=== PATIENT | female | born 1955 | race Caucasian/White ===

== ENCOUNTER 2016-11-10 21:32 | Emergency (ER) ==
[2016-11-10] MEDS ORDERED: ZOFRAN IV ONE (21:54)
[2016-11-10] MEDS ORDERED: ATIVAN IV ONE ×2 (21:54→23:35)
[2016-11-10] MEDS ORDERED: M.V.I.-12 10 ML, FOLIC ACID 1 MG, MAGNESIUM SULFATE 1 GM, THIAMINE 100 MG in NS 1,000 ML IV ONE (21:54)
[2016-11-10] MEDS ORDERED: ZOSYN 4.5 GM/NS 100 ML IV ONE (21:54)
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
[2016-11-10 22:12] LABS: MANUAL DIFF NEEDED? NO
[2016-11-10 22:15] LABS: BASO% 0.5 % (0.0-0.8); EOS# 0.13 X1000 (0.0-0.7); HEMOGLOBIN 11.8 g/dL (12.0-16.0); LYMPH% 41.8 % (20.5-51.1); MCH 30.3 PG (27-31); MCHC 32.8 g/dL (33-37); MCV 92.3 FL (81-99); MONO# 0.41 X1000 (0.11-0.59); MONO% 9.5 % (1.7-9.3); NEUT% 45.2 % (42.2-75.2); PLT 315 X1000 (130-400)
[2016-11-10 22:27] LABS: INR 0.96; PROTIME 9.8 Seconds (9.2-11.7); PTT 22.9 Seconds (22.0-36.0)
[2016-11-10 22:56] LABS: AGAP 19; ALBUMIN 3.3 g/dL (3.5-5.0); ALKALINE PHOSPHATASE 144 U/L (32-104); BUN 7 mg/dL (8-22); CALCIUM 8.7 mg/dL (8.8-10.2); CHLORIDE 97 mmol/L (98-107); CK PROFILE 154 U/L (24-173); COSMO 280; GOT 39 U/L (10-30); GPT 22 U/L (10-36); POTASSIUM 2.7 mmol/L (3.5-5.1); SODIUM 142 mmol/L (136-145); TCO2 26 mmol/L (25-35); TOTAL BILIRUBIN 0.16 mg/dL (0.20-1.00); TOTAL PROTEIN 5.8 g/dL (6.3-8.3)
--- NOTE | 2016-11-10 23:09 | Diag Imaging Result Document ---
PROCEDURE NAME: HEAD/C-SPINE W/O CONTRAST - 11/10/2016 STUDY: CT brain and cervical spine without contrast. BRAIN: No parenchymal hemorrhage. No epidural or subdural hematoma. No subarachnoid hemorrhage. No skull fracture. No sinus opacification. No hydrocephalus. No mass identified on this contrasted exam. IMPRESSION: No hemorrhage. No injury. CT CERVICAL SPINE WITHOUT CONTRAST: There is good alignment to the cervical spine. No precervical soft tissue swelling. No subluxation. No fracture. IMPRESSION: No acute bony injury. A preliminary report was given at 10:30 p.m.
[2016-11-10 23:31] LABS: URINE CULTURE NEEDED? NO; URINE MICRO REVIEW NEEDED? NO; URINE SOURCE CLEAN CATCH
[2016-11-10] MEDS ORDERED: POTASSIUM CHLORIDE 20 MEQ/SWI 100 ML IV ONE (23:34)
[2016-11-10 23:35] LABS: BILIRUBIN URINE NEGATIVE (NEGATIVE); BLOOD URINE NEGATIVE (NEGATIVE); COLOR YELLOW; GLUCOSE URINE NEGATIVE (NEGATIVE); LEUKOCYTES URINE NEGATIVE (NEGATIVE); NITRITE URINE NEGATIVE (NEGATIVE); PROTEIN URINE NEGATIVE (NEGATIVE); SP GRAVITY URINE 1.006; TURBIDITY URINE CLEAR (CLEAR); UR EPITHELIAL CELLS <10 /HPF (<10); URINE BACTERIA NEGATIVE /HPF; URINE RBC <10 /HPF (<10); URINE WBC <10 /HPF (<10); UROBILINOGEN URINE NORMAL (NORMAL)
[2016-11-10] MEDS ORDERED: KLOR-CON PO ONE (23:35)
[2016-11-10] MEDS ORDERED: GEODON IM ONE (23:42)
[2016-11-10] MEDS ORDERED: STERILE WATER INJ. INJ ONE (23:42)
[2016-11-10 23:50] LABS: UR AMPHETAMINES QUAL NONE DETECTED (NONE DETECT); UR BARBITUATES QUAL NONE DETECTED (NONE DETECT); UR BENZODIAZEPIN QUAL PRESUMPTIVE POSITIVE (NONE DETECT); UR CANNABINOIDS QUAL NONE DETECTED (NONE DETECT); UR COCAINE QUAL NONE DETECTED (NONE DETECT); UR METHADONE QUAL NONE DETECTED (NONE DETECT); UR OPIATES QUAL NONE DETECTED (NONE DETECT); UR OXYCODONE QUAL NONE DETECTED (NONE DETECT); UR PCP QUAL NONE DETECTED (NONE DETECT)
[2016-11-11] MEDS ORDERED: POTASSIUM CHLORIDE 20% LIQUID PO ONE (06:50)
--- NOTE | 2016-11-11 08:02 | Diag Imaging Result Document ---
PROCEDURE NAME: CHEST-2 VIEWS - 11/10/2016 FRONTAL AND LATERAL CHEST, THREE VIEWS: FINDINGS: The lungs are well expanded. The heart is not enlarged. The vessels are not distended. No pneumonia. No pleural effusions. IMPRESSION: No acute abnormality.
--- NOTE | 2016-11-11 08:07 | Diag Imaging Result Document ---
PROCEDURE NAME: PELVIS - 11/10/2016 PELVIS SINGLE VIEW: FINDINGS: No fracture. No dislocation. IMPRESSION: No acute bony injury.
[2016-11-11 10:37] LABS: AGAP 11; ALBUMIN 3.4 g/dL (3.5-5.0); ALKALINE PHOSPHATASE 147 U/L (32-104); BUN 5 mg/dL (8-22); CALCIUM 8.2 mg/dL (8.8-10.2); CHLORIDE 102 mmol/L (98-107); COSMO 278; GOT 44 U/L (10-30); GPT 23 U/L (10-36); POTASSIUM 4.4 mmol/L (3.5-5.1); SODIUM 141 mmol/L (136-145); TCO2 28 mmol/L (25-35); TOTAL BILIRUBIN 0.24 mg/dL (0.20-1.00); TOTAL PROTEIN 5.7 g/dL (6.3-8.3)
[2016-11-11 12:31] VITALS: BP 121/71
== END 2016-11-11 12:31 | disposition home or self-care (01) ==
LOC: ED 21:32
DX: F60.2 Antisocial personality disorder (principal); F91.8 Other conduct disorders; R45.1 Restlessness and agitation; S40.022A Contusion of left upper arm, initial encounter; S40.021A Contusion of right upper arm, initial encounter; S40.812A Abrasion of left upper arm, initial encounter; S40.811A Abrasion of right upper arm, initial encounter; S00.83XA Contusion of other part of head, initial encounter; S00.81XA Abrasion of other part of head, initial encounter; R42 Dizziness and giddiness; R47.81 Slurred speech; S61.512D Laceration without foreign body of left wrist, subsequent encounter; Y90.8 Blood alcohol level of 240 mg/100 ml or more; Z98.890 Other specified postprocedural states
CPT/HCPCS: 70450; 71020; 72125; 72170; 80053; 81001; 82150; 82550; 84484; 85025; 85610; 85730; 87040; 93005; 96365; 96366; 96367; 96375; 96376; G0480; J2060; J2405; J2543; J3411; J3475; J3480; J7030; 80320; 80324; 80345; 80346; 80349; 80353; 80358; 80361; 80365; 83992

== ENCOUNTER 2016-12-09 23:48 | Inpatient (IN) ==
[2016-12-10] MEDS ORDERED: NS 1,000 ML IV ONE (00:28)
[2016-12-10] MEDS ORDERED: M.V.I.-12 10 ML, FOLIC ACID 1 MG, MAGNESIUM SULFATE 1 GM, THIAMINE 100 MG in NS 1,000 ML IV ONE (00:29)
[2016-12-10 00:55] LABS: HEMOGLOBIN 11.3 g/dL (12.0-16.0); IMM GRAN# 0.03 X1000 (0.0-0.04); IMM GRAN% 0.5 % (0.0-0.5)
[2016-12-10 01:11] LABS: URINE CULTURE NEEDED? NO; URINE MICRO REVIEW NEEDED? NO; URINE SOURCE CATH
[2016-12-10 01:13] LABS: BILIRUBIN URINE NEGATIVE (NEGATIVE); BLOOD URINE NEGATIVE (NEGATIVE); COLOR YELLOW; GLUCOSE URINE NEGATIVE (NEGATIVE); LEUKOCYTES URINE NEGATIVE (NEGATIVE); NITRITE URINE NEGATIVE (NEGATIVE); PH URINE 6.5; PROTEIN URINE NEGATIVE (NEGATIVE); SP GRAVITY URINE 1.002; TURBIDITY URINE CLEAR (CLEAR); UROBILINOGEN URINE NORMAL (NORMAL)
[2016-12-10 01:27] LABS: UR AMPHETAMINES QUAL NONE DETECTED (NONE DETECT); UR BARBITUATES QUAL NONE DETECTED (NONE DETECT); UR BENZODIAZEPIN QUAL NONE DETECTED (NONE DETECT); UR CANNABINOIDS QUAL NONE DETECTED (NONE DETECT); UR COCAINE QUAL NONE DETECTED (NONE DETECT); UR METHADONE QUAL NONE DETECTED (NONE DETECT); UR OPIATES QUAL NONE DETECTED (NONE DETECT); UR OXYCODONE QUAL NONE DETECTED (NONE DETECT); UR PCP QUAL NONE DETECTED (NONE DETECT)
[2016-12-10 01:27] LABS: EOS# 0.01 X1000 (0.0-0.7); EOS% 0.2 % (0.0-10.0); HEMATOCRIT 30.9 % (37.0-47.0); LYMPH# 0.68 X1000 (1.2-3.4); LYMPH% 11.1 % (20.5-51.1); MANUAL DIFF NEEDED? NO; MCH 31.8 PG (27-31); MCHC 36.6 g/dL (33-37); MONO# 1.15 X1000 (0.11-0.59); MONO% 18.7 % (1.7-9.3); MPV 9.7 FL (7.4-10.4); NEUT% 69.5 % (42.2-75.2); PLT 314 X1000 (130-400); RBC 3.55 XMIL (4.2-5.4)
[2016-12-10] MEDS ORDERED: G.I. COCKTAIL PO ONE (01:28)
[2016-12-10 01:53] LABS: SODIUM 114 mmol/L (136-145)
[2016-12-10 01:54] LABS: AGAP 17; ALBUMIN 3.2 g/dL (3.5-5.0); ALKALINE PHOSPHATASE 168 U/L (32-104); AMYLASE 62 U/L (20-200); BUN 14 mg/dL (8-22); CALCIUM 8.7 mg/dL (8.8-10.2); CHLORIDE 72 mmol/L (98-107); COSMO 232; GOT 48 U/L (10-30); GPT 61 U/L (10-36); LIPASE 124 U/L (13-60); POTASSIUM 3.5 mmol/L (3.5-5.1); TCO2 25 mmol/L (25-35); TOTAL BILIRUBIN 1.41 mg/dL (0.20-1.00); TOTAL PROTEIN 5.8 g/dL (6.3-8.3)
[2016-12-10] MEDS ORDERED: ZOFRAN IV ONE (02:04)
[2016-12-10] MEDS ORDERED: MORPHINE IV ONE (02:05)
--- NOTE | 2016-12-10 02:44 | PROVIDER DOCUMENTATION ---
This chart was entered by Eliel Rajan Scribe, acting as scribe for Brandon Vallejo MD. [id number] Abuse/Overdose - General Chief Complaint: Intoxicated Stated Complaint: INTOXICATED Time Seen by Provider: 12/10/16 00:18 Source: patient Allergies/Adverse Reactions: Allergies Allergy/AdvReac Type Severity Reaction Status Date / Time No Known Allergies Allergy Verified 12/10/16 00:25 Home Medications: Home Medication List Medication Instructions Recorded Confirmed Last Taken Type Home Meds Unobtainable 11/10/16 12/10/16 Unknown History - History of Present Illness-Drug/Alcohol Nature of Presenting Problem: Pt is a 61 yof who presents to ER via EMS after family called due to concerns of pt's Etoh consumption. Pt has hx if etoh abuse and requested to go to etoh rehab (on exam). This episode of drinking or use began:: 5 days ago Severity: reports: moderate Psychiatric Complaints: reports: anxiety, depressed, frustrated. denies: angry , agitated, altered mental status, confused, hallucinating, hostile, homicidal thoughts, impaired concentration, ingestion, injury, insomnia, irritability, paranoid, , rapid pulse, restlessness, suicidal ideation, tremor Associated Symptoms: reports: anxiety, trouble walking. denies: arm pain, back/ neck pain, chest pain, constipation, cough, diaphoresis, diarrhea, dizziness, EENT symptoms, fatigue, fever/chills, genitourinary problems, headaches, heartburn, joint pain, loss of appetite, malaise, muscle aches, sinus congestion /drainage, nausea, rash, seizure, shortness of breath, sensory/motor loss, pain with inspiration, swelling/mass in abdomen, syncope, vomiting, weakness Any injuries associated with this episode of intoxication?: No Similar Symptoms Previously?: Yes Recently seen or treated by another doctor?: Yes - Substance Abuse Substance Use: reports: alcohol - Alcohol Abuse Usually drinks:: daily Review of Systems - Adult - REVIEW OF SYSTEMS - ADULT Constitutional: reports: alton. denies: chills, fever, night sweats, weight gain, weight loss Eyes: reports: no symptoms reported Ears, Nose, Mouth & Throat: reports: no symptoms reported Cardiovascular: reports: no symptoms reported Respiratory: reports: no symptoms reported Gastrointestinal: denies: abdominal pain, hematemesis, constipation, diarrhea, difficulty swallowing, frequent heartburn, nausea, poor appetite, rectal bleeding, vomiting Genitourinary: reports: no symptoms reported Musculoskeletal: reports: no symptoms reported Integumentary: reports: no symptoms reported Neurological: reports: dizziness/vertigo. denies: ataxia, headache/migraines, loss of balance, numbness, paresthesia, seizure, slurred speech, syncope, tremors Psychiatric: reports: anxiety, depression, emotional problems. denies: anti- depressant use, alcohol/drug dependence, insomnia, panic attacks, suicidal thoughts Endocrine: reports: no symptoms reported Hematologic/Lymphatic: reports: no symptoms reported Allergic/Immunologic: reports: no symptoms reported All Other Systems: Reviewed and Negative Past History - Adult - PAST MEDICAL HISTORY-ADULT Review of Records: reports: Nursing Assessment Review, Medications Reviewed Psychiatric: reports: depression - PRIOR SURGERIES/PROCEDURES Surgical/Procedure History: reports: none - IMMUNIZATION STATUS Childhood Immunizations: See Nurse Assessment Flu Vaccine: See Nurse Assessment Physical Exam-General - PHYSICAL EXAM-ADULT Initial Vital Signs Reviewed: Yes - CONSTITUTIONAL General Appearance: appears well, alert, mild distress, lethargic, slow to respond, obtunded. negative: no apparent distress - EYES Eyes: PERRL/EOMI, pink conjunctivae, fundi clear, no AV nicking - HEAD, EARS, NOSE, MOUTH & THROAT HENMT: normocephalic/atraumatic, moist mucous membranes, normal ENT inspection, TMs normal, pharynx normal. negative: pharyngeal erythema, tonsillar exudate, TM abnormal - NECK Neck: non-tender, full range of motion, supple. negative: C-spine tenderness, limited range of motion - RESPIRATORY Respiratory: chest non-tender, lungs clear, normal breath sounds, no pleuratic chest pain, no respiratory distress, no accessory muscle use. negative: respiratory distress, decreased breath sounds, accessory muscle use, crackles, stridor, wheezing - CARDIOVASCULAR Cardiovascular: normal peripheral pulses, regular rate, rhythm. negative: bradycardia, tachycardia, irregularly irregular - GASTROINTESTINAL (ABDOMEN) Abdominal Exam: normal bowel sounds, non tender, soft, no organomegaly, no pulsatile mass. negative: abnormal bowel sounds, distended, guarding, tenderness - MUSCULOSKELETAL Back Exam: no CVA tenderness, no vertebral tenderness. negative: CVA tenderness , decreased range of motion, ecchymosis, muscle spasm, swelling, vertebral tenderness Extremity: normal range of motion, non-tender, normal gait, normal inspection, no pedal edema, no calf tenderness, normal capillary refill. negative: deformity, erythema, inflammation, pedal edema, swelling, tenderness - SKIN Integumentary: normal color, normal turgor, warm/dry. negative: diaphoresis, ecchymosis, erythema, laceration(s), swelling, tenderness, warm - NEUROLOGIC Neurologic: assistant to the dean II-XII nml as tested, grossly normal, no motor/sensory deficits . negative: facial droop, focal weakness, motor weakness, sensory deficit - PSYCHIATRIC Psych/Mental Status: normal thought content, normal thought process, oriented x 3, depressed affect. negative: normal mood/affect Progress - PLAN OF CARE/RESULTS Progress/Plan/Lab Results: Vital Signs - 8 hr 12/09/16 23:48 12/10/16 00:42 12/10/16 01:30 Temperature 99.2 F 99.0 F Pulse Rate 77 78 79 Respiratory Rate 18 24 23 Blood Pressure 147/86 125/72 107/73 O2 Sat by Pulse Oximetry 100 100 100 12/10/16 02:28 Temperature Pulse Rate 76 Respiratory Rate 20 Blood Pressure 125/70 O2 Sat by Pulse Oximetry 99 Laboratory Results - last 24 hr 12/10/16 12/10/16 12/10/16 00:05 00:05 00:05 WBC 6.15 RBC 3.55 L Hgb 11.3 L Hct 30.9 L MCV 87.0 MCH 31.8 H MCHC 36.6 RDW Std Deviation 17.7 H Plt Count 314 MPV 9.7 Immature Gran % (Auto) 0.5 Neut % (Auto) 69.5 Lymph % (Auto) 11.1 L Robeson % (Auto) 18.7 H Eos % (Auto) 0.2 Baso % (Auto) 0.0 Immature Gran # (Auto) 0.03 Neut # (Auto) 4.28 Lymph # (Auto) 0.68 L Robeson # (Auto) 1.15 H Eos # (Auto) 0.01 Baso # (Auto) 0.00 Sodium 114 L* Potassium 3.5 Chloride 72 L Carbon Dioxide 25 Anion Gap 17 BUN 14 Creatinine 0.5 Estimated GFR/1.73 m2 > 60 BUN/Creatinine Ratio 28 Glucose 104 Calculated Osmolality 232 Calcium 8.7 L Total Bilirubin 1.41 H AST 48 H ALT 61 H Alkaline Phosphatase 168 H Total Protein 5.8 L Albumin 3.2 L Globulin 2.6 Albumin/Globulin Ratio 1.2 Amylase 62 Lipase 124 H Urine Source Urine Color Urine Turbidity Urine pH Ur Specific [place] Urine Protein Ur Glucose (Stick) Ur Ketones (Stick) Urine Blood Urine Nitrite Urine Bilirubin Urobilinogen Dipstick Urine Leukocytes Urine Opiates Screen Ur Oxycodone Screen Ur Methadone, Qual Ur Barbiturates Screen Ur Phencyclidine Scrn Ur Amphetamines Screen U Benzodiazepines Scrn Urine Cocaine Screen U Cannabinoids Screen Plasma/Serum Ethyl Alc 12/10/16 12/10/16 00:05 00:30 WBC RBC Hgb Hct MCV MCH MCHC RDW Std Deviation Plt Count MPV Immature Gran % (Auto) Neut % (Auto) Lymph % (Auto) Robeson % (Auto) Eos % (Auto) Baso % (Auto) Immature Gran # (Auto) Neut # (Auto) Lymph # (Auto) Robeson # (Auto) Eos # (Auto) Baso # (Auto) Sodium Potassium Chloride Carbon Dioxide Anion Gap BUN Creatinine Estimated GFR/1.73 m2 BUN/Creatinine Ratio Glucose Calculated Osmolality Calcium Total Bilirubin AST ALT Alkaline Phosphatase Total Protein Albumin Globulin Albumin/Globulin Ratio Amylase Lipase Urine Source CATH Urine Color YELLOW Urine Turbidity CLEAR Urine pH 6.5 Ur Specific [place] 1.002 Urine Protein NEGATIVE Ur Glucose (Stick) NEGATIVE Ur Ketones (Stick) TRACE A Urine Blood NEGATIVE Urine Nitrite NEGATIVE Urine Bilirubin NEGATIVE Urobilinogen Dipstick NORMAL Urine Leukocytes NEGATIVE Urine Opiates Screen NONE DETECTED Ur Oxycodone Screen NONE DETECTED Ur Methadone, Qual NONE DETECTED Ur Barbiturates Screen NONE DETECTED Ur Phencyclidine Scrn NONE DETECTED Ur Amphetamines Screen NONE DETECTED U Benzodiazepines Scrn NONE DETECTED Urine Cocaine Screen NONE DETECTED U Cannabinoids Screen NONE DETECTED Plasma/Serum Ethyl Alc Orders Category Date Time Status [facility] [place] Communication Order DIRECTED Care 12/10/16 02:05 Active ALCOHOL BLOOD Stat Lab 12/10/16 00:05 Completed AMYLASE [CHEM] Stat Lab 12/10/16 00:05 Completed CBC WITH ELECTRONIC DIFF [HEME] Stat Lab 12/10/16 00:05 Completed CMP [COMPREHENSIVE METABOLIC PANEL] [CHEM] Stat Lab 12/10/16 00:05 Completed LIPASE [CHEM] Stat Lab 12/10/16 00:05 Completed UA NIMS W/REFLEX CULT [URINALYSIS] Stat Lab 12/10/16 00:05 Results UDS [URINE DRUG SCREEN] Stat Lab 12/10/16 00:30 Completed 0.9% Sodium Chloride Inj [Ns] 1,000 ml Med 12/10/16 00:28 Discontinued IV 999 mls/hr Lido/Dupree Alk/Al&mg Hydrox [G.i. Cocktail] Med 12/10/16 01:28 Discontinued 30 ml PO NOW ONE Morphine Med 12/10/16 02:05 Discontinued 4 mg IV NOW ONE Mvi [M.v.i.-12] 10 ml Med 12/10/16 00:29 Discontinued Folic Acid 1 mg Magnesium Sulfate 1 gm Thiamine 100 mg 0.9% Sodium Chloride Inj [Ns] 1,000 ml IV NOW Ondansetron [Zofran] Med 12/10/16 02:04 Discontinued 4 mg IV NOW ONE Transfer/Admit Order [TRANSFER] Routine Transfer 12/10/16 02:19 Ordered Result Diagrams: 12/10/16 00:05 12/10/16 00:05 - REASSESSMENT Reassessment #1 Time Reassessed: 02:17 Status: other (Pt was discovered to be incontinent of stool/urine, appeared as though had been there for a while and pt now has ulcers and irritation to her bottom and vaginal area. Family is in charge of taking care of pt, but pt reports that her daughter has not been changing her.) Reassessment #2 Time Reassessed: 02:43 Status: improving (some pain relief from morphine) - CONSULTS/PCP/HOSPITALIST Notification #1 *Consult/PCP/Hospitalist*: Dr. Worrell (Hospitalist) Time Discussed: 02:15 Consult Disposition: Admit Departure - Departure Time of Disposition Decision: 02:15 DIAGNOSIS: Hyponatremia, Acute pancreatitis Disposition: ADMITTED INPATIENT 09 Certified Medical Emergency: Emergent Condition: Stable Additional Freetext Instructions: ED Follow Up Instructions: You have been treated by a care provider in the Emergency Department. These instructions are being provided to you so you can have an understanding of how to care for yourself upon discharge. Upon discharge from the Emergency Department, you are responsible for making arrangements for follow-up care by a physician of your choice. Take all prescribed medications as directed. Return to the Emergency Department immediately for any new or worsening symptoms. You may call the Physician Referral phone number at [phone] to obtain a list of Physicians who are taking new patients. Referrals and Follow-Ups: None,PCP [Primary Care Provider] - This chart was documented by the indicated scribe, (Eliel Rajan, Yasmin) and accurately reflects the services I performed and decisions made by me, Brandon Vallejo MD, as attested by the provider's signature.
[2016-12-10] MEDS ORDERED: NACL 3% 100 ML IV ONE ×2 (03:30→04:00)
--- NOTE | 2016-12-10 03:30 | HISTORY AND PHYSICAL ---
CHIEF COMPLAINT: Abdominal pain and Concern for alcohol abuse. HISTORY OF PRESENT ILLNESS: This is a 61-year-old, female who was brought to the emergency department after family called due to concerns for patient's alcohol consumption. Upon my examination here, the patient reports that during the last 5-10 days, she was complaining of abdominal pain in the epigastric area that was getting worse. She also was feeling sick but she was not vomiting. Today, the pain started getting worse so that is why she preferred to come here. She reports drinking like between 1/2 a gallon and 1 gallon of vodka daily. Last drinking was 2 days ago. The patient reported that while she is drinking alcohol, she does not need anything. Upon ER evaluation, she was found to have a sodium of 114 and also evaluation of lipase so patient is being admitted to the hospital for severe hyponatremia and acute alcoholic pancreatitis. PAST MEDICAL HISTORY: Patient has depression but does remember what medication she is on. PAST SURGICAL HISTORY: None. ALLERGIES: The patient is not allergic to anything. SOCIAL HISTORY: The patient lives with daughter and grandson. Patient reports drinking half a gallon of vodka daily. Denies smoking or using any illicit drugs. REVIEW OF SYSTEMS: The patient is not a good historian. All symptoms are related to H and P. PHYSICAL EXAMINATION: GENERAL: This is a 61-year-old, female lying in bed, in no acute distress. HEENT: Head is normocephalic and atraumatic. Anicteric sclerae and pale conjunctivae. Mucous membranes moist. VITAL SIGNS: Temperature 99 degrees, heart rate 76, respiratory rate 20, blood pressure 125/70, O2 saturation 99% on room air. NECK: Supple. No JVD noted. No carotid bruits. No lymphadenopathy. No thyromegaly. CARDIOVASCULAR: S1 and S2 heard. There is a systolic murmur located in the mitral area with radiation to the axilla. RESPIRATORY: Clear bilaterally to auscultation. No work of breathing or using accessory muscles. ABDOMEN: Soft. Mildly tender to palpation in the epigastric area. No signs of peritoneal irritation. EXTREMITIES: Marked bilateral edema in both lower extremities. NEUROLOGICAL: Patient moves 4 extremities. She is a poor historian. LABORATORY DATA: White cell count 6.15, hemoglobin 11.3, hematocrit 30.9, platelets 314,000. Sodium 114, potassium 3.5, chloride 72, BUN 14, creatinine 0.5, and glucose 104. Alcohol level of 0. ASSESSMENT/PLAN: 1. Acute pancreatitis. 2. Severe hyponatremia. 3. History of depression. PLAN: 1. The patient is going to be admitted to the hospital because of the severe hypernatremia definitely related to alcohol abuse. Also, she was found to have a lipase that was elevated. We made the diagnosis of pancreatitis. In any case, we prefer to have a CT of the abdomen with and without contrast to have a better visualization of the pancreatitis. We will keep this patient NPO except for medications. Because of the increasing low sodium, we are going to provide 3% normal saline to be given 100 mL, to be given 10-15 minutes. We are going to monitor the sodium closely, like q.4 hours today and we will go from there. We are going to provide also IV fluid resuscitation as well. For possible alcohol withdrawal, we will start Librium 50 mg p.o. t.i.d. The patient will be on Ativan just in case of agitation or seizures. 2. . 3. Because this patient lives alone and she has a history of a psychiatric disorder, we will consult social sciences instructor to most probably look for placement for this patient. cc: Grayson Razo MD
[2016-12-10 03:47] LABS: UR EPITHELIAL CELLS <10 /HPF (<10); URINE BACTERIA NEGATIVE /HPF; URINE RBC <10 /HPF (<10); URINE WBC <10 /HPF (<10)
[2016-12-10] MEDS: LOVENOX SUBQ SCH (04:00)
[2016-12-10] MEDS: MORPHINE IV PRN ×4 (04:10→23:50)
[2016-12-10] MEDS ORDERED: BLISTEX MEDICATED BERRY LIP BALM TOP PRN (05:58)
[2016-12-10] MEDS: NS 1,000 ML IV SCH ×2 (06:13→17:15)
--- NOTE | 2016-12-10 06:19 | Diag Imaging Result Document ---
PROCEDURE NAME: ABDOMEN/PELVIS W/WO CONTRAST - 12/10/2016 CT ABDOMEN AND PELVIS WITH AND WITHOUT INTRAVENOUS CONTRAST: FINDINGS: Noncontrasted images performed. No renal stones. No hydronephrosis. No perinephric inflammation. No bowel obstruction. No abscess. Post contrasted images performed. There is a tiny amount of pneumomediastinum. No pneumothorax. There is severe fatty infiltration of the liver. The patient has had a gastric bypass procedure and cholecystectomy. Tiny hiatal hernia. Normal spleen and adrenal glands. No pancreatic calcifications. No pseudocyst. No inflammation about the pancreas. Subtle irregular enhancement of the kidneys. No aortic aneurysm. There is a Ortiz catheter within the urinary bladder. No focal abnormality to the urinary bladder. Normal uterus. No free pelvic fluid. IMPRESSION: 1. Small amount of pneumomediastinum of uncertain etiology. 2. No CT evidence of pancreatitis. 3. Gastric bypass and cholecystectomy. 4. Severe fatty infiltration of the liver. 5. Questionable mild pyelonephritis. 6. Tiny hiatal hernia. A preliminary report was given at 3:55 a.m.
[2016-12-10 06:21] LABS: MANUAL DIFF NEEDED? NO
[2016-12-10 06:27] LABS: EOS# 0.01 X1000 (0.0-0.7); EOS% 0.2 % (0.0-10.0); HEMATOCRIT 28.3 % (37.0-47.0); HEMOGLOBIN 10.1 g/dL (12.0-16.0); IMM GRAN# 0.02 X1000 (0.0-0.04); IMM GRAN% 0.5 % (0.0-0.5); LYMPH# 0.69 X1000 (1.2-3.4); LYMPH% 15.8 % (20.5-51.1); MCH 31.8 PG (27-31); MCHC 35.7 g/dL (33-37); MONO# 0.71 X1000 (0.11-0.59); MONO% 16.2 % (1.7-9.3); MPV 9.2 FL (7.4-10.4); NEUT% 67.3 % (42.2-75.2); PLT 282 X1000 (130-400); RBC 3.18 XMIL (4.2-5.4)
[2016-12-10 06:46] LABS: AGAP 14; BUN 10 mg/dL (8-22); CALCIUM 8.2 mg/dL (8.8-10.2); CHLORIDE 90 mmol/L (98-107); COSMO 263; POTASSIUM 2.7 mmol/L (3.5-5.1); SODIUM 132 mmol/L (136-145); TCO2 28 mmol/L (25-35)
[2016-12-10] MEDS: PRILOSEC PO SCH (08:08)
[2016-12-10] MEDS: CALMOSEPTINE OINTMENT TOP PRN ×4 (08:09→20:00)
[2016-12-10 08:17] LABS: AGAP 14; BUN 10 mg/dL (8-22); CALCIUM 7.9 mg/dL (8.8-10.2); CHLORIDE 92 mmol/L (98-107); COSMO 266; POTASSIUM 3.3 mmol/L (3.5-5.1); SODIUM 134 mmol/L (136-145); TCO2 28 mmol/L (25-35)
[2016-12-10] MEDS ORDERED: LIBRIUM PO SCH (09:00)
[2016-12-10] MEDS ORDERED: POTASSIUM CHLORIDE 20% LIQUID PO ONE (10:53)
--- NOTE | 2016-12-10 11:24 | CONSULTATION ---
DATE OF CONSULTATION: 12/10/2016 REASON FOR ADMISSION: Abdominal pain, hyponatremia. REASON FOR CONSULTATION: Hyponatremia. CONSULTING PHYSICIAN: Dr. Worrell HISTORY OF PRESENT ILLNESS: This is a 61-year-old female, brought into the emergency room on day of admission secondary to her alcohol consumption and altered mental status. She complained of abdominal pain while she was in the emergency room. Underwent a CT of the abdomen secondary to elevated lipase and it was found to be negative for pancreatitis however she was found to be significantly hyponatremic with a sodium of 114. She was admitted to the hospital for further workup and treatment. Her hyponatremia was treated with a small dose bolus of 3 % saline 100 mL x2 with routine labs. Sodium responded significantly, and today is at 132. It was noted that the patient drinks between a half a gallon to a gallon of vodka daily, and pretty much has no other intake at that time. The patient today is awake and alert and is able to give some history although she is more concerned about abdominal pain and treatment for that. PAST MEDICAL HISTORY: History of depression. No home medications are noted. The patient has a history of schizophrenia. Minimal previous hospitalization records. ALLERGIES: NKDA HOME MEDICATIONS: None listed. FAMILY HISTORY: Noncontributory. SOCIAL HISTORY: ETOH use 1/2 to1 gallon of vodka daily. She lives with her daughter. She has previous episodes of AMS secondary to ETOH use. ROS: As noted above in HPI. PHYSICAL EXAM: General: Middle aged female who appears older than stated age. She is quite concerned about receiving pain relief for her abdominal pain. HEENT: PERRL, EOMI, OMM, dentition poor. Neck: No JVD. Trachea midline. CV: No murmur or gallop. Regular on monitor. PULM: CTA bilaterally. No increased work of breathing. ABD: Flat, positive bowel sounds. Diffuse tenderness. : Ortiz with clear yellow urine. Extremities: Trace pretibial edema. Moving all extremities. Integ: Warm and dry. Ecchymoses noted bilateral upper extremities. Neuro: Grossly nonfocal. LABS: WBC 4.3, hemoglobin 10.1, sodium 132, CO2 25, BUN 10, creatinine 0.5. Imaging: CT abd negative for pancreatitis. ASSESSMENT AND PLAN: 1. Hyponatremia, likely alcohol related potomania, resolved with small dose 3% saline bolus and now on normal saline. Continue serial labs. We have no further suggestions to add at this time. We will sign off. Please do not hesitate to contact us if she has further decline with her function. Thank you for the consult. Seen, data reviewed, discussed with Virgie Vega on 12/10/16. I agree with the above assessment and plan of care. rg Dictated by MEHRDAD Wing for Ang Phelps MD cc: Ang Phelps MD [facility]
--- NOTE | 2016-12-10 11:48 | PROGRESS NOTE ---
DATE: 12/10/2016 SUBJECTIVE: Today Ms. Freeman referred to be doing okay. She denies any chest pain. She does have some abdominal discomfort. OBJECTIVE: Vital Signs: Blood pressure is 116/62, pulse of 92, respirations 22, temperature is 97.9 degrees. General: Ms. Freeman is a 61-year-old female. She was in bed. She did not seem to be in any remarkable distress. HEENT: Mucosa is pink and dry. Anicteric and acyanotic. Neck: Supple. Chest: Clear. Cardiovascular: Regular rate and rhythm. There are no murmurs, no rubs, no gallops. Abdomen: Soft, nontender. Extremities: There is about 3+ pedal edema. Abdomen: Soft, distended. There seems to be some fluid dullness. ADVANCED SEAL DELIVERY SYSTEM: Patient is alert, oriented to person and to place. Disoriented to time. Cerebellar functions were not explored. LABORATORY DATA: WBC is 4.37, hemoglobin is 10.1, platelet count of 282,000. Chemistry is reviewed. Sodium is 134, potassium is 3.3, chloride is 92, bicarb is 28. Urine osmolarity was 82 on presentation and urine sodium was 10. DIAGNOSTIC STUDIES: A CT scan of the abdomen and pelvis which was done on presentation did show a small amount of pneumomediastinum of uncertain significance. No CT evidence of pancreatitis. Gastric bypass and cholecystectomy. Severe fatty infiltration of the liver. Questionable mild pyelonephritis and tiny hiatal hernia. ASSESSMENT: 1. Alcohol abuse. The patient normally takes about a half a gallon to a gallon of vodka on a daily basis. Her toxicology of alcohol was 0 when she came in. She is at risk for DT. We will therefore keep a very close eye on her. Alcohol cessation was recommended. 2. Severe hyponatremia. I think this is a combination of alcohol induced but patient is also significantly dehydrated. I think will continue with the hydration with normal saline, get her a euvolemic, and then start to address the tonicity. 3. Mildly elevated lipase, not in the range consistent with acute pancreatitis. However, we will keep a very close eye. Patient does not have any CT evidence of acute pancreatitis. However, she does have some epigastric to left side abdominal discomfort. Will continue treating this more symptomatically as if it was an acute pancreatitis. 4. Fatty liver disease secondary to alcohol disorder. 5. Transaminitis due to fatty liver disease. 6. Mild hiatal hernia noted on CT scan. 7. Lower extremity edema which I think is due to hypoalbuminemia and other nutritional deficiencies. PLAN: In general, Ms. Freeman seems to be doing fine. We are going to continue with the hydration. Will continue with pain management. I will start her on a regular diet and cut down on the morphine which is 2 g IV q.2 to q.4. I think patient is relatively stable to go to the floor if she is able to tolerate her diet. cc: Vidal Rosales MD
[2016-12-10] MEDS: LIBRIUM PO SCH ×2 (12:53→21:00)
[2016-12-10 13:32] LABS: AGAP 12; BUN 8 mg/dL (8-22); CHLORIDE 94 mmol/L (98-107); COSMO 266; SODIUM 133 mmol/L (136-145); TCO2 27 mmol/L (25-35)
[2016-12-10 16:25] LABS: AGAP 11; BUN 6 mg/dL (8-22); CALCIUM 7.8 mg/dL (8.8-10.2); CHLORIDE 93 mmol/L (98-107); COSMO 261; POTASSIUM 3.2 mmol/L (3.5-5.1); SODIUM 131 mmol/L (136-145); TCO2 27 mmol/L (25-35)
[2016-12-10 20:26] LABS: AGAP 14; BUN 6 mg/dL (8-22); CALCIUM 7.8 mg/dL (8.8-10.2); CHLORIDE 94 mmol/L (98-107); COSMO 264; POTASSIUM 3.4 mmol/L (3.5-5.1); SODIUM 133 mmol/L (136-145); TCO2 25 mmol/L (25-35)
--- NOTE | 2016-12-10 20:49 | ECHO REPORT ---
ORDER DATE: 12/10/2016 MEASUREMENTS: Left ventricular end-diastolic diameter 4.2, end systolic diameter 2.3, septal thickness 0.6, posterior wall thickness 0.6, left atrium 2.9, aortic root 2.9 SUMMARY: 1. Adequate quality study. 2. Aortic valve is trileaflet and opens normally. Mitral, tricuspid and pulmonic valves are without obstruction abnormality with mild mitral regurgitation and trace tricuspid regurgitation. Estimated systolic PA pressure by Doppler is 30-35 mmHg. The aortic root is normal in size. 3. Normal left suggested. The left ventricle is hyperdynamic with estimated left ejection fraction of at least 75% without regional wall motion abnormality. Doppler demonstrates a gradient in left trigger outflow tract of 25 mmHg at rest that does not increase with Valsalva maneuver. Doppler suggests normal left ventricular diastolic function. Left atrium, right atrium, right ventricle have normal size with grossly preserved right ventricular systolic performance. 4. No pericardial effusion. 5. Appearance of inferior vena cava suggests normal central venous pressure. CONCLUSIONS: 1. Mild mitral regurgitation. 2. Hyperdynamic left ventricle with estimated left ejection fraction of at least 75%. 3. Resting peak gradient and left outflow tract of 25 mmHg does not increase with Valsalva. cc: MD Grayson Cintron MD
[2016-12-11] MEDS: CALMOSEPTINE OINTMENT TOP PRN ×2 (00:05→07:28)
[2016-12-11] MEDS: ATIVAN IV PRN (01:05)
[2016-12-11] MEDS: NS 1,000 ML IV SCH ×3 (03:22→23:17)
[2016-12-11] MEDS: LOVENOX SUBQ SCH (05:17)
[2016-12-11] MEDS: LIBRIUM PO SCH ×3 (05:18→21:15)
[2016-12-11] MEDS: ZOFRAN IV PRN ×2 (06:36→19:58)
[2016-12-11 06:40] LABS: MANUAL DIFF NEEDED? NO
[2016-12-11 07:01] LABS: EOS# 0.06 X1000 (0.0-0.7); EOS% 1.1 % (0.0-10.0); HEMATOCRIT 28.2 % (37.0-47.0); HEMOGLOBIN 9.5 g/dL (12.0-16.0); IMM GRAN# 0.02 X1000 (0.0-0.04); IMM GRAN% 0.4 % (0.0-0.5); LYMPH# 1.32 X1000 (1.2-3.4); LYMPH% 23.2 % (20.5-51.1); MCH 31.4 PG (27-31); MCHC 33.7 g/dL (33-37); MCV 93.1 FL (81-99); MONO# 0.59 X1000 (0.11-0.59); MONO% 10.4 % (1.7-9.3); MPV 9.8 FL (7.4-10.4); NEUT% 64.9 % (42.2-75.2); PLT 265 X1000 (130-400); RBC 3.03 XMIL (4.2-5.4)
[2016-12-11 07:30] LABS: AGAP 10; BUN 4 mg/dL (8-22); CALCIUM 8.1 mg/dL (8.8-10.2); CHLORIDE 98 mmol/L (98-107); COSMO 266; SODIUM 135 mmol/L (136-145); TCO2 27 mmol/L (25-35)
[2016-12-11] MEDS ORDERED: KLOR-CON PO ONE (08:22)
[2016-12-11] MEDS: PRILOSEC PO SCH (08:51)
[2016-12-11] MEDS: MORPHINE IV PRN ×3 (09:01→23:21)
--- NOTE | 2016-12-11 11:12 | PROGRESS NOTE ---
DATE: 12/11/2016 SUBJECTIVE: Patient reports feeling better. Reports mild nausea but she is not vomiting. She reports no abdominal pain but she claims having back pain. OBJECTIVE: Vital Signs: Temperature 97.2 degrees, heart rate 85, respiratory 14, blood pressure 119/77, O2 saturation 100% on room air. General Examination: This is a chronically ill-looking and frail, 61-year-old female lying in bed, in no acute distress. HEENT: Head is normocephalic, atraumatic. Anicteric sclerae and pale conjunctivae. Mucous membranes moist. Neck: Supple. No JVD noted. No carotid bruits. No lymphadenopathy. No thyromegaly. Cardiovascular: S1, S2 heard. No murmurs, gallops, or rubs. Regular rate and rhythm. Respiratory: Clear bilaterally to auscultation. No work of breathing or using accessory muscles. Abdomen: Soft, nontender to palpation. Bowel sounds present. No organomegaly. Extremities: 3+ pitting edema in both lower extremities. Neurologic exam: Patient is alert and oriented x3. Moves 4 extremities. Is sleepy today. LABORATORY DATA: White cell count 5.72, hemoglobin 9.5, hematocrit 28.2, platelets 265,000. Sodium 135, potassium 3.0. Rest of the BMP is normal. ASSESSMENT AND PLAN: 1. Severe hyponatremia. The sodium is back to normal. I think it was a combination of alcohol abuse and dehydration. At this point, we will continue with IV fluids with normal saline. 2. Mildly elevated lipase. Patient is doing fine with no abdominal pain and although the lipase was slightly elevated at admission, CT scan ruled out pancreatitis. At this time, we are going to continue watching this patient closely here. 3. Alcohol abuse. Patient is a high risk of DTs because usually she takes between half a gallon to a gallon of vodka in a daily basis so, she is on Librium. 4. Fatty liver disease secondary to alcohol disorder. Aware. 5. Transaminitis secondary to chronic alcohol abuse. Aware. 6. Bilateral lower extremity edema. I think this is secondary to hypovolemia because of liver disease. Echocardiogram shows that the cardiac function is okay. 7. Physical deconditioning. We are going to consult physical therapy and see if they recommend this patient can go home versus rehab facility. cc: Grayson Razo MD
[2016-12-12] MEDS: MORPHINE IV PRN ×2 (03:02→09:29)
[2016-12-12] MEDS: LOVENOX SUBQ SCH (05:55)
[2016-12-12] MEDS: LIBRIUM PO SCH ×3 (05:55→21:07)
[2016-12-12 06:48] LABS: MANUAL DIFF NEEDED? NO
[2016-12-12 06:52] LABS: BASO% 0.3 % (0.0-0.8); EOS# 0.13 X1000 (0.0-0.7); EOS% 2.1 % (0.0-10.0); HEMATOCRIT 30.7 % (37.0-47.0); HEMOGLOBIN 9.9 g/dL (12.0-16.0); IMM GRAN# 0.03 X1000 (0.0-0.04); IMM GRAN% 0.5 % (0.0-0.5); LYMPH# 1.58 X1000 (1.2-3.4); LYMPH% 25.6 % (20.5-51.1); MCH 30.7 PG (27-31); MCHC 32.2 g/dL (33-37); MCV 95.3 FL (81-99); MONO# 0.86 X1000 (0.11-0.59); MONO% 13.9 % (1.7-9.3); MPV 9.6 FL (7.4-10.4); NEUT% 57.6 % (42.2-75.2); PLT 290 X1000 (130-400); RBC 3.22 XMIL (4.2-5.4)
[2016-12-12] MEDS: NS 1,000 ML IV SCH (08:51)
[2016-12-12] MEDS: PRILOSEC PO SCH (08:51)
[2016-12-12 12:29] LABS: AGAP 10; BUN 8 mg/dL (8-22); CALCIUM 7.7 mg/dL (8.8-10.2); CHLORIDE 103 mmol/L (98-107); COSMO 269; POTASSIUM 3.9 mmol/L (3.5-5.1); SODIUM 136 mmol/L (136-145); TCO2 23 mmol/L (25-35)
[2016-12-12] MEDS: DIFLUCAN PO SCH (13:22)
[2016-12-12] MEDS: MAALOX PLUS LIQUID PO SCH ×2 (13:22→17:34)
--- NOTE | 2016-12-12 15:37 | PROGRESS NOTE ---
DATE: 12/12/2016 SUBJECTIVE: Patient reports feeling better, although she reports some mild pain and itching in the sacral area. She reports that she was not able to get up for a few weeks. She also reports some burning on urination. OBJECTIVE: Vital Signs: Temperature 97.9 degrees, heart rate 83, respiratory rate 19, blood pressure 110/72, O2 saturation 100% on room air. General: This is a chronically ill-looking and frail, 61-year-old female lying in bed, in no acute distress. HEENT: Head is normocephalic, atraumatic. Anicteric sclerae and pale conjunctivae. Mucous membranes moist. Neck: Supple. No JVD noted. No carotid bruits. No lymphadenopathy. No thyromegaly. Cardiovascular: S1, S2 heard. No murmurs, gallops, or rubs. Regular rate and rhythm. Respiratory: Clear bilaterally to auscultation. No work of breathing or using accessory muscles. Abdomen: Soft, nontender to palpation. Bowel sounds present. No organomegaly. Extremities: 3+ pitting edema in both lower extremities. There is also a sacral superficial wound that coapts to the lumbar area and to the perineal area as well. There is no secretions coming out from there. Neurological: Patient is alert and oriented x3. Moves 4 extremities. LABORATORY DATA: White cell count 6.17, hemoglobin 9.9, hematocrit 30.7, platelets 290,000. BMP shows sodium 136, rest of the BMP is completely unremarkable. ASSESSMENT AND PLAN: 1. Severe hyponatremia. That condition is completely resolved. 2. Mildly elevated lipase. That condition is resolved. Patient is not complaining of any abdominal pain and of course, the computed tomography scan did not show any signs of pancreatitis. 3. Alcohol abuse. Patient has at high risk of delirium tremens because she takes between half a gallon to a gallon of vodka on a daily basis. So we are going to continue with Librium. 4. Fatty liver disease secondary to alcohol disorder, aware. 5. Transaminitis, secondary to alcohol abuse, aware. 6. Bilateral lower extremity edema secondary to hypervolemia. Echocardiogram showed that the cardiac function is stable. Continue with the same management. 7. Physical deconditioning. Patient reports feeling very weak, and the fact that she has this superficial wound in the sacral area does seem to confirm that she was not being very mobile. In any case, we have consulted physical therapy yesterday but for unknown reasons that order fell off, so we have put a consult today, we will check with them and see if they recommend physical therapy at home versus rehab facility. cc: Grayson Razo MD
[2016-12-13] MEDS ORDERED: NS 500 ML ONE (00:06)
[2016-12-13] MEDS: MORPHINE IV PRN ×5 (01:34→22:56)
[2016-12-13] MEDS: ATIVAN IV PRN (01:56)
[2016-12-13] MEDS: ZOFRAN IV PRN (03:46)
[2016-12-13] MEDS: LIBRIUM PO SCH ×3 (05:59→16:01)
[2016-12-13] MEDS: LOVENOX SUBQ SCH (06:00)
[2016-12-13] MEDS: NS 1,000 ML IV SCH ×3 (06:07→16:01)
[2016-12-13] MEDS: DIFLUCAN PO SCH (08:33)
[2016-12-13] MEDS: PRILOSEC PO SCH (08:33)
[2016-12-13] MEDS: MAALOX PLUS LIQUID PO SCH ×3 (08:33→16:01)
--- NOTE | 2016-12-13 11:46 | PROGRESS NOTE ---
DATE: 12/13/2016 SUBJECTIVE: Patient reports feeling still weak. Mild pain and itching in the sacral area. OBJECTIVE: Vital Signs: Temperature 98.4, heart rate 77, respiratory 20, blood pressure 102/59, O2 saturation 100% on room air. General examination: This is a chronically ill-looking and frail, 61-year-old female lying in bed, in no acute distress. HEENT: Head is normocephalic, atraumatic. Anicteric sclerae and pale conjunctivae. Mucous membranes moist. Neck: Supple. No JVD noted. No carotid bruits. No lymphadenopathy. No thyromegaly. Cardiovascular: S1, S2 heard. No murmurs, gallops, or rubs. Regular rate and rhythm. Respiratory: Clear bilaterally to auscultation. No work of breathing or using accessory muscles. Abdomen: Soft, nontender to palpation. Bowel sounds present. No organomegaly. Extremities: 3+ pitting edema in both lower extremities. Skin: There is also a sacral superficial wound that goes up to the lumbar area and to the perineal area as well. There is no secretion coming out from there. Neurological: Patient is alert and oriented x3. Moves 4 extremities. LABORATORY DATA: None. ASSESSMENT AND PLAN: 1. Severe hyponatremia, resolved. 2. Mild elevated lipase, resolved. Patient is eating okay and not complaining of any abdominal pain. 3. Alcohol abuse. Because the patient has high risk of delirium tremens, he was started on Librium, initially 50 mg p.o. 3 times per day, and after 4 days I think we are going to start tapering off to 25 mg p.o. b.i.d. 4. Fatty liver disease secondary to alcohol consumption. We are aware of that. 5. Transaminitis, aware. 6. Physical deconditioning. Patient reports that she has been feeling very weak for some weeks. The patient reports that sometimes she has to crawl and ask for help to her neighbors. 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 At this point, she needs to go definitely to rehab facility, because it is not safe to discharge this patient from here. We have talked with social science analyst and will see if we can get a bed for her as a julito for [facility], considering that this patient does not have insurance. cc: Grayson Razo MD
[2016-12-14] MEDS: ZOFRAN IV PRN (01:14)
[2016-12-14] MEDS: LOVENOX SUBQ SCH (06:00)
[2016-12-14] MEDS: MORPHINE IV PRN ×2 (06:32→10:58)
[2016-12-14] MEDS: DIFLUCAN PO SCH (10:06)
[2016-12-14] MEDS: PRILOSEC PO SCH (10:06)
[2016-12-14] MEDS: LIBRIUM PO SCH ×3 (10:06→16:57)
[2016-12-14] MEDS: MAALOX PLUS LIQUID PO SCH ×3 (10:06→16:58)
[2016-12-14] MEDS: NS 1,000 ML IV SCH ×2 (11:57→21:00)
[2016-12-14] MEDS: NORCO-5 PO PRN ×3 (14:13→21:30)
--- NOTE | 2016-12-14 15:04 | PROGRESS NOTE ---
DATE: 12/14/2016 SUBJECTIVE: The patient reports still feeling weak but according to Physical Therapy and she is able to get up with assistance and she is able to go to the bathroom and go back. Of course, she feels still weak. She also complains of mild abdominal pain around the epigastric area. OBJECTIVE: Vital Signs: Temperature 98.1 degrees, heart rate 81, respiratory rate 20, blood pressure 101/59, O2 saturation 100% on room air. General Examination: This is a chronically ill- looking and frail, 61-year-old female lying in bed, in no acute distress. HEENT: Head is normocephalic and atraumatic. Anicteric sclerae and pale conjunctivae. Mucous membranes moist. Neck: Supple. No JVD noted. No carotid bruits. No lymphadenopathy. No thyromegaly. Cardiovascular Exam: S1-S2 heard. No murmurs, gallops, or rubs. Regular rate and rhythm. Respiratory: Clear bilaterally to auscultation. No work of breathing or using accessory muscles. Abdomen: Soft, nontender to palpation. Bowel sounds present. No organomegaly. Extremities: No clubbing, cyanosis, or edema. Peripheral pulses present in both legs. Neurological: Patient is alert and oriented x3. Able to move her extremities. Cranial nerves 2-12 grossly normal. LABORATORY DATA: None from today. ASSESSMENT AND PLAN: 1. Severe hyponatremia. Resolved. 2. Mild elevated lipase. That condition resolved. Patient is eating okay. 3. Alcohol abuse. Patient is on Librium 25 mg p.o. b.i.d. That is because of high alcohol consumption. She usually drinks between half a gallon and 1 gallon of vodka daily. She is not developing any signs of alcohol withdrawal. 4. Fatty liver disease. That condition was of course related to alcohol consumption. 5. Physical deconditioning. The patient does not have insurance, and very weak to be sent home, it is not safe to send her home. Patient is working with Physical Therapy and doing good progress. Unfortunately we need to keep her here until we find a place for her. cc: Grayson Razo MD
[2016-12-14] MEDS: CARAFATE PO SCH ×2 (16:57→20:59)
[2016-12-15] MEDS: ATIVAN IV PRN (00:24)
[2016-12-15] MEDS: LOVENOX SUBQ SCH (06:24)
[2016-12-15] MEDS: NORCO-5 PO PRN ×3 (06:24→20:29)
[2016-12-15] MEDS: DIFLUCAN PO SCH (08:55)
[2016-12-15] MEDS: PRILOSEC PO SCH (08:55)
[2016-12-15] MEDS: LIBRIUM PO SCH ×3 (08:55→16:36)
[2016-12-15] MEDS: NS 1,000 ML IV SCH ×3 (08:55→18:59)
[2016-12-15] MEDS: MAALOX PLUS LIQUID PO SCH ×3 (08:55→16:36)
[2016-12-15] MEDS: CARAFATE PO SCH ×4 (08:55→20:29)
[2016-12-15] MEDS: MORPHINE IV PRN ×2 (13:14→18:53)
--- NOTE | 2016-12-15 14:07 | PROGRESS NOTE ---
DATE: 12/15/2016 SUBJECTIVE: Patient reports feeling fine. She is still feeling weak. No abdominal pain. No nausea or vomiting. OBJECTIVE: Vital Signs: Temperature 98.3 degrees, heart rate 86, respiratory rate 18, blood pressure 113/69, O2 saturation 99% on room air. General Examination: This is a chronically ill- looking and frail, looking older than her age, 61-year-old female lying in bed, in no acute distress. HEENT: Head is normocephalic, atraumatic. Anicteric sclerae and pale conjunctivae. Mucous membranes moist. Neck: Supple. No JVD noted. No carotid bruits. No lymphadenopathy. No thyromegaly. Cardiovascular: S1, S2 heard. No murmurs, gallops, or rubs. Regular rate and rhythm. Respiratory: Clear bilaterally to auscultation. No work of breathing or using accessory muscles. Abdomen: Soft, nontender to palpation. Bowel sounds present. No organomegaly. Extremities: No clubbing, cyanosis, or edema. Peripheral pulses present in both legs. Neurological: Patient alert. There is 2+ pitting edema in both lower extremities. No clubbing or cyanosis. Peripheral pulses present in both legs but faint. Neurologic: Patient alert and oriented x3. Able to move her extremities. Cranial nerves 2-12 grossly normal. LABORATORY DATA: None from today. ASSESSMENT AND PLAN: 1. Severe hyponatremia. Resolved. 2. Mild elevated lipase and abdominal pain. Resolved. Patient is feeling okay. 3. Alcohol abuse. Patient is on Librium 25 mg p.o. b.i.d. because she usually drinks between half a gallon and one gallon of vodka daily. Patient is doing fine. Currently on Librium 25 mg p.o. b.i.d. We will continue with the same management. 4. No signs of alcohol withdrawal at all. 5. Fatty liver disease. Aware. 6. Physical deconditioning. Patient is very weak and she does not have any insurance. She does have Medicaid from [place]. psychotherapist social worker is working on placement but definitely she is not safe to send her home. We will see what social media content specialist has to say on Saturday. cc: Grayson Razo MD
[2016-12-15] MEDS: CALMOSEPTINE OINTMENT TOP PRN (20:30)
[2016-12-16] MEDS: MORPHINE IV PRN ×5 (00:13→21:01)
[2016-12-16] MEDS: ZOFRAN IV PRN ×2 (01:24→21:01)
[2016-12-16] MEDS: NORCO-5 PO PRN (04:06)
[2016-12-16] MEDS: NS 1,000 ML IV SCH ×2 (04:06→15:52)
[2016-12-16] MEDS: LOVENOX SUBQ SCH (04:40)
[2016-12-16 07:31] LABS: MANUAL DIFF NEEDED? NO
[2016-12-16 07:36] LABS: BASO% 0.6 % (0.0-0.8); EOS# 0.04 X1000 (0.0-0.7); EOS% 1.1 % (0.0-10.0); HEMATOCRIT 28.9 % (37.0-47.0); HEMOGLOBIN 9.3 g/dL (12.0-16.0); LYMPH# 1.45 X1000 (1.2-3.4); LYMPH% 40.2 % (20.5-51.1); MCH 31.3 PG (27-31); MCHC 32.2 g/dL (33-37); MCV 97.3 FL (81-99); MONO# 0.72 X1000 (0.11-0.59); MONO% 19.9 % (1.7-9.3); NEUT% 38.2 % (42.2-75.2); PLT 378 X1000 (130-400); RBC 2.97 XMIL (4.2-5.4)
[2016-12-16 07:52] LABS: AGAP 8; BUN 8 mg/dL (8-22); CHLORIDE 109 mmol/L (98-107); COSMO 280; POTASSIUM 4.2 mmol/L (3.5-5.1); SODIUM 142 mmol/L (136-145); TCO2 25 mmol/L (25-35)
[2016-12-16] MEDS: DIFLUCAN PO SCH (09:20)
[2016-12-16] MEDS: MAALOX PLUS LIQUID PO SCH ×3 (09:20→17:07)
[2016-12-16] MEDS: LIBRIUM PO SCH ×2 (09:20→17:06)
[2016-12-16] MEDS: CARAFATE PO SCH ×4 (09:20→21:01)
[2016-12-16] MEDS: PRILOSEC PO SCH (09:20)
--- NOTE | 2016-12-16 14:53 | PROGRESS NOTE ---
DATE: 12/16/2016 SUBJECTIVE: Patient reports feeling fine. No abdominal pain. No nausea or vomiting. OBJECTIVE: Vital Signs: Temperature 97.9 degrees, heart rate 74, respiratory 17, blood pressure 115/70, O2 saturation 100% on room air. General Examination: This is a chronically ill-looking and frail, looking older than her age, 61-year-old female lying in bed, in no acute distress. HEENT: Head is normocephalic, atraumatic. Neck: Supple. No JVD noted. Cardiovascular: S1, S2 heard. No murmurs, gallops, or rubs. Respiratory: Clear bilaterally to auscultation. No work of breathing or using accessory muscles. Abdomen: Soft, nontender to palpation. Bowel sounds present. No organomegaly. Extremities: No clubbing, cyanosis, or edema. Peripheral pulses present in both legs. Neurological: Patient is alert and oriented x3. Able to move 4 extremities. Cranial nerves 2-12 grossly normal. LABORATORY DATA: Reviewed. ASSESSMENT AND PLAN: 1. Severe hyponatremia, resolved. 2. Mild pancreatitis, resolved. 3. Alcohol abuse. Patient is on 25 mg of Librium p.o. b.i.d. She is not showing any signs of alcohol withdrawal. We will reduce the dosage to 2 Librium 10 mg p.o. b.i.d. 4. Fatty liver disease. Aware. 5. Physical deconditioning. As we mentioned before, patient is very weak. She is working really hard with physical therapy, but because of lack of insurance, will be a difficult placement. We will see what social work associate has to say Saturday. cc: Grayson Razo MD
[2016-12-17] MEDS: MORPHINE IV PRN ×4 (02:14→16:37)
[2016-12-17] MEDS: NS 1,000 ML IV SCH ×3 (02:14→21:50)
[2016-12-17] MEDS: LOVENOX SUBQ SCH (04:51)
[2016-12-17] MEDS: ZOFRAN IV PRN (04:51)
[2016-12-17 06:45] LABS: AGAP 9; BUN 6 mg/dL (8-22); CALCIUM 8.1 mg/dL (8.8-10.2); CHLORIDE 107 mmol/L (98-107); COSMO 284; POTASSIUM 3.8 mmol/L (3.5-5.1); SODIUM 144 mmol/L (136-145); TCO2 28 mmol/L (25-35)
[2016-12-17] MEDS: DIFLUCAN PO SCH (09:13)
[2016-12-17] MEDS: PRILOSEC PO SCH (09:13)
[2016-12-17] MEDS: MAALOX PLUS LIQUID PO SCH ×3 (09:14→16:38)
[2016-12-17] MEDS: CARAFATE PO SCH ×4 (09:14→21:49)
[2016-12-17] MEDS: LIBRIUM PO SCH ×3 (09:16→21:49)
[2016-12-17] MEDS: NORCO-5 PO PRN ×2 (09:20→21:49)
[2016-12-17] MEDS ORDERED: GOLYTELY PO ONE (13:24)
--- NOTE | 2016-12-17 13:26 | Diag Imaging Result Document ---
PROCEDURE NAME: ABDOMEN/PELVIS W/WO CONTRAST - 12/17/[address] dose reduction protocol was used. COMPARISON: 12/10/2016. FINDINGS: On the noncontrast exam, there are no abnormal calcifications. On the contrast-enhanced exam, there are trace bilateral pleural effusions. There is some pulmonary edema in the lung bases, and some dependent atelectasis as well. Stable gastric bypass changes. Stable cholecystectomy. There is fatty change of the liver. There is constipation with large rectal stool impaction. There is a 6.5 cm rectal stool ball. No free air or free fluid. There is significant, worsening flank edema. Ortiz catheter in the urinary bladder. There are some injection sites in the anterior abdominal body wall. Bony structures are intact. IMPRESSION: 1. Constipation with rectal stool impaction. 2. Hepatic steatosis. 3. Pulmonary edema, pleural effusions, and flank edema. MTDD
--- NOTE | 2016-12-17 15:15 | PROGRESS NOTE ---
DATE: 12/17/2016 SUBJECTIVE: Patient reports still complaining of mild abdominal pain in the periumbilical area. She denies any vomiting. She reports that she did not have any bowel movement during the last 4-5 days. OBJECTIVE: Vital Signs: Temperature 97.9 degrees, heart rate 81, respiratory rate 17, blood pressure 120/74, O2 saturation 100% on room air. This is a chronically ill-looking and frail, looking older than her age, 61-year-old female lying in bed, in no acute distress. HEENT: Head is normocephalic, atraumatic. Anicteric sclerae. Pale conjunctivae. Mucous membranes moist. Neck: Supple. No JVD noted. No carotid bruits. Cardiovascular: S1, S2 heard. No murmurs, gallops, or rubs. Regular rate and rhythm. Respiratory: Clear bilaterally to auscultation. No work of breathing or using accessory muscles. Abdomen: Soft. Nontender to palpation. Bowel sounds present. No organomegaly. Extremity: No clubbing, cyanosis, or edema. Peripheral pulses present in both legs. Neurological: Patient is alert and oriented x3. Moves 4 extremities. LABORATORY DATA: Reviewed. ASSESSMENT AND PLAN: 1. Severe hyponatremia. That condition is completely resolved. 2. Mild pancreatitis. This condition resolved a few days ago, although she started having abdominal pain again but this time in the periumbilical area. In any case, we have ordered a CT of the abdomen and pelvis to make sure that everything is fine and it actually showed severe constipation with fecal impaction. At this time, we are going to order GoLYTELY to be given until this patient starts having bowel movements. 3. Fatty liver disease. Definitely related to chronic alcohol consumption. 4. Alcohol abuse. Patient is on Librium initially 50 mg t.i.d. and now 10 mg p.o. t.i.d. We will continue with this medication. We will plan, of course, to wean off this medication slowly. 5. Physical deconditioning. Patient is still extremely low, probably because of alcohol and myopathy, so physical therapy is working with her. The patient only has Medicaid [place] insurance so we will see if we can get a bed for her. Patient informed about the possibility to go to [facility] because probably she will need to stay here in the hospital for a few more days but she reports that she does not want to be transferred anywhere. 6. Overall this patient is doing good. Admitted initially because of severe hyponatremia 114 and also severe alcohol consumption. Now those conditions are resolved. Abdominal pain is still bothering her but it is definitely no that bad. CT of the abdomen is very unremarkable. So at this point, we are waiting for placement for this patient because she is extremely weak and she was not able to walk around for few months. farmworkers will the case. cc: Grayson Razo MD
[2016-12-17] MEDS: REMERON PO SCH (21:49)
[2016-12-18] MEDS: MORPHINE IV PRN ×2 (09:21→18:18)
[2016-12-18] MEDS: NS 1,000 ML IV SCH ×3 (09:21→18:18)
[2016-12-18] MEDS: MAALOX PLUS LIQUID PO SCH ×3 (09:31→18:14)
[2016-12-18] MEDS: CARAFATE PO SCH ×4 (09:32→21:43)
[2016-12-18] MEDS: LIBRIUM PO SCH ×3 (09:32→18:14)
[2016-12-18] MEDS: PRILOSEC PO SCH (09:32)
[2016-12-18] MEDS: LOVENOX SUBQ SCH (09:32)
[2016-12-18] MEDS: NORCO-5 PO PRN ×2 (11:17→19:30)
[2016-12-18] MEDS ORDERED: DULCOLAX PR ONE ×2 (14:15→22:00)
[2016-12-18] MEDS ORDERED: FLEET ENEMA PR ONE (15:21)
--- NOTE | 2016-12-18 18:14 | PROGRESS NOTE ---
DATE: 12/18/2016 SUBJECTIVE: This patient is still complaining of mild epigastric pain and also pain at the level of the periumbilical area. She is still having mild nausea but no vomiting. OBJECTIVE: Vital Signs: Temperature 97.9 degrees, pulse 80, respiratory rate 20, blood pressure 80/54, oxygen saturation 95% on room air. HEENT: Head normocephalic. No trauma. PERRLA. Neck: Supple. No JVD. No masses. Central trachea. Cardiovascular: RRR. No murmurs. Chest: Clear to auscultation. No wheezing. No rales. Abdomen: Soft, mild tenderness to palpation at the level of the periumbilical area and epigastric area. No rebound. No organomegaly. Extremities: No edema. No clubbing. No cyanosis. Neurological: The patient is alert and oriented x3. No focal neurological deficits. LABORATORY: Sodium 144, potassium 3.8, chloride 107, bicarbonate 28, BUN 6, creatinine 0.5, calcium 8.1. ASSESSMENT AND PLAN: 1. Severe hyponatremia resolved. 2. Mild pancreatitis. She is still complaining of mild epigastric and periumbilical pain, we are going to continue with the same management for now. 3. Constipation. Continue with the same management. 4. Fatty liver disease likely related to alcohol abuse. Patient is on Librium, we will continue with this medication for now. The plan is to wean this patient off medication in the future. 5. Physical deconditioning. This patient has moderate to severe weakness, likely secondary to physical deconditioning and alcohol related myopathy pending placement. turf farm worker on board. cc: Og Cervantes MD
[2016-12-18] MEDS: REMERON PO SCH (21:42)
[2016-12-18] MEDS: ATIVAN IV PRN (21:43)
--- NOTE | 2016-12-19 00:03 | CONSULTATION ---
DATE OF CONSULTATION: 12/18/2016 REFERRING PHYSICIAN: Dr. Og Christianson M.D. PRIMARY CARE PROVIDER: None. INDICATION FOR CONSULTATION: 1. Fecal impaction. 2. Epigastric pain. HISTORY OF PRESENT ILLNESS: The patient is a 61-year-old, white female, who was brought to the emergency room by her family, due to excessive alcohol consumption. The patient states that she has had 5 to 10 days of abdominal pain, that is worse in the epigastrium and left lower quadrant pain. She reports severe constipation for the last week. She notes that she has nausea with only a few episodes of vomiting. In the emergency room, it was discovered, according to the chart, that she drinks between a half a gallon and 1 gallon per day of vodka. She last drank on 12/07/2016. In the emergency room, she was found to have a serum sodium of 114, and elevated lipase to 124, with a normal amylase. During this admission, her hyponatremia has been corrected. Her abdominal pain is improved, but she continues to have left lower quadrant pain, and some mild epigastric pain. A CT scan of the abdomen and pelvis is remarkable for severe constipation with a rectal stool impaction, fatty liver, and pulmonary edema, as well as, flank edema. According to the CT, she has a 6.5 cm rectal stool ball. She also has a history of Hilton-en-Y gastric bypass. We are asked to participate in her care and perform endoscopic evaluation. PAST MEDICAL HISTORY: 1. Depression. 2. Alcohol abuse. 3. Hyponatremia, as noted above. 4. Obesity, status post Hilton-en-Y gastric bypass. 5. Fatty liver. 6. Pulmonary edema. 7. Pleural effusions. PAST SURGICAL HISTORY: Hilton-en-Y gastric bypass. MEDICATION ALLERGIES: None. HOME MEDICATIONS: None. SOCIAL HISTORY: The patient lives with her daughter and grandson. She is drinking 1/2 gallon to 1 gallon per day of vodka. There is no history of tobacco or illicit drug use. REVIEW OF SYSTEMS: Difficult to obtain. The patient repeatedly asked for pain medications without identifying the source of her pain. After some discussion, I was able to determine that she continues to have left middle and left lower quadrant pain, as well as, rectal pressure. She is drinking a GoLYTELY bowel purge, and complains of mild nausea. PHYSICAL EXAMINATION: General: On exam, she is a white female in no acute distress with a very flat affect. vital signs: Her blood pressure is 80/54, pulse of 80, respirations 20, temperature of 97.9. HEENT: Negative for jaundice. Oropharyngeal mucosal membranes are dry. Pulmonary: Lungs are clear to auscultation with normal respiratory effort. There is slight decreased breath sounds in the bases bilaterally. Cardiovascular: She has regular rate and rhythm with a 2 to 3/6 systolic murmur that is present in the left anterior chest wall and radiates into the axilla. Abdominal: She has hypoactive bowel sounds. The abdomen is soft, with tenderness in the epigastrium and the left colic gutter. There is also suprapubic tenderness. Extremities: Bilaterally are remarkable for 2+ edema Neurologic: She is a poor historian, but is alert and oriented. OBJECTIVE DATA: Remarkable for labs obtained, on 12/17/2015. Her hemoglobin was 9.3, with hematocrit of 28.9, and a white count of 3.61. She has 378,000 platelets. On 12/17/2016, her sodium was 144, potassium 3.8, chloride 107, CO2 of 28, BUN 6, creatinine 0.5, with a glucose of 84, and calcium of 8.1. IMPRESSION: 1. Severe constipation. 2. Fecal impaction. 3. Fatty liver. 4. Alcohol abuse. 5. Epigastric pain. 6. Pancreatitis. 7. Hilton-en-Y gastric bypass, based on CT scan. RECOMMENDATION: 1. The patient will need further evaluation from an endoscopic standpoint to assess her abdominal pain, nausea, and other GI symptoms, including change in bowel habits. 2. In order to facilitate performing endoscopy, I would begin with soapsuds enemas tonight and in the morning. In addition, I would administer Dulcolax suppository at bedtime. 3. Continue with the GoLYTELY bowel purge. 4. She will need an EGD and colonoscopy this admission, once were able to clear her bowel. 5. Because of the sedative effect and the effect on the GI tract, I would minimize her pain medications. 6. Continue Carafate 1 g 4 times a day. 7. It is reasonable to continue the omeprazole as you are doing. However, if her nausea persists, I would consider Protonix 40 mg IV q.12 hours. 8. She is currently on Librax 10 mg 3 times a day, which we can continue. If she has no benefit, and her pain continues, I would consider Levsin 0.125 mg sublingual 4 times a day. 9. Additional recommendations to follow based on her clinical course. 10. She will need a full nutritional panel on outpatient evaluation, to assess her nutritional status post gastric bypass. cc: Og Cervantes MD MTDD
[2016-12-19 07:29] LABS: BASO% 0.3 % (0.0-0.8); EOS# 0.04 X1000 (0.0-0.7); EOS% 0.6 % (0.0-10.0); HEMATOCRIT 30.7 % (37.0-47.0); LYMPH# 1.85 X1000 (1.2-3.4); LYMPH% 26.4 % (20.5-51.1); MANUAL DIFF NEEDED? NO; MCH 31.2 PG (27-31); MCHC 32.6 g/dL (33-37); MCV 95.6 FL (81-99); MONO# 0.84 X1000 (0.11-0.59); MPV 8.8 FL (7.4-10.4); NEUT% 60.7 % (42.2-75.2); PLT 473 X1000 (130-400); RBC 3.21 XMIL (4.2-5.4)
[2016-12-19 07:58] LABS: AGAP 10; ALKALINE PHOSPHATASE 164 U/L (32-104); BUN 7 mg/dL (8-22); CHLORIDE 107 mmol/L (98-107); COSMO 280; GOT 27 U/L (10-30); GPT 23 U/L (10-36); POTASSIUM 3.6 mmol/L (3.5-5.1); SODIUM 142 mmol/L (136-145); TCO2 25 mmol/L (25-35); TOTAL BILIRUBIN 0.28 mg/dL (0.20-1.00); TOTAL PROTEIN 4.6 g/dL (6.3-8.3)
[2016-12-19] MEDS: LOVENOX SUBQ SCH (09:17)
[2016-12-19] MEDS: LIBRIUM PO SCH ×2 (09:18→15:43)
[2016-12-19] MEDS: CARAFATE PO SCH ×4 (09:18→19:40)
[2016-12-19] MEDS: MAALOX PLUS LIQUID PO SCH ×3 (09:18→19:40)
[2016-12-19] MEDS: PRILOSEC PO SCH (09:18)
--- NOTE | 2016-12-19 11:01 | PROGRESS NOTE ---
DATE: 12/19/2016 SUBJECTIVE: This patient is resting comfortably on the bed. She is not complaining of belly pain today. I read the records and apparently this patient had a bowel movement yesterday, she has been constipated for the past days and Gastroenterology Department is taking care of this patient. As per GI recommendations, this patient should be scoped during this admission. OBJECTIVE: Vital Signs: Temperature 98.2 degrees, pulse 75, respiratory rate 16, blood pressure 102/53, oxygen saturation 98 on room air. HEENT: Head normocephalic. No trauma. PERRLA. Neck: Supple. No JVD. No masses. Central trachea. Cardiovascular: RRR. No murmurs. Chest: Clear to auscultation. No wheezing. No rales. Abdomen: Soft, mild tenderness to palpation at the level of the periumbilical area and epigastric area. No rebound. No organomegaly. Extremities: There is 3+ lower extremity edema. No clubbing. No cyanosis. Neurological examination: The patient is sleepy, but arousable. She is oriented x3. No focal neurological deficits. LABORATORY: WBC 7, hemoglobin 10, hematocrit 30.7, platelets 473. Sodium 142, potassium 3.6, chloride 107, bicarbonate 25, BUN 7, creatinine 0.4, glucose 80, calcium 8, albumin 2. ASSESSMENT AND PLAN: 1. Severe hyponatremia, resolved. 2. Mild pancreatitis, this patient is feeling better. She is still having mild periumbilical pain. We are going to continue with the same management for now. 3. Constipation. Gastroenterology Department is following this patient. They have been managing her constipation medication, and they have recommended to do an endoscopy during this hospitalization. 4. Fatty liver disease likely related to alcohol abuse. 5. Alcohol abuse. Patient is on Librium; we will continue with this medication for now. The plan is to wean this patient off medication in the future. 6. Physical deconditioning. 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 gospel worker is trying to get rehabilitation center for this patient. 7. Normocytic anemia, related to chronic disease/alcohol abuse. cc: Og Cervantes MD
[2016-12-19] MEDS: NS 1,000 ML IV SCH ×2 (11:54→15:49)
[2016-12-19] MEDS: MORPHINE IV PRN ×2 (11:54→16:27)
[2016-12-19] MEDS: ATIVAN IV PRN (19:39)
[2016-12-19] MEDS: REMERON PO SCH (19:40)
[2016-12-20] MEDS: CARAFATE PO SCH ×5 (02:12→22:47)
[2016-12-20] MEDS: MAALOX PLUS LIQUID PO SCH ×4 (02:12→15:59)
[2016-12-20] MEDS: LIBRIUM PO SCH ×4 (02:13→16:02)
[2016-12-20] MEDS: REMERON PO SCH ×2 (02:13→22:47)
[2016-12-20] MEDS: MORPHINE IV PRN ×5 (05:04→22:53)
--- NOTE | 2016-12-20 06:55 | PROGRESS NOTE ---
DATE: 12/19/2016 SUBJECTIVE: The patient states she continues to have abdominal pain. She notes interval improvement following her soapsuds enemas. The nurse reports a large fecalith causing fecal impaction. She was able to evacuate approximately 40% of it last night before the patient refused to allow her to continue removing the fecal impaction. Today, her abdomen is slightly more tender but she remains distended with left-sided tenderness. OBJECTIVE DATA: Remarkable for a hemoglobin of 10, with a hematocrit of 30.7, and white count 7.01. She has 473,000 platelets. Sodium is 146, potassium 3.6, chloride 107, CO2 of 25, BUN 7, creatinine 0.4, with a glucose of 80. Calcium is 8. Total bilirubin is 0.28, AST 27, ALT 23, alkaline phosphatase 164, total protein 4.6, and albumin 2. RECOMMENDATION: 1. We will administer a soapsuds enema tonight and in the morning. She was also encouraged to resume her GoLYTELY bowel purge. Currently, she has consumed about 50% of the container. 2. I recommend a KUB in the morning. 3. Additional recommendations to follow based on clinical course. cc: MD Og Monreal MD
[2016-12-20 06:59] LABS: MANUAL DIFF NEEDED? NO
[2016-12-20 07:06] LABS: BASO% 0.6 % (0.0-0.8); EOS# 0.08 X1000 (0.0-0.7); EOS% 1.2 % (0.0-10.0); HEMATOCRIT 31.6 % (37.0-47.0); LYMPH% 21.9 % (20.5-51.1); MCH 30.7 PG (27-31); MCHC 31.6 g/dL (33-37); MCV 96.9 FL (81-99); MONO# 0.52 X1000 (0.11-0.59); MONO% 7.6 % (1.7-9.3); MPV 8.8 FL (7.4-10.4); NEUT% 68.7 % (42.2-75.2); PLT 452 X1000 (130-400); RBC 3.26 XMIL (4.2-5.4)
[2016-12-20 07:38] LABS: AGAP 11; BUN 6 mg/dL (8-22); CALCIUM 8.3 mg/dL (8.8-10.2); CHLORIDE 107 mmol/L (98-107); COSMO 280; POTASSIUM 3.3 mmol/L (3.5-5.1); SODIUM 142 mmol/L (136-145); TCO2 24 mmol/L (25-35)
[2016-12-20] MEDS: LOVENOX SUBQ SCH (08:10)
[2016-12-20] MEDS: PRILOSEC PO SCH (08:11)
[2016-12-20] MEDS: NS 1,000 ML IV SCH ×2 (08:12→17:57)
--- NOTE | 2016-12-20 13:04 | Diag Imaging Result Document ---
PROCEDURE NAME: KUB ABDOMEN - 12/20/2016 SUPINE RADIOGRAPH OF THE ABDOMEN AND PELVIS: COMPARISON: None available. FINDINGS: There are nonspecific bowel gas and stool patterns. There is no obstructive pattern. There is no evidence of large-volume free abdominal gas. There is no discrete organomegaly. Metallic clips project over the left side of the abdomen. IMPRESSION: Nonspecific abdomen.
--- NOTE | 2016-12-20 15:03 | PROGRESS NOTE ---
DATE: 12/20/2016 SUBJECTIVE: This patient is resting comfortably on the bed. She is complaining of mild abdominal discomfort. She has been taking GoLYTELY and also she has been getting an enema. We did an abdominal x-ray today that showed nonspecific abdomen, some bowel gas and stool pattern. No obstruction. OBJECTIVE: Vital Signs: Temperature 97.2 degrees, pulse 65, respiratory rate 16, blood pressure 131/67, O2 saturation 96 on room air. HEENT: Head normocephalic. No trauma. PERRLA. Neck: Supple. No JVD. No masses. Central trachea. Chest: Clear to auscultation. No wheezing. No rales. Abdomen: Soft. Mild tenderness to palpation at the level of the epigastric area and periumbilical area. No rebound. No organomegaly. Extremities: 2+ lower extremity edema. No clubbing. No cyanosis. Neurological: The patient is alert. She is oriented x3. Even though she is oriented x3 she started talking about things that I do believe did not happen. Probably this is related to alcohol. LABORATORY: WBC 6.8, hemoglobin 10, hematocrit 31.6, platelets 452,000. Sodium 142, potassium 3.3, chloride 107, bicarbonate 24. BUN 6, creatinine 0.5, glucose 84, calcium 8.3. ASSESSMENT AND PLAN: 1. Severe constipation. Gastroenterology Department is following this patient. Probably this patient needs to be scoped during this hospitalization as per GI. 2. Severe hyponatremia, resolved. 3. Mild pancreatitis. This patient is feeling better. She is still having mild periumbilical pain but she is tolerating p.o. We will continue with the same management for now. 4. Fatty liver disease. Likely related to alcohol abuse. 5. Alcohol abuse. This patient is on Librium. I will continue with this medication for now. The plan is to wean this patient off medication in the future. This patient also is on thiamine p.o. daily and also I will add Centrum to her medications. 6. Physical deconditioning. This patient has a moderate to severe weakness likely secondary to physical deconditioning and alcohol related myopathy. carry in worker is trying to get rehabilitation at a rehabilitation center for this patient. For now, we will continue with physical therapy. 7. Normocytic anemia. Likely related to chronic disease/alcohol abuse. cc: Og Cervantes MD
[2016-12-20] MEDS: NORCO-5 PO PRN ×2 (17:57→23:55)
[2016-12-21] MEDS: MORPHINE IV PRN ×5 (03:40→20:14)
--- NOTE | 2016-12-21 04:42 | PROGRESS NOTE ---
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 She continues to have epigastric pain. She also notes left lower quadrant pain. She has received multiple soapsuds enema with resolution of the fecal impaction. However, she reports that her pain has not resolved. Because of the persistent symptoms, we are asked to perform an EGD and colonoscopy. The patient is receiving GoLYTELY and her stool is nearly clear. We will place the patient on the schedule for tomorrow for EGD and colonoscopy for further evaluation. Additional recommendations will follow based on her endoscopic findings. cc: MD Og Monreal MD
[2016-12-21] MEDS: ATIVAN IV PRN (04:43)
[2016-12-21] MEDS: NORCO-5 PO PRN ×2 (04:43→10:24)
[2016-12-21] MEDS: NS 1,000 ML IV SCH ×4 (06:17→23:18)
[2016-12-21 07:13] LABS: MANUAL DIFF NEEDED? NO
[2016-12-21 07:27] LABS: BASO% 0.6 % (0.0-0.8); EOS# 0.06 X1000 (0.0-0.7); EOS% 1.1 % (0.0-10.0); HEMATOCRIT 28.9 % (37.0-47.0); HEMOGLOBIN 9.2 g/dL (12.0-16.0); LYMPH# 1.44 X1000 (1.2-3.4); LYMPH% 26.5 % (20.5-51.1); MCHC 31.8 g/dL (33-37); MCV 97.3 FL (81-99); MONO# 0.44 X1000 (0.11-0.59); MONO% 8.1 % (1.7-9.3); NEUT% 63.7 % (42.2-75.2); PLT 410 X1000 (130-400); RBC 2.97 XMIL (4.2-5.4)
[2016-12-21 07:41] LABS: AGAP 10; BUN 6 mg/dL (8-22); CALCIUM 7.8 mg/dL (8.8-10.2); CHLORIDE 111 mmol/L (98-107); COSMO 285; POTASSIUM 3.5 mmol/L (3.5-5.1); SODIUM 145 mmol/L (136-145); TCO2 24 mmol/L (25-35)
[2016-12-21] MEDS: PRILOSEC PO SCH (08:42)
[2016-12-21] MEDS: CARAFATE PO SCH ×4 (08:42→20:17)
[2016-12-21] MEDS: MAALOX PLUS LIQUID PO SCH ×3 (08:43→16:22)
[2016-12-21] MEDS: LIBRIUM PO SCH ×3 (08:57→16:22)
[2016-12-21] MEDS: VITAMIN B-1 PO SCH (10:28)
[2016-12-21] MEDS: CENTRUM SILVER PO SCH (10:28)
--- NOTE | 2016-12-21 12:27 | PROGRESS NOTE ---
DATE: 12/21/2016 SUBJECTIVE: This patient is still resting comfortably on the bed. She has a strong past medical history of alcoholism and probably she has dementia related to that. Today, she will go for an EGD and colonoscopy that will be performed by Dr. Martinez. OBJECTIVE: Vital Signs: Temperature 98.1 degrees, pulse 72, respiratory rate 20, blood pressure 115/68, O2 saturation 99 on room air. HEENT: Head normocephalic. No trauma. PERRLA. Neck: Supple. No JVD. No masses. Central trachea. Cardiovascular: RRR. No murmurs. Abdomen: Soft. Tender to palpation at the level of the epigastric area and periumbilical area. Also mild discomfort at the level of the lower abdomen. No signs of peritoneal irritation. Extremities: Two plus lower extremity edema. No clubbing. No cyanosis. Neurological: The patient is alert. She is oriented x2. She is not oriented in time. She has been talking to the nurse and she has been having mood changes, probably related to alcohol. LABORATORY: WBC 5.4, hemoglobin 9.2, hematocrit 28.9, platelets 410,000. Sodium 145, potassium 3.5, chloride 111, bicarbonate 24, BUN 6, creatinine 0.4, glucose 70, calcium 7.8. ASSESSMENT AND PLAN: 1. Severe constipation. Gastroenterology Department is following this patient. She has been having bowel movement secondary to enemas and stool softener. Gastroenterology Department will do an upper endoscopy and colonoscopy today. 2. Severe hyponatremia, resolved. 3. Mild pancreatitis. This patient is feeling better but she is still complaining of periumbilical and epigastric pain. 4. Fatty liver disease. Likely related to alcohol abuse. 5. Alcohol abuse. This patient is on Librium and I will continue with this medication for now. Also, will continue with thiamine and I already added Centrum to her medications. 6. Physical deconditioning. She has a moderate to CV weakness likely secondary to physical deconditioning and also myopathy related to alcohol. This patient should be discharged to a rehab center once she is ready. 7. Normocytic anemia. Likely related to chronic disease and alcohol abuse. cc: Og Cervantes MD
[2016-12-21] MEDS ORDERED: SODIUM CHLORIDE 0.9% INJ PRN (15:56)
[2016-12-21] MEDS ORDERED: PHENERGAN IV PRN (15:56)
[2016-12-21] MEDS ORDERED: DIPRIVAN 1% ONE (15:56)
[2016-12-21] MEDS ORDERED: VERSED ONE (15:57)
[2016-12-21] MEDS ORDERED: LR 1,000 ML ONE (16:17)
[2016-12-21] MEDS ORDERED: XYLOCAINE-MPF 2% ONE (16:17)
[2016-12-21] MEDS: LEVAQUIN 500 MG/D5W 500 MG/100 ML IVPB IV SCH (16:39)
--- NOTE | 2016-12-21 18:31 | OPERATIVE NOTE ---
PROCEDURE DATE: 12/21/2016 REFERRING PHYSICIAN: Og Christianson M.D. PRIMARY CARE PROVIDER: None. INDICATION FOR PROCEDURE: 1. Nausea with vomiting. 2. Epigastric pain. 3. Iron-deficiency anemia. 4. Fecal impaction. 5. Alcohol abuse. PROCEDURE PERFORMED: Esophagogastroduodenoscopy. CONSENT: Informed consent was obtained from the patient prior to the procedure. The risks, benefits, and alternatives were discussed. MEDICATION: The patient received monitored anesthesia care. PERFORMING PHYSICIAN: Peyton Martinez M.D. ASSISTANTS: 1. MIKE Judge. 2. Melba Damon RN. 3. Erik Waters CRNA. 4. Timbo Jacobs M.D. (anesthesia). COMPLICATIONS: There were no complications. ESTIMATED BLOOD LOSS: None. SPECIMENS REMOVED: None. FINDINGS: After sedation was achieved, the upper endoscope was inserted to 70 cm in the efferent jejunal limb. The hypopharynx appeared endoscopically normal. The tubular esophagus was normal to approximately 34 cm. In the distal esophagus at the GE junction, there was a single ulcer that was whitish base and superficial in appearance with no stigmata of bleeding. The lumen was widely patent. The GE junction was measured at 35 cm from the incisors and it appeared otherwise normal. The patient has surgical changes consistent with a Hilton-en-Y gastric bypass. The gastric pouch spanned from 35-40 cm. In the gastric pouch, there was a whitish base superficial ulcer with no stigmata of bleeding. The anastomosis appeared grossly normal. There were 2 alida visible in the suture line. We were unable to intubate the afferent jejunal limb. The efferent jejunal limb appeared grossly normal. However, there were bilious secretions with bile staining to the gastric pouch. After the exam was complete, the lumen was decompressed and the scope was removed without incident. IMPRESSION: 1. Distal esophageal ulcer. 2. Hilton-en-Y gastric bypass. 3. Gastritis. 4. Gastric ulcer in the gastric pouch. 5. Bile staining of the efferent jejunal limb. 6. Unable to identify the afferent jejunal limb. RECOMMENDATION: 1. Continue omeprazole 40 mg p.o. daily. 2. Continue Carafate 1 g p.o. 4 times a day. 3. Please obtain a small-bowel follow-through to assess her anatomy. She may require a referral back to her bariatric surgeon. 4. Additional recommendations to follow based on her clinical course. cc: MD Og Monreal MD MTDD
--- NOTE | 2016-12-21 18:34 | OPERATIVE NOTE ---
PROCEDURE DATE: 12/21/2016 REFERRING PHYSICIAN: Og Christianson M.D. INDICATION FOR PROCEDURE: 1. Fecal impaction. 2. Left lower quadrant pain. 3. Iron deficiency anemia. PROCEDURE PERFORMED: Colonoscopy, incomplete with biopsy. CONSENT: Informed consent was obtained from the patient prior to the procedure. The risks, benefits, and alternatives were discussed. MEDICATION: The patient received monitored anesthesia care. PERFORMING PHYSICIAN: Peyton Martinez M.D. ASSISTANTS: 1. MIKE Judge. 2. Melba Damon RN. 3. Erik Waters CRNA. 4. Timbo Jacobs M.D. (anesthesia). COMPLICATIONS: There were no complications. ESTIMATED BLOOD LOSS: Less than 1 mL. SPECIMENS REMOVED: Rectal biopsies. FINDINGS: After the EGD was performed the patient was repositioned. Pediatric colonoscope was inserted to 30 cm. There was copious amounts of fecal residue, bowel wall edema and scattered ulcerations that prevented advancement of the scope. Upon withdrawal there was bowel wall edema, scattered aphthous superficial ulcers particularly in the rectum consistent with acute colitis. Rectal biopsies were taken. The lumen was decompressed and the scope was removed without incident. It should be noted that on the patient's buttocks there is deep bruising suggestive of early decubitus ulcer or pressure sore. IMPRESSION: 1. Acute colitis. 2. Proctitis. 3. Pressure ulcers on the buttocks bilaterally. RECOMMENDATION: 1. Await biopsy results. 2. Begin Levaquin 500 mg IV q.24 hours and Flagyl 250 IV q.6 hours. I would continue the antibiotic course for full 10 day course. 3. She will need a repeat colonoscopy as an outpatient with a 2-day bowel prep. 4. Please see the EGD report for additional details. 5. She should return to clinic 4-6 weeks post discharge. 6. Additional recommendations to follow based on her clinical course. cc: Og Cervantes MD [facility]
[2016-12-21] MEDS: FLAGYL 250 MG/NS 250 MG/50 ML IVPB IV SCH ×2 (18:51→23:16)
[2016-12-21] MEDS: REMERON PO SCH (20:17)
[2016-12-22] MEDS: MORPHINE IV PRN ×4 (01:09→16:24)
[2016-12-22] MEDS: MAALOX PLUS LIQUID PO SCH ×4 (01:10→17:22)
[2016-12-22] MEDS: NS 1,000 ML IV SCH ×2 (01:15→13:19)
[2016-12-22] MEDS: NORCO-5 PO PRN ×2 (02:07→14:59)
[2016-12-22] MEDS: ATIVAN IV PRN ×3 (02:56→17:18)
[2016-12-22] MEDS: FLAGYL 250 MG/NS 250 MG/50 ML IVPB IV SCH ×4 (04:49→22:01)
[2016-12-22 07:23] LABS: MANUAL DIFF NEEDED? NO
[2016-12-22 07:24] LABS: BASO% 0.7 % (0.0-0.8); EOS# 0.06 X1000 (0.0-0.7); EOS% 1.3 % (0.0-10.0); HEMATOCRIT 30.7 % (37.0-47.0); HEMOGLOBIN 9.7 g/dL (12.0-16.0); LYMPH# 1.51 X1000 (1.2-3.4); MCH 31.4 PG (27-31); MCHC 31.6 g/dL (33-37); MCV 99.4 FL (81-99); MONO# 0.46 X1000 (0.11-0.59); MPV 9.2 FL (7.4-10.4); PLT 397 X1000 (130-400); RBC 3.09 XMIL (4.2-5.4)
[2016-12-22 07:42] LABS: AGAP 11; BUN 5 mg/dL (8-22); CHLORIDE 112 mmol/L (98-107); COSMO 282; POTASSIUM 3.9 mmol/L (3.5-5.1); SODIUM 144 mmol/L (136-145); TCO2 21 mmol/L (25-35)
[2016-12-22 09:44] LABS: IRON SATURATION 25 %; TIBC 163 ug/dL; TOTAL IRON 41 ug/dL (49-151); UNBOUND IRON 122 ug/dL (112-346)
[2016-12-22] MEDS: CENTRUM SILVER PO SCH (13:14)
[2016-12-22] MEDS: VITAMIN B-1 PO SCH (13:14)
[2016-12-22] MEDS: PRILOSEC PO SCH (13:14)
[2016-12-22] MEDS: CARAFATE PO SCH ×4 (13:20→22:01)
[2016-12-22] MEDS: LIBRIUM PO SCH ×3 (13:20→17:23)
[2016-12-22] MEDS ORDERED: LASIX IV ONE (14:47)
[2016-12-22] MEDS ORDERED: VENOFER 200 MG in NS 100 ML IV ONE (14:48)
--- NOTE | 2016-12-22 15:25 | PROGRESS NOTE ---
DATE: 12/22/2016 SUBJECTIVE: Patient was lying in bed in the bed comfortably. On questioning she did complain of abdominal pain. She points were the left side of the abdomen. Did not complain of any nausea or vomiting. She is tolerating her diet well. She tells me she has had bowel movement after receiving enemas but has not had a bowel movement today. OBJECTIVE: Vitals: Temperature 98 degrees Fahrenheit, pulse 71 per minute, breathing 16, blood pressure was 118/77. Abdomen: Full, soft. It is mildly tender in left lower quadrant area. No rebound tenderness or guarding noted. Bowel sounds are audible. Extremities: She has got pitting edema bilateral lower extremity. IMPRESSION: Esophageal ulcer, acute colitis and proctitis status post gastric bypass surgery. She is already on medication. She is on proton pump inhibitor and antibiotic. I would continue the same with no new suggestion. However I recommended her to continue MiraLAX to help her bowel movements. I will follow as needed. Dr. Martinez will be available to pick her back up on Saturday. cc: Aldo Shah MD
[2016-12-22] MEDS: FOLIC ACID PO SCH ×2 (15:27→22:00)
[2016-12-22] MEDS: VITAMIN D PO SCH (15:28)
--- NOTE | 2016-12-22 15:35 | PROGRESS NOTE ---
DATE: 12/22/2016 Today Ms. Torres referred to be doing fine. According to her, she is not getting a lot of attention from the nursing staff, but otherwise she is okay. OBJECTIVE: Vital signs: Blood pressure is 118/77, pulse of 71, respirations 18, temperature 98.0 degrees. General: Ms. Freeman is a 61-year-old female. She looks older than her age. Mucous is pink and moist. Anicteric. Acyanotic. Neck: Supple. Chest: Good air entry bilaterally. No crepitations. No rhonchi. Cardiovascular: Regular rate and rhythm. Abdomen: Soft. Bowel sounds are slightly reduced. Extremities: About 3+ pedal edema which extends all the way to her thighs and lateral aspect of her gluteus. ASSESSMENT: 1. Ethanol abuse on presentation. 2. Gastritis/gastric ulcer in the gastric pouch and also distal esophageal ulcer on EGD. 3. Acute colitis suspicious for ischemic. As per Dr. Martinez's colonoscopy note, we are going to continue with the current IV antibiotics. 4. Iron deficiency anemia. We will give the patient a dose of IV iron. 5. Vitamin D deficiency as well as folate deficiency. I think this is all related to her alcohol related nutritional deficiencies. 6. Hyponatremia, secondary to beer potomania. This is resolved. 7. Fluid overload. We are going to discontinue the IV fluids today and give the patient a dose of Lasix 60 mg and continue observing her fluid status. cc: Vidal Rosales MD
[2016-12-22 16:42] LABS: URINE CULTURE NEEDED? NO; URINE MICRO REVIEW NEEDED? NO; URINE SOURCE CATH
[2016-12-22 16:47] LABS: BILIRUBIN URINE NEGATIVE (NEGATIVE); BLOOD URINE NEGATIVE (NEGATIVE); COLOR STRAW; GLUCOSE URINE NEGATIVE (NEGATIVE); LEUKOCYTES URINE NEGATIVE (NEGATIVE); NITRITE URINE NEGATIVE (NEGATIVE); PH URINE 7.5; PROTEIN URINE NEGATIVE (NEGATIVE); SP GRAVITY URINE 1.003; TURBIDITY URINE CLEAR (CLEAR); UROBILINOGEN URINE NORMAL (NORMAL)
[2016-12-22 16:48] LABS: UR EPITHELIAL CELLS <10 /HPF (<10); URINE BACTERIA NEGATIVE /HPF; URINE RBC <10 /HPF (<10); URINE WBC <10 /HPF (<10)
[2016-12-22] MEDS: LEVAQUIN 500 MG/D5W 500 MG/100 ML IVPB IV SCH (17:21)
[2016-12-22] MEDS ORDERED: LACTULOSE PO PRN (18:33)
[2016-12-22] MEDS: REMERON PO SCH (22:00)
[2016-12-22] MEDS: BENTYL IM PRN (23:00)
[2016-12-23] MEDS: FLAGYL 250 MG/NS 250 MG/50 ML IVPB IV SCH ×4 (04:00→21:03)
[2016-12-23 07:25] LABS: MANUAL DIFF NEEDED? NO
[2016-12-23 07:39] LABS: HEMOGLOBIN 8.6 g/dL (12.0-16.0); MCHC 31.9 g/dL (33-37); MCV 97.5 FL (81-99); RBC 2.77 XMIL (4.2-5.4)
[2016-12-23 07:40] LABS: BASO% 0.5 % (0.0-0.8); EOS# 0.07 X1000 (0.0-0.7); EOS% 1.8 % (0.0-10.0); LYMPH# 0.82 X1000 (1.2-3.4); LYMPH% 20.6 % (20.5-51.1); MONO# 0.28 X1000 (0.11-0.59); MPV 9.1 FL (7.4-10.4); NEUT% 70.1 % (42.2-75.2); PLT 356 X1000 (130-400)
[2016-12-23 08:00] LABS: AGAP 9; BUN 4 mg/dL (8-22); CALCIUM 7.9 mg/dL (8.8-10.2); CHLORIDE 107 mmol/L (98-107); COSMO 277; MAGNESIUM 1.8 mg/dL (1.5-2.7); POTASSIUM 3.6 mmol/L (3.5-5.1); SODIUM 141 mmol/L (136-145); TCO2 25 mmol/L (25-35)
[2016-12-23] MEDS: CARAFATE PO SCH ×4 (15:00→21:00)
[2016-12-23] MEDS: PRILOSEC PO SCH (15:01)
[2016-12-23] MEDS: CENTRUM SILVER PO SCH (15:02)
[2016-12-23] MEDS: VITAMIN D PO SCH (15:03)
[2016-12-23] MEDS: VITAMIN B-1 PO SCH (15:04)
[2016-12-23] MEDS: FOLIC ACID PO SCH ×2 (15:04→21:00)
[2016-12-23] MEDS: MAALOX PLUS LIQUID PO SCH ×3 (15:04→17:01)
[2016-12-23] MEDS: LIBRIUM PO SCH ×3 (15:09→22:27)
[2016-12-23] MEDS: LASIX IV SCH ×2 (15:09→20:59)
[2016-12-23] MEDS: ATIVAN IV PRN ×2 (15:09→21:16)
[2016-12-23] MEDS: LEVAQUIN 500 MG/D5W 500 MG/100 ML IVPB IV SCH (17:01)
[2016-12-23] MEDS: BENTYL IM PRN (17:09)
--- NOTE | 2016-12-23 18:39 | PROGRESS NOTE ---
DATE: 12/23/2016 SUBJECTIVE: Today Ms. Freeman referred to be doing fine. Denies any complaints. Vital signs: Blood pressure is 125/74, pulse of 74, respiration 16, temperature is 98.4 degrees. General: Ms. Freeman 61-year-old female. She is in bed, no distress. HEENT: Mucosa is pink and moist. Anicteric. Acyanotic. Neck: Supple. Chest: Was clear. Cardiovascular: Regular rate and rhythm. Abdomen: Soft, nontender. Extremities: About 2+ pedal edema. CONTRACTS ADVISOR: Patient is alert, follows commands. LABORATORY DATA: WBC 3.98, hemoglobin is 8.6, platelet count of 256,000. Chemistries reviewed. Completely normal. Vitamin D level is 5.1, remarkably low. ASSESSMENT: 1. Ethanol abuse on presentation. 2. Gastritis/gastric ulcer in the gastric pouch and also esophageal ulcer on EGD. 3. Acute colitis/proctitis. Etiology is unclear. The patient really did not get a very good colonoscopy because of poor preparation. I assumed this is probably related to severe constipation. Patient is currently on IV antibiotics as per Dr. Martinez. 4. Iron deficiency anemia. The patient was given a dose of IV iron and will continue with p.o. 5. Vitamin D and folate deficiencies. I think this is related to her underlying ethanol abuse. We will continue to replace this. 6. Hyponatremia secondary to beer potomania noted. 7. Currently fluid overload. Patient has 3+ pedal edema extending all the way to her thighs and her buttocks. We will therefore schedule her on b.i.d. Lasix 20 mg. Patient has a Ortiz catheter. Will monitor strict I's and O's. 8. Constipation has improved. cc: Viadl Rosales MD
[2016-12-23] MEDS: REMERON PO SCH (20:59)
[2016-12-24] MEDS: ATIVAN IV PRN ×2 (01:17→04:25)
[2016-12-24] MEDS: FLAGYL 250 MG/NS 250 MG/50 ML IVPB IV SCH ×2 (03:38→10:40)
[2016-12-24] MEDS: BENTYL IM PRN (04:01)
[2016-12-24] MEDS: MAALOX PLUS LIQUID PO SCH ×3 (04:59→13:01)
[2016-12-24] MEDS: LASIX IV SCH (09:14)
[2016-12-24] MEDS: LOVENOX SUBQ SCH (09:14)
[2016-12-24] MEDS: PRILOSEC PO SCH (09:22)
[2016-12-24] MEDS: VITAMIN B-1 PO SCH (09:23)
[2016-12-24] MEDS: CARAFATE PO SCH ×2 (09:23→13:01)
[2016-12-24] MEDS: CENTRUM SILVER PO SCH (09:23)
[2016-12-24] MEDS: FOLIC ACID PO SCH (09:24)
[2016-12-24] MEDS: VITAMIN D PO SCH (09:24)
--- NOTE | 2016-12-24 10:13 | Diag Imaging Result Document ---
PROCEDURE NAME: SMALL BOWEL SERIES ONLY - 12/24/2016 SMALL BOWEL EXAMINATION: 12/24/2016. COMPARISON: 12/20/2016, 12/10/2016. FINDINGS: The gastric remnant is normal. The draining Hilton limb is normal. The small bowel is all normal. Visualized portions of the colon are normal. IMPRESSION: No acute disease or complication.
[2016-12-24] MEDS: LIBRIUM PO SCH (10:39)
[2016-12-24 12:31] VITALS: BP 143/93
[2016-12-24] MEDS ORDERED: FLAGYL PO SCH (19:00)
[2016-12-24] MEDS ORDERED: COLACE PO SCH (21:00)
[2016-12-24] MEDS ORDERED: LASIX PO SCH (21:00)
[2016-12-25] MEDS ORDERED: LEVAQUIN PO SCH (09:00)
[2016-12-25] MEDS ORDERED: ALDACTONE PO SCH (09:00)
--- NOTE | 2016-12-25 13:14 | DISCHARGE SUMMARY ---
ADMISSION DATE: 12/09/2016 DISCHARGE DATE: 12/24/2016 PERTINENT PROCEDURES: 1. Abdomen and pelvis CT showed a small amount of pneumomediastinum of uncertain etiology. No evidence of pancreatitis. Gastric bypass and cholecystectomy. Severe fatty infiltration of the liver. Questionable mild pyelonephritis. Tiny hiatal hernia. 2. Echocardiogram showing mild mitral regurgitation, hyperdynamic left ventricle with an estimated EF of 75%. 3. Abdomen and pelvis CT showed constipation and rectal stool impaction, hepatic steatosis, pulmonary edema, pleural effusions, and flank edema. 4. Abdominal x-ray: Nonspecific. 5. EGD and colonoscopy performed by Dr. Martinez. 6. Small bowel x-ray showed no acute disease or complications. DISCHARGE DIAGNOSES: 1. Alcohol abuse on presentation. Patient was referred to [facility], who denied the patient for long-term placement. Patient also spoke with [facility]. She has also been referred to [facility] facilities for her alcoholism. Patient does know that she is to call to set these appointments up. Being discharged home on Librium and supplemental vitamins. Daily alcohol cessation has been discussed. 2. Gastritis, gastric ulcers in the gastric pouch, esophageal ulcer on EGD. Continue with PPI. 3. Acute colitis, proctitis of unclear in etiology. The patient did not get a very good colonoscopy because of poor prep. The patient will continue on p.o. antibiotics. 4. Iron-deficiency anemia. Patient was given doses of IV Venofer and continued with p.o. 5. Vitamin D and folate deficiencies. Continue with supplementation secondary to alcohol abuse. 6. Hyponatremia secondary to beer potomania noted. 7. Fluid volume overload. Improved. Continue with Lasix. 8. Constipation. Improved. HOSPITAL COURSE: Briefly, Ms. Freeman is a 61-year-old female who has a past medical history of depression and alcohol abuse, who was brought to the ED after family called due to concern for the patient's alcohol consumption. Patient reported 5-10 days of abdominal pain in the epigastric area that was getting worse. She was also feeling sick, but she had not vomited. She reported drinking between half a gallon and a gallon of vodka daily. Her last drink was 2 days ago. In the ED, the patient was found to have a sodium of 114 as well as elevated liver enzymes with an elevated lipase. Patient was admitted to the hospital for severe hyponatremia and acute alcoholic pancreatitis. She underwent a CT of the abdomen that did show a fatty liver, but did not show any pancreatitis, per the CT. She was continued to be n.p.o. as well as started on IV fluids and watched for alcohol withdrawal, given p.r.n. medications as well as started on Librium. [employer] was brought in early on the case because apparently, according to the daughter, the mom is not very mobile at home. For her to be able to drink her alcohol, which is poured by her daughter, she pours it in a cup and the patient drinks it out of a straw. Of note, the daughter is also an alcoholic. Dr. Phelps was consulted in reference to the patient's severe hyponatremia that resolved with a small dose of 3% saline bolus, continued on normal saline with serial laboratories. Patient has several days complaining of epigastric pain. Dr. Martinez with GI was consulted. Patient underwent an EGD and colonoscopy, where she was found to have gastritis, gastric ulcer in the gastric pouch and also esophageal ulcer and a poor prep on her colonoscopy. She was found have acute colitis and proctitis. She was started on Levaquin as well as Flagyl. The patient also underwent a small-bowel x-ray that did not show any acute disease or complication. While patient was in our service, she would refuse to work with Physical Therapy. She was very verbally abusive to nursing staff. Again, Furnace Process Plant Operator was involved. She was turned down for [facility]. Patient did speak with [facility] and they offered outpatient treatment with [facility] facilities. Information was given to them, and it is her responsibility to contact the facility of her choice and to follow up. The patient is being discharged home today with her daughter. VITAL SIGNS: At time of her discharge, temperature 98.2 degrees, heart rate 71, respirations 20, blood pressure 143/93, and O2 is 100% on room air. DISCHARGE DIET: Regular with Ensure. DISCHARGE MEDICATIONS: 1. Librium 10 mg p.o. t.i.d. 2. Vitamin D3, 1000 units p.o. daily. 3. Colace 100 mg p.o. b.i.d. 4. Folic acid 1 mg p.o. b.i.d. 5. Lasix 20 mg p.o. b.i.d. 6. Levaquin 250 mg p.o. daily. 7. Flagyl 250 mg p.o. q.8 hours. 8. Centrum Silver 1 each p.o. daily. 9. Aldactone 25 mg p.o. daily. 10. Carafate 1 g p.o. 4 times a day. 11. Vitamin B1, 100 mg p.o. daily. FOLLOWUP: The patient is being discharged home. She will need to follow up with her primary care physician in 1 week. She will also need to follow up with Dr. Martinez for a repeat colonoscopy. The patient is receiving a wheelchair with [facility] out of [place]. This was set up by [employer]. Patient has been instructed to take all her medications as prescribed as well as a daily alcohol abstinence. Patient can return to the ED for any worsening of symptoms. DISCHARGE TIME: Greater than 30 minutes. Dictated by MEHRDAD Betancourt for Vidal Rosales MD cc: Vidal Rosales MD
== END 2016-12-24 13:48 | disposition home or self-care (01) ==
LOC: ED 23:48 → SUATTDRO 23:49 → ICU 12-10 03:32 → 3N 12-11 09:38
PROVIDERS: ATTEND Internal Medicine

== ENCOUNTER 2017-02-26 22:00 | Inpatient (IN) ==
[2017-02-26] MEDS ORDERED: M.V.I.-12 10 ML, FOLIC ACID 1 MG, MAGNESIUM SULFATE 1 GM, THIAMINE 100 MG in NS 1,000 ML IV ONE (22:04)
[2017-02-26 22:54] LABS: BE 9.4 mmoll (-3.0-3.0); BLOOD TYPE ARTERIAL; DRAW SITE R BRACHIAL; METHB 0.2 % (0.0-1.5); PCO2(98.6) 37 mmHg (35-45); PO2(98.6) 95 mmHg (60-100); SAMPLE BLOOD; SAO2 99.2 % (95.0-100.0); THB 9.4 g/dL (11.5-17.4); pH(98.6) 7.55 (7.35-7.45)
[2017-02-26 23:09] LABS: ALLEN TEST NO; MODALITY ROOM AIR
--- NOTE | 2017-02-26 23:12 | EKG Report ---
Test Performed on : 02/26/2017 10:25:35 PM Test Reason : AMS Blood Pressure : / mmHG Vent. Rate : 089 BPM Atrial Rate : 277 BPM P-R Int : 170 ms QRS Dur : 068 ms QT Int : 428 ms P-R-T Axes : 046 052 040 degrees QTc Int : 520 ms Undetermined rhythm T wave abnormality, consider inferior ischemia Abnormal ECG No previous ECGs available Unconfirmed Result
[2017-02-26 23:35] LABS: UR AMPHETAMINES QUAL NONE DETECTED (NONE DETECT); UR BARBITUATES QUAL NONE DETECTED (NONE DETECT); UR BENZODIAZEPIN QUAL PRESUMPTIVE POSITIVE (NONE DETECT); UR CANNABINOIDS QUAL NONE DETECTED (NONE DETECT); UR COCAINE QUAL NONE DETECTED (NONE DETECT); UR MDMA QUAL NONE DETECTED (NONE DETECT); UR METHADONE QUAL NONE DETECTED (NONE DETECT); UR METHAMPHETAMINE QUAL NONE DETECTED (NONE DETECT); UR OPIATES QUAL NONE DETECTED (NONE DETECT); UR OXYCODONE QUAL NONE DETECTED (NONE DETECT); UR PCP QUAL NONE DETECTED (NONE DETECT); UR TCA QUAL NONE DETECTED (NONE DETECT)
[2017-02-26 23:36] LABS: BASO% 0.1 % (0.0-0.8); EOS# 0.02 X1000 (0.0-0.7); EOS% 0.2 % (0.0-10.0); HEMATOCRIT 29.4 % (37.0-47.0); HEMOGLOBIN 9.4 g/dL (12.0-16.0); IMM GRAN# 0.04 X1000 (0.0-0.04); IMM GRAN% 0.4 % (0.0-0.5); LYMPH# 0.39 X1000 (1.2-3.4); LYMPH% 3.5 % (20.5-51.1); MANUAL DIFF NEEDED? NO; MCH 32.3 PG (27-31); MONO# 0.55 X1000 (0.11-0.59); MONO% 4.9 % (1.7-9.3); MPV 9.8 FL (7.4-10.4); NEUT% 90.9 % (42.2-75.2); PLT 186 X1000 (130-400); RBC 2.91 XMIL (4.2-5.4)
[2017-02-26 23:38] LABS: ALBUMIN 2.9 g/dL (3.5-5.0); POTASSIUM 2.8 mmol/L (3.5-5.1); TOTAL BILIRUBIN 1.9 mg/dL (0.20-1.00); TOTAL PROTEIN 4.9 g/dL (6.3-8.3)
[2017-02-26 23:42] LABS: BILIRUBIN URINE 2+ (NEGATIVE); BLOOD URINE 2+ (NEGATIVE); CLARITY CLEAR (CLEAR); COLOR YELLOW; LEUKOCYTES URINE TRACE (NEGATIVE); NITRITE URINE NEGATIVE (NEGATIVE); PH URINE 6.5; PROTEIN URINE 1+(30 mg/dL) mg/dL (NEGATIVE); UROBILINOGEN URINE 4+(12 mg/dL)
[2017-02-26 23:50] LABS: URINE CULTURE PL NEEDED? YES; URINE EPITHELIAL CELLS <10 /HPF (<10); URINE SOURCE CATH; URINE WBC <10 /HPF (<10)
[2017-02-26 23:58] LABS: INR 1.14 (0.86-1.15); PROTIME 14.9 Seconds (12.1-15.5)
[2017-02-26 23:59] LABS: CK INDEX 1.6 (0.0-2.5); CK-MB 14.69 ng/mL (0.0-5.0); PTT PL 27.1 Seconds (22.6-43.9)
[2017-02-27] MEDS ORDERED: NS 1,000 ML IV ONE (00:24)
--- NOTE | 2017-02-27 00:26 | PROVIDER DOCUMENTATION ---
This chart was entered by Karena Hicks Scribe, acting as scribe for Lam Garcia MD. HPI-General Adult - General Stated Complaint: unresponsive Time Seen by Provider: 02/26/17 22:05 Source: EMS Unable to obtain history due to:: altered Allergies/Adverse Reactions: Patient Allergies Allergy/AdvReac Type Severity Reaction Status Date / Time No Known Allergies Allergy Verified 12/10/16 00:25 Home Medications: Home Medication List Medication Instructions Recorded Confirmed Last Taken Type Chlordiazepoxide [Librium] 10 mg PO TID #30 capsule 12/24/16 Unknown Rx Cholecalciferol (Vit D3) [Vitamin 1,000 unit PO DAILY #60 tablet 12/24/16 Unknown Rx D3] Docusate Sodium [Colace] 100 mg PO BID #60 capsule 12/24/16 Unknown Rx Folic Acid 1 mg PO BID #60 tablet 12/24/16 Unknown Rx Furosemide [Lasix] 20 mg PO BID #60 tablet 12/24/16 Unknown Rx Levofloxacin [Levaquin] 250 mg PO DAILY #10 tablet 12/24/16 Unknown Rx Metronidazole [Flagyl] 250 mg PO Q8HR #30 tablet 12/24/16 Unknown Rx Multivitamins/Minerals [Centrum 1 each PO DAILY #60 tablet 12/24/16 Unknown Rx Silver] Spironolactone [Aldactone] 25 mg PO DAILY #30 tablet 12/24/16 Unknown Rx Sucralfate [Carafate] 1 gm PO 4XDAY #60 tablet 12/24/16 Unknown Rx Thiamine [Vitamin B-1] 100 mg PO DAILY #60 tablet 12/24/16 Unknown Rx - History of Present Illness -Gen Adult Nature of Presenting Problems: 61 Y/O F presents to ED with AMS. Pt was found by police, on a well check which was called in by her daughter who hadn't heard from her in a week. EMS states that the pt was found laying on the floor covered in vomit and urine. Pt lives alone and is alert, able to answer her name and birthday. Location of Pain/Injury: reports: generalized Severity: reports: severe Onset/Duration: reports: 1 week ago Timing: reports: still present Review of Systems - Adult - REVIEW OF SYSTEMS - ADULT ROS:: limited per condition (AMS) Constitutional: denies: fever Past History - Adult - PAST MEDICAL HISTORY-ADULT Review of Records: reports: Old Records Reviewed, Nursing Assessment Review, Medications Reviewed, Social history reviewed & non-contributory. Psychiatric: reports: depression - PRIOR SURGERIES/PROCEDURES Surgical/Procedure History: reports: none - IMMUNIZATION STATUS Childhood Immunizations: See Nurse Assessment Flu Vaccine: See Nurse Assessment Physical Exam-General - CONSTITUTIONAL General Appearance: moderate distress. negative: appears well, alert - EYES Eyes: pale conjunctivae - HEAD, EARS, NOSE, MOUTH & THROAT HENMT: other (bruising rt side of eye and left cheeck) - RESPIRATORY Respiratory: lungs clear, normal breath sounds - GASTROINTESTINAL (ABDOMEN) Abdominal Exam: non tender, soft - MUSCULOSKELETAL Extremity: other (arms bruised) - SKIN Integumentary: normal turgor - PSYCHIATRIC Psych/Mental Status: depressed affect Progress - PLAN OF CARE/RESULTS Progress/Plan/Lab Results: Orders Category Date Time Status Cardiac Monitoring DIRECTED Care 02/26/17 22:03 Active Saline Loc NOW Care 02/26/17 22:03 Active CHEST-PORTABLE [RAD] Stat Exams 02/26/17 22:03 Ordered HEAD W/O CONTRAST [CT] Stat Exams 02/26/17 22:03 Ordered ABG [RESP] Stat Lab 02/26/17 22:03 Ordered ALCOHOL BLOOD Stat Lab 02/26/17 22:03 Ordered CBC WITH ELECTRONIC DIFF [HEME] Stat Lab 02/26/17 22:03 Ordered CK PROFILE [SP CHEM] Stat Lab 02/26/17 22:03 Ordered COMPREHENSIVE METABOLIC PANEL [CHEM] Stat Lab 02/26/17 22:03 Ordered FOLATE Stat Lab 02/26/17 22:04 Ordered LACTATE, PLASMA [CHEM] Stat Lab 02/26/17 22:03 Or[address]IME WITH INR PL [COAG] Stat Lab 02/26/17 22:[address] [COAG] Stat Lab 02/26/17 22:03 Ordered TROPONIN T Stat Lab 02/26/17 22:[address] W/POSS RFLX CULT [URINALYSIS] Stat Lab 02/26/17 22:03 Uncollected URINE DRUG SCREEN PL Stat Lab 02/26/17 22:03 Uncollected VITAMIN B12 Stat Lab 02/26/17 22:04 Ordered Banana Bag X1 Bag Over 1 Hour Med 02/26/17 22:04 Ordered Mvi [M.v.i.-12] 10 ml Folic Acid 1 mg Magnesium Sulfate 1 gm Thiamine 100 mg 0.9% Sodium Chloride Inj [Ns] 1,000 ml IV NOW Pulse Oximetry Stat Oth 02/26/17 22:03 Active EKG [EKG] Stat Ther 02/26/17 22:03 Ordered Result Diagrams: 02/26/17 22:50 02/26/17 22:50 - EKG 1 Time of EKG reading by physician:: 22:25 EKG Read and Signed by:: Lam Garcia EKG Interpretation (*Must complete 3 of following elements*): Normal Rate: 89 Rhythm: NSR Comments: Abnormal ECG, T wave abnormality consider inferior ischemia Departure - Departure Date of Disposition Decision: 02/27/17 Time of Disposition Decision: 00:21 DIAGNOSIS: Hypernatremia, Dehydration Altered mental status Qualifiers: Altered mental status type: stupor Qualified Code(s): R40.1 - Stupor Disposition: ADMITTED INPATIENT 09 Certified Medical Emergency: Emergent Condition: Serious - Critical Care Note This patient required my direct & personal management of CC.: No This chart was documented by the indicated scribe, (Karena Hicks Scribe) and accurately reflects the services I performed and decisions made by me, Lam Garcia MD, as attested by the provider's signature.
--- NOTE | 2017-02-27 05:59 | Diag Imaging Result Doc PS360 ---
EXAM: CHEST-1 VIEW HISTORY: AMS TECHNIQUE: AP structure COMPARISON: 11/10/2016 FINDINGS: The lungs are well expanded. The heart is not enlarged. The vessels are not distended. There are no infiltrates. No effusion identified. IMPRESSION: Negative exam.. Electronically signed by Jm Brink 02/27/2017 5:57 AM
--- NOTE | 2017-02-27 06:27 | Diag Imaging Result Doc PS360 ---
EXAM: HEAD W/O CONTRAST HISTORY: AMS TECHNIQUE: Dose reduction protocol COMPARISON: 11/10/2016 FINDINGS: No parenchymal hemorrhage. No epidural or subdural hematoma. No subarachnoid hemorrhage. No mass identified on this noncontrasted exam. No hydrocephalus. There is diffuse atrophy. No sinus opacification. IMPRESSION: Mild atrophy. No hemorrhage. A preliminary report was given at 11:38 PM Electronically signed by Jm Brink 02/27/2017 6:25 AM
[2017-02-27 08:03] LABS: HEMATOCRIT 27.3 % (37.0-47.0); HEMOGLOBIN 8.5 g/dL (12.0-16.0); MCHC 31.1 g/dL (33-37); MCV 102.6 FL (81-99); RBC 2.66 XMIL (4.2-5.4)
[2017-02-27] MEDS ORDERED: NS 1,000 ML IV SCH ×2 (08:06→08:30)
[2017-02-27 08:11] LABS: AGAP 13; ALBUMIN 2.6 g/dL (3.5-5.0); ALKALINE PHOSPHATASE 140 U/L (32-104); BUN 43 mg/dL (8-22); CALCIUM 8.6 mg/dL (8.8-10.2); CHLORIDE 113 mmol/L (98-107); COSMO 316; GOT 45 U/L (10-30); GPT 41 U/L (10-36); SODIUM 154 mmol/L (136-145); TCO2 28 mmol/L (25-35); TOTAL PROTEIN 4.3 g/dL (6.3-8.3)
[2017-02-27 08:12] LABS: POTASSIUM 2.4 mmol/L (3.5-5.1)
[2017-02-27] MEDS: POTASSIUM CHLORIDE 20 MEQ/SWI 20 MEQ/100 ML IVPB IV SCH ×2 (08:53→12:05)
[2017-02-27] MEDS ORDERED: M.V.I.-12 10 ML, FOLIC ACID 1 MG, MAGNESIUM SULFATE 1 GM, THIAMINE 100 MG in NS 1,000 ML IV SCH ×10 (10:00)
--- NOTE | 2017-02-27 12:31 | HISTORY AND PHYSICAL ---
CHIEF COMPLAINT: Fall. HISTORY OF PRESENT ILLNESS: This is a 61-year-old female who presented to the emergency room via EMS after being found on the floor covered in vomit and urine via police from a welfare check. Apparently, the daughter had not heard from her mother in a week. Therefore she decided to call for a welfare check. On arrival to the emergency room, the patient was alert and she was able to give her name and date, although she did not give much more information. She was noted to have bruising to the right side of her face, around her eye, her left cheek as well as bilateral arms. She was unable to give any history of events over the last week. At the time of my interview, she is alert, awake. She is oriented to person, place, and knows the day of the week. CT scan of the head revealed mild atrophy with no hemorrhage. She did have a white count of 11 as well as a potassium of 2.8 with a CPK of 910. Repeat level is pending. According to the patient's history and prior visit, she does have a history of alcohol abuse, being admitted three times this year for alcohol abuse-related illnesses. In the emergency room, she was given a banana bag as well as continued hydration. She is admitted to ICU for further evaluation and treatment. PAST MEDICAL HISTORY: Depression. History of alcohol abuse. Hyponatremia. PAST SURGICAL HISTORY: Unknown. SOCIAL HISTORY: She lives alone. At present, she does drink a gallon of vodka daily. She denies tobacco or illicit drug use. ALLERGIES: None listed on the chart. HOME MEDICATIONS: A list will be obtained. REVIEW OF SYSTEMS: Unable to obtain from the patient at present. PHYSICAL EXAMINATION: GENERAL: This is a 61-year-old female who is sitting up in the bed, in no distress. VITAL SIGNS: Blood pressure is 109/73 with a heart rate of 75, respirations are 20, temperature is 98.2 degrees with a room air saturation of 98-99%. CARDIOVASCULAR: Regular rate and rhythm. S1 and S2 are appreciated. PULMONARY: Breath sounds are clear with no increased work of breathing noted. GASTROINTESTINAL: Abdomen is soft, nontender, nondistended with bowel sounds in all 4 quadrants. EXTREMITIES: No clubbing, cyanosis, or edema. Pulses are palpable x4. She does have a bruise to the side of her right eye, a bruise to her left cheek as well as scattered bruises to her arms. NEUROLOGIC: She is alert. She is able to answer her name and her birthday. She knows she is at a hospital. LABORATORY: WBC is 8 with a hemoglobin of 8.5, hematocrit 27.3 and platelets of 158,000. Sodium is 154, potassium 2.4, BUN 43, creatinine 0.9, with a glucose of 94. Of note, admission WBC was 11.18. Hemoglobin 9.4, hematocrit 29.4. Bilirubin was 1.9 on admission. This morning it is 1.6 with AST of 53, down to 45 this morning. ALT 49, down to 41 this morning. Alkaline phosphatase 164, down to 140. She did have as CPK of 910 with repeat pending. IMAGING: CT of the head revealed no acute processes. ASSESSMENT AND PLAN: 1. Altered mental status. Causes could be multifactorial. The patient did fall. It is unknown how long she was down. CT of the head was negative, she does drink alcohol daily stating multiple times that she drinks a gallon a day as she did state in previous admissions. Blood alcohol was 0. 2. Dehydration. She was given a liter of a banana bag in the emergency room, followed by continued hydration at 150 an hour. We will continue with this, giving 1 more banana bag and a D5 and a half-normal saline. We will trend her labs. 3. Hypokalemia. We will supplement potassium and continue to trend her labs. 4. Hypernatremia. We will change fluids to D5 and a half. Continue with hydration and trend labs. 5. Bipolar disorder. Aware. 6. Rhabdomyolysis. We will continue with hydration and continue to trend total creatine phosphokinase. 7. Acute kidney injury. Creatinine was 1.1 on admission. It is down to 0.9. We will continue to watch labs. 8. Elevated liver function tests. They are trending down. We will continue with our treatment and trend labs daily. 9. Elevated lipase. The patient does have a history of pancreatitis, although at present she is not complaining of abdominal pain. She has had no nausea or vomiting. We will continue to trend her labs. 10. Chronic alcohol use and abuse. The patient states she does drink a gallon of vodka daily. Blood alcohol is 0. So we will monitor for delirium tremens, alcohol withdrawal. We will start Librium, low-dose 25 mg every 8 hours. Further treatments pending hospital course. Dictated by MEHRDAD Viramontes for Russ Noel MD cc: MEHRDAD Viramontes MD
[2017-02-27 15:58] LABS: OCCULT BLOOD 1 POSITIVE (NEGATIVE)
--- NOTE | 2017-02-27 16:40 | Diag Imaging Result Doc PS360 ---
EXAM: FLAT/UPRIGHT ABD/1 VIEW CHEST HISTORY: abd pain, h/o constipation TECHNIQUE: Two view abdomen. Single view chest. COMPARISON: 12/20/2016 FINDINGS: There are surgical clips within the epigastrium, right upper quadrant, and left mid abdomen. There is moderate retained fecal material within the rectum. Moderate bowel gas without distention. No evidence for obstruction. No free air is appreciated. There is a left lower lobe infiltrate suspicious for pneumonia or atelectasis. Heart size is normal. Right lung is clear. IMPRESSION: Left lower lobe infiltrate most consistent with atelectasis or pneumonia. Moderate retained fecal material within the rectum. No evidence for obstruction. Electronically signed by Khushboo Jean 02/27/2017 4:38 PM
[2017-02-27] MEDS: D5 1/2 NS 1,000 ML IV SCH ×2 (19:01→19:08)
[2017-02-27] MEDS: LIBRIUM PO SCH (20:57)
[2017-02-27] MEDS ORDERED: CALMOSEPTINE OINTMENT TOP PRN (21:15)
[2017-02-28] MEDS: PROTONIX IV SCH ×2 (02:05→13:53)
[2017-02-28] MEDS: D5 1/2 NS 1,000 ML IV SCH ×3 (05:23→23:57)
[2017-02-28] MEDS: LIBRIUM PO SCH ×2 (05:29→16:56)
[2017-02-28] MEDS ORDERED: NS 1,000 ML IV SCH (06:42)
[2017-02-28 06:50] LABS: HEMATOCRIT 26.1 % (37.0-47.0); MCH 31.3 PG (27-31); MCHC 30.7 g/dL (33-37); MPV 10.8 FL (7.4-10.4); RBC 2.56 XMIL (4.2-5.4); SODIUM 143 mmol/L (136-145)
[2017-02-28 06:51] LABS: AGAP 11; ALBUMIN 2.2 g/dL (3.5-5.0); ALKALINE PHOSPHATASE 111 U/L (32-104); BUN 31 mg/dL (8-22); CALCIUM 7.7 mg/dL (8.8-10.2); CHLORIDE 107 mmol/L (98-107); COSMO 293; GOT 30 U/L (10-30); GPT 35 U/L (10-36); LIPASE 180 U/L (13-60); TCO2 25 mmol/L (25-35); TOTAL PROTEIN 3.6 g/dL (6.3-8.3)
[2017-02-28 07:00] LABS: POTASSIUM 2.4 mmol/L (3.5-5.1)
[2017-02-28] MEDS: KLOR-CON PO SCH ×2 (08:32→21:21)
[2017-02-28] MEDS: POTASSIUM CHLORIDE 20 MEQ/SWI 20 MEQ/100 ML IVPB IV SCH ×2 (08:32→10:57)
--- NOTE | 2017-02-28 08:54 | PROGRESS NOTE ---
DATE: 02/28/2017 SUBJECTIVE: The patient is a little bit more awake this morning. She has no new complaints. OBJECTIVE: Vital Signs: Reviewed. Temperature 97 degrees, pulse 81, respiratory rate 13, BP 101/60, satting 100% on room air. General: Patient is awake, alert. She does follow commands this morning. HEENT: Normocephalic. Neck: Supple. CV: Regular rate. Chest: Clear. Abdomen: Soft. Neuro: Improved. She is awake, alert, follows commands. LABS: Potassium 2.4, creatinine 0.8. Stool was heme positive yesterday. Hemoglobin and hematocrit 8 and 26. ASSESSMENT: 1. Anemia. Patient is macrocytic likely secondary to her chronic alcoholism. 2. Hypokalemia. Potassium is 2.4 and will continue to replace. 3. Moderate protein calorie malnutrition. 4. Altered mental status appears to be improving. 5. Dehydration, improving. 6. Heme-positive stools likely secondary to her chronic alcoholism. She has only had 1 bowel movement. I expect this is due to gastritis. I do not expect that she is having an acute gastrointestinal bleed as her hemoglobin and hematocrit has remained stable. Her BUN is actually improving with intravenous fluids down to 31. Will continue to follow. Continue on Protonix twice a day. 7. Hypernatremia, resolved with intravenous fluids. 8. Bipolar. 9. Rhabdomyolysis, resolved. 10. Chronic alcohol abuse. We will continue Librium. We will continue to wean. TIME SPENT: 40 minutes spent in total care. cc: Russ Noel MD
[2017-02-28] MEDS: CARAFATE LIQUID PO SCH ×2 (13:53→21:21)
[2017-02-28] MEDS: LACTULOSE PO SCH (13:53)
[2017-02-28] MEDS: SODIUM CHLORIDE 0.9% INJ SCH (13:53)
[2017-02-28] MEDS: SANTYL OINT TOP SCH (14:45)
[2017-02-28 18:46] LABS: AGAP 8; BUN 27 mg/dL (8-22); CHLORIDE 107 mmol/L (98-107); COSMO 284; POTASSIUM 3.3 mmol/L (3.5-5.1); SODIUM 139 mmol/L (136-145); TCO2 24 mmol/L (25-35)
[2017-03-01] MEDS: CARAFATE LIQUID PO SCH ×4 (02:56→20:30)
[2017-03-01] MEDS: PROTONIX IV SCH ×2 (02:56→15:08)
[2017-03-01] MEDS: LIBRIUM PO SCH ×2 (05:37→16:54)
[2017-03-01 06:31] LABS: AGAP 7; BUN 23 mg/dL (8-22); CALCIUM 7.9 mg/dL (8.8-10.2); CHLORIDE 107 mmol/L (98-107); COSMO 278; POTASSIUM 3.5 mmol/L (3.5-5.1); SODIUM 137 mmol/L (136-145); TCO2 24 mmol/L (25-35)
[2017-03-01 06:32] LABS: ALBUMIN 2.1 g/dL (3.5-5.0); ALKALINE PHOSPHATASE 110 U/L (32-104); GOT 27 U/L (10-30); GPT 38 U/L (10-36); TOTAL PROTEIN 3.9 g/dL (6.3-8.3)
[2017-03-01] MEDS: KLOR-CON PO SCH ×3 (07:56→20:30)
[2017-03-01] MEDS: SANTYL OINT TOP SCH (08:00)
[2017-03-01] MEDS: LACTULOSE PO SCH (08:01)
[2017-03-01] MEDS: D5 1/2 NS 1,000 ML IV SCH ×2 (10:24→12:45)
--- NOTE | 2017-03-01 12:43 | PROGRESS NOTE ---
DATE: 03/01/2017 SUBJECTIVE: The patient is a little more awake and alert this morning. She is eating breakfast with maximum assistance. OBJECTIVE: Vital Signs: Temperature 97 degrees, pulse 86, respiratory rate 21, blood pressure 109/68, saturation 100% on room air. General: Patient is awake, alert, and currently in no real respiratory distress. Pleasant to talk with. Neck: Supple. Cardiovascular: Regular rate. Chest: Clear. Abdomen: Soft. LABORATORY DATA: No current labs this morning, as they are pending. ASSESSMENT: 1. Moderate protein calorie malnutrition. 2. Altered mental status. Appears to be improving. Likely secondary to medication and alcohol over usage. 3. Chronic alcohol use and abuse. There are no current signs of withdrawal. Patient appears stable. 4. Hypokalemia, resolved. 5. Hypernatremia, resolved. 6. Rhabdomyolysis, resolved. 7. Acute kidney injury, resolved. Creatinine currently 0.7 and BUN 23. PLAN: We will transfer patient to the floor. We will continue her current home medications. We will decrease IV fluids to 75 for 1 L and then saline lock. We will get Physical Therapy involved. cc: Russ Noel MD
[2017-03-01] MEDS: SODIUM CHLORIDE 0.9% INJ SCH (15:08)
[2017-03-02] MEDS: D5 1/2 NS 1,000 ML IV SCH (00:57)
[2017-03-02] MEDS: CARAFATE LIQUID PO SCH ×4 (01:04→21:26)
[2017-03-02] MEDS: PROTONIX IV SCH ×2 (01:04→15:31)
[2017-03-02] MEDS: LIBRIUM PO SCH ×2 (05:36→21:26)
[2017-03-02] MEDS: KLOR-CON PO SCH ×2 (08:23→21:26)
[2017-03-02] MEDS: SANTYL OINT TOP SCH (08:23)
[2017-03-02] MEDS: LACTULOSE PO SCH (08:38)
[2017-03-02 11:04] LABS: HEMATOCRIT 25.8 % (37.0-47.0); HEMOGLOBIN 8.1 g/dL (12.0-16.0); MCH 31.8 PG (27-31); MCHC 31.4 g/dL (33-37); MCV 101.2 FL (81-99); MPV 10.6 FL (7.4-10.4); RBC 2.55 XMIL (4.2-5.4)
[2017-03-02 11:48] LABS: AGAP 6; BUN 19 mg/dL (8-22); CALCIUM 8.1 mg/dL (8.8-10.2); CHLORIDE 108 mmol/L (98-107); COSMO 271; POTASSIUM 5.1 mmol/L (3.5-5.1); SODIUM 135 mmol/L (136-145); TCO2 22 mmol/L (25-35)
--- NOTE | 2017-03-02 12:16 | PROGRESS NOTE ---
DATE: 03/02/2017 SUBJECTIVE: The patient is a little more awake this morning. She is resting comfortably without any complaints. OBJECTIVE: Vital Signs: Blood pressure is 106/60 with a heart rate of 81, respirations are 18, temperature is 96.8 degrees temporal with room air saturations 98% to 100%. Cardiovascular: Regular rate and rhythm. S1, S2 appreciated. Breath sounds are clear, diminished at the bases with chest rise and fall symmetric with respiration. No increased work of breathing noted. Gastrointestinal: Abdomen is soft, nontender. Bowel sounds in all 4 quadrants. Extremities: No clubbing, cyanosis. She does have some trace pretibial edema in bilateral lower extremities. Neurologic: She is oriented to person. She knows she is at the hospital. She does answer questions and follow commands. LABS: Labs are pending. ASSESSMENT: 1. Moderate protein calorie malnutrition. 2. Altered mental status, which is improving. This is most likely secondary to medication and alcohol over use. 3. Chronic alcohol use and abuse. She has had no current signs of withdrawal. She is stable. 4. Hypokalemia, resolved. 5. Hypernatremia, resolved. 6. Rhabdomyolysis, resolved. 7. Acute kidney injury, resolved. Dictated by MEHRDAD Viramontes for Russ Noel MD cc: MEHRDAD Viramontes MD
[2017-03-02] MEDS: SODIUM CHLORIDE 0.9% INJ SCH (15:31)
[2017-03-03] MEDS: NORCO-5 PO PRN ×3 (00:41→22:49)
[2017-03-03] MEDS: CARAFATE LIQUID PO SCH ×4 (03:28→22:50)
[2017-03-03] MEDS: PROTONIX IV SCH ×3 (03:28→22:49)
[2017-03-03] MEDS: LIBRIUM PO SCH ×3 (04:45→22:49)
[2017-03-03] MEDS ORDERED: BLISTEX MEDICATED BERRY LIP BALM TOP PRN ×2 (04:51→21:10)
[2017-03-03 06:33] LABS: HEMATOCRIT 21.8 % (37.0-47.0); HEMOGLOBIN 6.8 g/dL (12.0-16.0); MCH 31.5 PG (27-31); MCHC 31.2 g/dL (33-37); MCV 100.9 FL (81-99); MPV 10.6 FL (7.4-10.4); RBC 2.16 XMIL (4.2-5.4)
[2017-03-03 06:44] LABS: AGAP 7; BUN 16 mg/dL (8-22); CHLORIDE 107 mmol/L (98-107); COSMO 270; SODIUM 135 mmol/L (136-145); TCO2 21 mmol/L (25-35)
[2017-03-03] MEDS ORDERED: BENADRYL PO ONE (09:00)
--- NOTE | 2017-03-03 09:39 | PROGRESS NOTE ---
DATE: 03/03/2017 SUBJECTIVE: The patient is little more awake this morning. She has no complaints. OBJECTIVE: Vital Signs: Blood pressure is 102/64, with a heart rate of 89, respirations are 18, temperature is 98.2 degrees oral, with a room air saturation of 100%. Cardiovascular: Regular rate and rhythm. S1 and S2 are appreciated. Pulmonary: Breath sounds are clear with no increased work of breathing noted. Gastrointestinal: Abdomen is soft, nontender, nondistended with bowel sounds in all 4 quadrants. Extremities: No clubbing, cyanosis. She does have some trace pretibial edema bilateral. Neurologic: She is alert. She is oriented to person and she knows she is in the hospital. Labs: WBC is 6.3, with a hemoglobin of 6.8, hematocrit 21.8, and platelets of 207,000. Sodium is 135, potassium 5, BUN 16, creatinine 0.6, with a glucose of 83. ASSESSMENT AND PLAN: 1. Moderate gastrointestinal bleed. Patient's hemoglobin and hematocrit have dropped from 8.1 and 25.8 to 6.8 and 21.8. We will transfuse 2 units today. We will transfer her over to [facility] for a gastroenterology consult with Dr. Shah. We will hold her nothing per oral tonight. 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 We will continue with Carafate, begin Protonix drip. 2. Altered mental status, improving. 3. Chronic alcohol use and abuse. She has no signs of withdrawal. 4. Hypokalemia. We will continue to trend labs, replete as needed. 5. Hypernatremia. This has resolved. 6. Rhabdomyolysis, resolved. 7. Acute kidney injury. This has resolved. Dictated by MEHRDAD Viramontes for Russ Noel MD cc: MEHRDAD Viramontes MD
[2017-03-03] MEDS ORDERED: LASIX IV SCH ×2 (10:00→21:15)
[2017-03-03] MEDS: LACTULOSE PO SCH (10:28)
[2017-03-03] MEDS: SANTYL OINT TOP SCH (10:30)
[2017-03-03] MEDS ORDERED: NS 500 ML ONE (11:19)
[2017-03-03] MEDS ORDERED: NS 500 ML IV ONE (11:23)
[2017-03-03] MEDS ORDERED: CALMOSEPTINE OINTMENT TOP PRN (21:10)
[2017-03-03] MEDS ORDERED: SODIUM CHLORIDE 0.9% INJ SCH (21:15)
[2017-03-03 23:03] LABS: MANUAL DIFF NEEDED? NO
[2017-03-03 23:15] LABS: BASO% 0.1 % (0.0-0.8); EOS# 0.06 X1000 (0.0-0.7); EOS% 0.9 % (0.0-10.0); HEMATOCRIT 30.9 % (37.0-47.0); HEMOGLOBIN 10.1 g/dL (12.0-16.0); IMM GRAN# 0.03 X1000 (0.0-0.04); IMM GRAN% 0.4 % (0.0-0.5); LYMPH# 1.35 X1000 (1.2-3.4); LYMPH% 19.7 % (20.5-51.1); MCH 31.5 PG (27-31); MCHC 32.7 g/dL (33-37); MCV 96.3 FL (81-99); MONO# 1.01 X1000 (0.11-0.59); MONO% 14.7 % (1.7-9.3); MPV 10.2 FL (7.4-10.4); NEUT% 64.2 % (42.2-75.2); PLT 233 X1000 (130-400); RBC 3.21 XMIL (4.2-5.4)
[2017-03-04] MEDS: CARAFATE LIQUID PO SCH ×4 (04:01→22:37)
[2017-03-04 06:23] LABS: MANUAL DIFF NEEDED? NO
[2017-03-04 06:48] LABS: BASO% 0.2 % (0.0-0.8); EOS# 0.05 X1000 (0.0-0.7); EOS% 0.8 % (0.0-10.0); HEMATOCRIT 29.2 % (37.0-47.0); HEMOGLOBIN 9.5 g/dL (12.0-16.0); IMM GRAN# 0.02 X1000 (0.0-0.04); IMM GRAN% 0.3 % (0.0-0.5); LYMPH# 1.34 X1000 (1.2-3.4); LYMPH% 21.4 % (20.5-51.1); MCH 31.5 PG (27-31); MCHC 32.5 g/dL (33-37); MCV 96.7 FL (81-99); MONO% 14.4 % (1.7-9.3); MPV 10.4 FL (7.4-10.4); NEUT% 62.9 % (42.2-75.2); PLT 240 X1000 (130-400); RBC 3.02 XMIL (4.2-5.4)
[2017-03-04 06:57] LABS: INR 1.02; PROTIME 10.7 Seconds (9.2-11.7); PTT 33.7 Seconds (22.0-36.0)
[2017-03-04 07:00] LABS: IRON SATURATION 71 %; TIBC 106 ug/dL; TOTAL IRON 75 ug/dL (49-151); UNBOUND IRON 31 ug/dL (112-346)
[2017-03-04 07:32] LABS: FERRITIN 187 ng/mL (13-150)
[2017-03-04] MEDS: SANTYL OINT TOP SCH (10:11)
[2017-03-04] MEDS: LIBRIUM PO SCH ×2 (10:11→22:36)
[2017-03-04] MEDS: PROTONIX IV SCH (10:12)
--- NOTE | 2017-03-04 18:31 | CONSULTATION ---
DATE OF CONSULTATION: 03/04/2017 CONSULTATION REQUEST: Questionable GI bleed, anemia. HISTORY OF PRESENT ILLNESS: This is a 61-year-old, white female, who had presented to the emergency room at [place] after being found on the floor by EMS. At that time, she was unresponsive but by the time she came into the hospital. She was awake and more alert. She had fallen. She had bruises to the right side of her face and cheek. She also had some bruising to the lower extremities and bilateral arms. She was transferred over to [facility] for further evaluation after noting black tarry stool and decrease in hemoglobin and hematocrit. Information is obtained from the chart. The patient is awake, but she is not able to give her full history. No family is at the bedside. Currently she denies abdominal pain. PAST MEDICAL HISTORY: Depression. History of alcohol abuse. History of hyponatremia. PAST SURGICAL HISTORY: Unknown. I do have a report from when she was seen by Dr. Martinez in the hospital in December 2016 where she had an EGD and colonoscopy. EGD a showed distal esophageal ulcer. History of Hilton-en-Y gastric bypass. Gastritis, gastric ulcer and a gastric pouch. Colonoscopy showed acute colitis, proctitis and pressure ulcers in the buttocks. ALLERGIES: No known drug allergies. HOME MEDICATIONS: No medications are listed under her home medication list. SOCIAL HISTORY: She has a history of alcohol abuse. She lives alone. Patient states her daughter helps her. REVIEW OF SYSTEMS: Per HPI. PHYSICAL EXAMINATION: Vital Signs: Temperature 97.7 degrees, pulse 76, respirations 16, blood pressure 117/68. Generally: Patient is awake and alert. She is oriented to person and place at times although she is unable to fully assist with complete history. HEENT: Normocephalic, atraumatic. Pupils equal, round, reactive to light. She has a bruise on her face to the right eye and left cheek. Cardiovascular: Regular rate and rhythm. Respiratory: Lung sounds clear bilaterally. Gastrointestinal: Soft. Positive bowel sounds. Nontender. Extremities: She has some bruising noted to her extremities, upper and lower. DIAGNOSTIC RESULTS: Laboratory/hematology: White count 6.25, hemoglobin 9.5, hematocrit 29.2, MCV 96.7, platelet 240,000. Coagulation: Prothrombin time 10.7, INR 1.02. PTT 33.7. Chemistry: Sodium 135, potassium 5.0, chloride 107, CO2 21, BUN 16, creatinine 0.6, glucose 83, iron 75, TIBC 106, percent saturation 71, ferritin 187. Total bilirubin 0.70, AST 27, ALT 30, alkaline phosphatase 110, ammonia 22. Abdominal x-ray on 02/27/2017 showed a left lower lobe infiltrate. Atelectasis versus pneumonia. Moderately retained fecal material within the rectum. ASSESSMENT AND PLAN: 1. Recent fall. 2. Altered mental status. Improving. 3. Dehydration. Improving. 4. History of alcohol abuse. 5. Anemia. 6. Questionable gastrointestinal bleed. PLAN: Continue supportive care. Continue IV fluids and hydration. She has had blood transfusions. Hemoglobin and hematocrit today 9.5 and 29.2, no reported bowel movement yesterday or today. She had a liquid black tarry stool on 03/02. Abdominal x-ray showed retained feces in the rectum. We will continue to follow. She has had workup in December by Dr. Martinez including an EGD and colonoscopy. She has had esophageal ulcer, gastric ulcer and colitis versus proctitis. She had also had a small bowel follow-through that was negative. We will continue to follow. Monitor hemoglobin and hematocrit. Transfuse packed red blood cells as needed. Monitor for any active bleeding. Further plans will be made as needed. Dr. Martinez will return on Saturday. As endoscopies are needed urgently, they will be done by Dr. Shah. Otherwise Dr. Martinez will follow up and mushroom picker management on Saturday. Thank you for this consultation. I have discussed this case with Dr. Shah. Dictated by MEHRDAD Morris for Aldo Shah MD cc: MEHRDAD Tomas MD
[2017-03-04] MEDS: NORCO-5 PO PRN (22:37)
[2017-03-05] MEDS: CARAFATE LIQUID PO SCH ×3 (08:15→18:01)
[2017-03-05] MEDS: NORCO-5 PO PRN ×2 (08:42→12:41)
[2017-03-05] MEDS: LIBRIUM PO SCH ×2 (08:43→20:17)
[2017-03-05] MEDS: SANTYL OINT TOP SCH (08:46)
[2017-03-05] MEDS: PRILOSEC PO SCH (11:03)
[2017-03-05 14:17] LABS: HEMATOCRIT 32.1 % (37.0-47.0); HEMOGLOBIN 10.6 g/dL (12.0-16.0)
--- NOTE | 2017-03-05 16:45 | PROGRESS NOTE ---
DATE: 03/05/2017 SUBJECTIVE: The patient was complaining of pain at this time and no other frequent bowel movements since transfer from [place]. OBJECTIVE: Vital Signs: Temp 97.6, heart rate 64, respiratory rate 20, BP 122/ 73, 100% on room air. General: Patient was found sleeping, was a little bit drowsy, but was able to arouse her. She was alert and oriented x3. CV: S1, S2 auscultated. Regular rate and rhythm. No murmurs, gallops or rubs noted. Respiratory: Lung sounds are clear and equal throughout. Chest is guarded. No wheezes, rhonchi or crackles noted. GI: Bowel sounds auscultated in all 4 quadrants. Abdomen: Nondistended and nontender. No abdominal bruits noted. Extremities: Patient does have significant bruising to her upper extremities and she is found to have +2 edema in her bilateral lower extremities. LABS: White blood cell count 6.25, hemoglobin 10, hematocrit 32, platelets 240. Sodium 135, potassium 5.0, chloride 107, BUN 16, creatinine 0.6, glucose 83. ASSESSMENT AND PLAN: 1. Alcoholic encephalopathy. This is improving. We have decreased her Librium to 10 mg oral due to patient's drowsiness. 2. Gastrointestinal bleed with acute blood loss. Patient did have to receive 2 units of packed red blood cells. Hemoglobin did get down to 6 at one point. She is [address] Martinez should be seeing her when she gets back tomorrow, and will follow her recommendations. 3. Protein calorie malnutrition. The patient is on clear liquid diet with clear Ensure and supplement with meals. 4. Chronic alcohol abuse. See #1. Dictated by MEHRDAD Jacobo for Rafiq Grant MD cc: MEHRDAD Jacobo MD pt examined, agree with above APENOT MTDD
--- NOTE | 2017-03-05 17:43 | PROGRESS NOTE ---
DATE: 03/05/2017 SUBJECTIVE: Patient is resting comfortably. Verbalizes no complaints. She is doing well. She has not had any evidence of active GI bleed. Her hemoglobin hematocrit have been stable since admission. It is 10.6 and 32.1 today. OBJECTIVE: Vitals: Temperature 97.6 degrees, pulse 64 per minute, breathing 20, blood pressure 132/73. Abdomen: Is soft. Bowel sounds are audible. Extremities: No pedal edema noted. LABORATORY: Again, hemoglobin 10.6, hematocrit 32.1. IMPRESSION: Gastrointestinal bleed stable. No evidence of active bleeding now. We will continue current treatment. Dr. Martinez will be available tomorrow to bead picker the case. cc: Aldo Shah MD
[2017-03-06] MEDS: CARAFATE LIQUID PO SCH ×6 (01:09→23:17)
[2017-03-06] MEDS: NORCO-5 PO PRN ×2 (01:09→12:03)
[2017-03-06 05:30] LABS: MANUAL DIFF NEEDED? NO
[2017-03-06] MEDS: PRILOSEC PO SCH ×2 (05:48→07:16)
[2017-03-06 06:07] LABS: BASO% 0.3 % (0.0-0.8); EOS# 0.04 X1000 (0.0-0.7); EOS% 0.6 % (0.0-10.0); HEMATOCRIT 31.9 % (37.0-47.0); HEMOGLOBIN 10.3 g/dL (12.0-16.0); IMM GRAN# 0.02 X1000 (0.0-0.04); IMM GRAN% 0.3 % (0.0-0.5); LYMPH# 1.17 X1000 (1.2-3.4); LYMPH% 16.6 % (20.5-51.1); MCH 31.2 PG (27-31); MCHC 32.3 g/dL (33-37); MCV 96.7 FL (81-99); MONO# 0.86 X1000 (0.11-0.59); MONO% 12.2 % (1.7-9.3); MPV 10.1 FL (7.4-10.4); PLT 295 X1000 (130-400)
[2017-03-06 06:24] LABS: AGAP 9; ALBUMIN 1.7 g/dL (3.5-5.0); ALKALINE PHOSPHATASE 223 U/L (32-104); BUN 14 mg/dL (8-22); CALCIUM 8.2 mg/dL (8.8-10.2); CHLORIDE 109 mmol/L (98-107); COSMO 280; GOT 41 U/L (10-30); GPT 36 U/L (10-36); MAGNESIUM 1.3 mg/dL (1.5-2.7); POTASSIUM 3.3 mmol/L (3.5-5.1); SODIUM 141 mmol/L (136-145); TCO2 23 mmol/L (25-35); TOTAL BILIRUBIN 0.59 mg/dL (0.20-1.00)
[2017-03-06] MEDS ORDERED: PRILOSEC PO SCH (07:00)
[2017-03-06] MEDS: LIBRIUM PO SCH (08:12)
[2017-03-06] MEDS: SANTYL OINT TOP SCH (08:14)
--- NOTE | 2017-03-06 17:05 | PROGRESS NOTE ---
DATE: 03/06/2017 SUBJECTIVE: Patient has no focal complaints. OBJECTIVE: Vital signs: Blood pressure 110/67, heart rate 68, respiratory rate 16, temperature 97.3 degrees. Cardiovascular: Regular rate and rhythm. Pulmonary: Bilateral breath sounds. Clear to auscultation. GI: Soft, nontender, nondistended. Bowel sounds are positive. LABORATORY DATA: Hemoglobin and hematocrit 10 and 31 which is stable, platelets 295,000. Potassium 3.3, magnesium of 1.3, alkaline phosphatase 223. Albumin low at 1.7. PROBLEM LIST: 1. Alcoholic encephalopathy. She does seem to be improving. Librium we probably can discontinue. 2. Gastrointestinal bleed. Hemoglobin and hematocrit have dropped slowly. She had received 2 units. There is no gross evidence of bleeding. Her hemoglobin and hematocrit actually dropped slowly and now it has improved. 3. Hypokalemia, hypomagnesemia. We will supplement and follow. 4. Chronic alcohol use. She is not interested in pursuing detoxification. We will need to better evaluate her social situation for disposition because I am not sure where she is going to be at this point. cc: Rafiq Grant MD
[2017-03-06] MEDS: CALMOSEPTINE OINTMENT TOP PRN (17:37)
[2017-03-07] MEDS: CARAFATE LIQUID PO SCH ×4 (04:15→21:23)
[2017-03-07] MEDS: PRILOSEC PO SCH ×2 (04:15→06:15)
[2017-03-07] MEDS: NORCO-5 PO PRN (04:16)
[2017-03-07 06:19] LABS: MANUAL DIFF NEEDED? NO
[2017-03-07 06:31] LABS: BASO% 0.3 % (0.0-0.8); EOS# 0.04 X1000 (0.0-0.7); EOS% 0.5 % (0.0-10.0); HEMATOCRIT 33.8 % (37.0-47.0); HEMOGLOBIN 11.1 g/dL (12.0-16.0); IMM GRAN# 0.02 X1000 (0.0-0.04); IMM GRAN% 0.3 % (0.0-0.5); LYMPH# 1.41 X1000 (1.2-3.4); LYMPH% 19.3 % (20.5-51.1); MCH 31.6 PG (27-31); MCHC 32.8 g/dL (33-37); MCV 96.3 FL (81-99); MONO# 0.62 X1000 (0.11-0.59); MONO% 8.5 % (1.7-9.3); MPV 10.2 FL (7.4-10.4); NEUT% 71.1 % (42.2-75.2); PLT 312 X1000 (130-400); RBC 3.51 XMIL (4.2-5.4)
[2017-03-07 07:05] LABS: AGAP 9; ALBUMIN 1.9 g/dL (3.5-5.0); ALKALINE PHOSPHATASE 220 U/L (32-104); BUN 13 mg/dL (8-22); CHLORIDE 109 mmol/L (98-107); COSMO 282; GOT 26 U/L (10-30); GPT 35 U/L (10-36); MAGNESIUM 1.3 mg/dL (1.5-2.7); POTASSIUM 2.9 mmol/L (3.5-5.1); SODIUM 142 mmol/L (136-145); TCO2 24 mmol/L (25-35); TOTAL BILIRUBIN 0.49 mg/dL (0.20-1.00); TOTAL PROTEIN 3.9 g/dL (6.3-8.3)
[2017-03-07] MEDS: SANTYL OINT TOP SCH (08:30)
[2017-03-07] MEDS ORDERED: KLOR-CON PO ONE (09:10)
[2017-03-07] MEDS ORDERED: MAGNESIUM SULFATE 2 GM/S.W.I. 2 GM/50 ML IVPB IV ONE (10:00)
[2017-03-07] MEDS: POTASSIUM CHLORIDE 20 MEQ/SWI 20 MEQ/100 ML IVPB IV SCH ×2 (12:11→14:24)
[2017-03-07] MEDS ORDERED: SLOW-MAG PO ONE (17:16)
--- NOTE | 2017-03-07 17:37 | PROGRESS NOTE ---
DATE: 03/07/2017 SUBJECTIVE: The patient is weak, confused. No major issues. OBJECTIVE: Blood pressure 121/69, heart rate 67, respiratory of 14, temperature 97.6 degrees, 100% saturation on 2 L.Cardiovascular: Regular rate and rhythm. Pulmonary: Bilateral breath sounds. Clear to auscultation. GI: Soft, nontender, nondistended. Bowel sounds are positive. LABORATORY DATA: Hemoglobin and hematocrit 11 and 30. White count normal. Potassium 2.9. Magnesium of 1.3. PROBLEM LIST: 1. Reported GI bleed. She has not had any further drop in her hemoglobin and hematocrit and no plans for endoscopy. Will continue proton pump inhibitor and she seems to be doing okay. She is not really willing to reduce that. 2. Encephalopathy. I have stopped her Librium. She is not really getting anything sedating. She maybe seems a little bit more awake but she is still very, very out of it. I am not sure what her baseline level of functioning is but it seems poor. 3. Hypokalemia. We will continue to supplement and follow. 4. Hypomagnesemia. Will also supplement and follow. 5. Chronic alcohol use. Now she is saying she will participate in a program as her opinion has changed with various people she talks to which leads to disposition. She does not have insurance to meet rehab needs however she is very debilitated and she is going to be difficult to be sent home in her current state. We are going to continue to monitor her. Continue with PT and follow closely. cc: Rafiq Grant MD
[2017-03-07] MEDS: POTASSIUM CHLORIDE 20 MEQ, MAGNESIUM SULFATE 2 GM, THIAMINE 100 MG, FOLIC ACID 1 MG, M.... IV SCH ×6 (18:17)
[2017-03-08] MEDS: TYLENOL PO PRN (00:48)
[2017-03-08] MEDS: CARAFATE LIQUID PO SCH ×4 (02:00→18:01)
[2017-03-08] MEDS: PRILOSEC PO SCH ×2 (05:11→08:14)
[2017-03-08 06:10] LABS: MANUAL DIFF NEEDED? NO
[2017-03-08 06:16] LABS: BASO% 0.4 % (0.0-0.8); EOS# 0.05 X1000 (0.0-0.7); EOS% 0.7 % (0.0-10.0); HEMATOCRIT 32.1 % (37.0-47.0); HEMOGLOBIN 10.5 g/dL (12.0-16.0); IMM GRAN# 0.02 X1000 (0.0-0.04); IMM GRAN% 0.3 % (0.0-0.5); LYMPH# 1.63 X1000 (1.2-3.4); LYMPH% 23.6 % (20.5-51.1); MCH 31.7 PG (27-31); MCHC 32.7 g/dL (33-37); MONO# 0.71 X1000 (0.11-0.59); MONO% 10.3 % (1.7-9.3); MPV 9.9 FL (7.4-10.4); NEUT% 64.7 % (42.2-75.2); PLT 312 X1000 (130-400); RBC 3.31 XMIL (4.2-5.4)
[2017-03-08 07:01] LABS: AGAP 8; ALBUMIN 1.7 g/dL (3.5-5.0); ALKALINE PHOSPHATASE 208 U/L (32-104); BUN 11 mg/dL (8-22); CALCIUM 8.1 mg/dL (8.8-10.2); CHLORIDE 111 mmol/L (98-107); COSMO 279; GOT 26 U/L (10-30); GPT 35 U/L (10-36); MAGNESIUM 2.5 mg/dL (1.5-2.7); SODIUM 140 mmol/L (136-145); TCO2 21 mmol/L (25-35); TOTAL BILIRUBIN 0.42 mg/dL (0.20-1.00); TOTAL PROTEIN 3.9 g/dL (6.3-8.3)
[2017-03-08 07:13] LABS: POTASSIUM 4.3 mmol/L (3.5-5.1)
[2017-03-08] MEDS: SANTYL OINT TOP SCH (13:04)
--- NOTE | 2017-03-08 17:58 | PROGRESS NOTE ---
DATE: 03/08/2017 SUBJECTIVE: The patient is minimally interactive today. According to the nurses, she is scheduled for discharge. However, the daughter who cares for her has been admitted to [facility] allegedly with alcohol intoxication. The nursing staff spoke with the daughter who is in the hospital and there is no one at home to care for the patient. OBJECTIVE DATA: Vital signs: Blood pressure of 121/71, pulse 69, respiration 14, temperature of 97.9 degrees. The exam was deferred. LABORATORY DATA: Reveals a hemoglobin of 10.5 with hematocrit of 32.1 and a white count of 6.90. She has 312,000 platelets. Sodium is 140, potassium 4.3, chloride 111, CO2 21, BUN 11, creatinine 0.5 with a glucose of 94. Calcium is 8.1, magnesium 2.5, total bilirubin 0.42, AST 26, ALT 35, alkaline phosphatase 208, total protein 3.9, albumin 1.7. IMPRESSION: 1. Alcohol liver disease. 2. Possible gastrointestinal bleed. 3. Cirrhosis. 4. History of alcohol abuse. RECOMMENDATION: 1. The patient states that she has no plans to stop drinking when she goes home. Unfortunately, in light of the above history, the patient is not safe for discharge as there is no family member to care for her and the daughter has her own health issues. Therefore , I recommend cancelling discharge for today. 2. I recommend a social work assistant consult. We may need to look at options for placement if the patient is unable to maintain herself at home. 3. From a GI perspective, she has had a recent EGD and colonoscopy. She has a history of esophageal ulcer, gastric ulcer, and has had acute colitis. Hemodynamically , her labs have been stable with no evidence of active bleeding. Therefore, I recommend Prilosec and Carafate as an outpatient. She should complete 12 weeks of Carafate and then stop. 4. I would continue omeprazole for at least 6 months if she is willing to take it. 5. It is reasonable to have the patient return to the clinic in 2-3 weeks to assess interval progress, unless she is transitioned to a nursing care facility given her inability to maintain herself at home. cc: MD Rafiq Monreal MD MTDD
[2017-03-08] MEDS: POTASSIUM CHLORIDE 20 MEQ, MAGNESIUM SULFATE 2 GM, THIAMINE 100 MG, FOLIC ACID 1 MG, M.... IV SCH ×6 (18:01)
[2017-03-09] MEDS: CARAFATE LIQUID PO SCH ×6 (03:19→23:12)
[2017-03-09] MEDS: PRILOSEC PO SCH (06:00)
[2017-03-09] MEDS: SANTYL OINT TOP SCH (15:10)
--- NOTE | 2017-03-09 16:39 | PROGRESS NOTE ---
DATE: 03/08/2017 SUBJECTIVE: The patient has no focal complaints. OBJECTIVE: Blood pressure 151/73, heart rate 76, respiratory rate 18, temperature 95 degrees, 98% on room air.Cardiovascular: Regular rate and rhythm. Pulmonary: Bilateral breath sounds. Clear to auscultation. GI: Soft, nontender, nondistended. Bowel sounds are positive. Extremities: No clubbing or cyanosis. Lymphatics: No peripheral edema. Neurological: Nonfocal. LABORATORY DATA: Sodium 140, potassium 4.3. Hemoglobin and hematocrit 10 and 32. Her values unremarkable. PROBLEM LIST: 1. Encephalopathy seems to be close to baseline. 2. Hypokalemia has resolved. 3. Alcohol abuse. Patient is unwilling to participate in any counseling or persistence of sobriety. 4. Disposition: Plan is to go home with family. There are no rehab options. She is uninsured. We will try to see if we can get some visits with the [facility] for home health and go from there. cc: Rafiq Grant MD
--- NOTE | 2017-03-09 16:43 | PROGRESS NOTE ---
DATE: 03/09/2017 SUBJECTIVE: Patient has no focal complaints. OBJECTIVE: Vital Signs: Blood pressure 150/70, heart rate 71, respiratory rate 18, temperature 97.8 degrees. Cardiovascular: Regular rate and rhythm. Pulmonary: Bilateral breath sounds. Clear to auscultation. Gastrointestinal: Soft, nontender, and nondistended. Bowel sounds are positive. LABORATORY DATA: None new today. PROBLEM LIST: 1. Encephalopathy appears to be stabilizing. 2. Gastrointestinal bleed. Her hemoglobin and hematocrit have been stable and she refuses other treatment. She is on PPI. 3. Hypokalemia. Stable. 4. Chronic alcohol use. At this point, she is not requesting any treatment and refuses to pursue sobriety. We will give her outpatient programs as designated. DISPOSITION: Unfortunately, I am not sure she can take care of herself at this point. Plan was to discharge to family; however, by report, her daughter was hospitalized herself at [facility] yesterday and she could not take care of her mother at this point, so we are evaluating. We are going to watch until there are family members who can help participate in her care. cc: Rafiq Grant MD
[2017-03-09] MEDS: POTASSIUM CHLORIDE 20 MEQ, MAGNESIUM SULFATE 2 GM, THIAMINE 100 MG, FOLIC ACID 1 MG, M.... IV SCH ×6 (18:30)
[2017-03-09] MEDS: TYLENOL PO PRN (20:39)
[2017-03-10] MEDS: PRILOSEC PO SCH (06:02)
[2017-03-10] MEDS: TYLENOL PO PRN (06:02)
[2017-03-10] MEDS: CARAFATE LIQUID PO SCH ×4 (06:02→22:41)
[2017-03-10 06:33] LABS: HEMATOCRIT 30.3 % (37.0-47.0); HEMOGLOBIN 9.8 g/dL (12.0-16.0); MCH 32.5 PG (27-31); MCHC 32.3 g/dL (33-37); MCV 100.3 FL (81-99); MPV 10.2 FL (7.4-10.4); RBC 3.02 XMIL (4.2-5.4)
[2017-03-10 06:37] LABS: AGAP 10; BUN 9 mg/dL (8-22); CALCIUM 8.2 mg/dL (8.8-10.2); CHLORIDE 108 mmol/L (98-107); COSMO 277; MAGNESIUM 2.2 mg/dL (1.5-2.7); POTASSIUM 3.7 mmol/L (3.5-5.1); SODIUM 140 mmol/L (136-145); TCO2 22 mmol/L (25-35)
[2017-03-10] MEDS: SANTYL OINT TOP SCH (09:30)
[2017-03-10] MEDS ORDERED: NON-FORMULARY BULK MED PO SCH (16:00)
[2017-03-10] MEDS: POTASSIUM CHLORIDE 20 MEQ, MAGNESIUM SULFATE 2 GM, THIAMINE 100 MG, FOLIC ACID 1 MG, M.... IV SCH ×6 (17:18)
[2017-03-11] MEDS: TYLENOL PO PRN ×3 (02:15→13:49)
[2017-03-11] MEDS: PRILOSEC PO SCH ×2 (05:31→06:38)
[2017-03-11] MEDS: CARAFATE LIQUID PO SCH ×3 (05:31→17:22)
[2017-03-11 09:48] LABS: HEMATOCRIT 34.7 % (37.0-47.0); HEMOGLOBIN 11.4 g/dL (12.0-16.0); MCH 31.8 PG (27-31); MCHC 32.9 g/dL (33-37); MCV 96.7 FL (81-99); MPV 10.3 FL (7.4-10.4); RBC 3.59 XMIL (4.2-5.4)
[2017-03-11 10:26] LABS: AGAP 11; ALBUMIN 1.9 g/dL (3.5-5.0); ALKALINE PHOSPHATASE 196 U/L (32-104); BUN 8 mg/dL (8-22); CALCIUM 8.3 mg/dL (8.8-10.2); CHLORIDE 108 mmol/L (98-107); COSMO 277; GOT 25 U/L (10-30); GPT 56 U/L (10-36); POTASSIUM 3.4 mmol/L (3.5-5.1); SODIUM 140 mmol/L (136-145); TCO2 21 mmol/L (25-35); TOTAL BILIRUBIN 0.46 mg/dL (0.20-1.00); TOTAL PROTEIN 4.6 g/dL (6.3-8.3)
[2017-03-11] MEDS ORDERED: KLOR-CON PO ONE (10:45)
[2017-03-11] MEDS: SANTYL OINT TOP SCH (13:51)
[2017-03-11] MEDS ORDERED: ZOFRAN IV PRN (14:02)
--- NOTE | 2017-03-11 17:18 | PROGRESS NOTE ---
DATE: 03/11/2017 SUBJECTIVE: The patient is sitting in a chair. She complains of abdominal pain. OBJECTIVE: Vital Signs: Temperature 98.1 degrees, blood pressure 127/80, heart rate 72, respirations 20, O2 saturations 100% on room air. General: This is an elderly female, lying in bed, in no acute distress. Head: Normocephalic, atraumatic. Heart: S1, S2. Normal. Regular rate and rhythm. Lungs: Clear to auscultation bilaterally. No wheezes, no rales, no rhonchi. Abdomen: Positive bowel sounds. Soft, nontender, nondistended. Extremities: The patient has multiple ecchymotic lesions on her arms and legs. Neurologic: The patient is alert and oriented x3. LABS: White blood cell count 6.9, hemoglobin 11, hematocrit 34, platelets 346,000. Sodium 140, potassium 3.4, chloride 108, CO2 21, BUN 8, creatinine 0.5, glucose 84, albumin 1.9. ASSESSMENT AND PLAN: 1. Alcoholic liver disease. Aware. 2. Suspected GI bleed. The patient's hemoglobin and hematocrit are stable. Continue on Prilosec. 3. Liver cirrhosis. Aware. 4. Alcohol dependence. Aware. The patient states that she is not interested in stopping her alcohol consumption upon discharge. 5. Severe protein calorie malnutrition. Continue with Ensure with each meal. 6. Disposition. The patient does not have anyone to take care of her at home. Quality Improvement Consultant is following and we are working on a safe discharge plan for the patient. cc: Nyla Montenegro MD
[2017-03-11] MEDS: NORCO-5 PO PRN (18:50)
--- NOTE | 2017-03-11 18:55 | PROGRESS NOTE ---
DATE: 03/11/2017 SUBJECTIVE: I was contacted by the team as the patient reported abdominal pain and a single episode of emesis. However, when I went to the patient's bedside, she was sound asleep. On Saturday of last week, she stated that she did not want any further evaluation and plan to start drinking as soon as she returned home. OBJECTIVE: Vital signs: Reveals a blood pressure of 106/63, pulse 71, respiration 18, temperature of 97.7 degrees. Her been her exam was deferred. OBJECTIVE DATA: Reveals a hemoglobin of 11.4 with hematocrit of 34.7, and a white count of 6.97. She has 346,000 platelets. Sodium is 140, potassium 3.4, chloride 108, CO2 21, BUN 8, creatinine 0.5, with a glucose of 84. Calcium is 8.3, total bilirubin 0.46, AST 25, ALT 56 , alkaline phosphatase 196, total protein 4.6, albumin 1.9. IMPRESSIONS: 1. Nausea with vomiting. 2. Abdominal pain. 3. Long-standing ethanol abuse. 4. Recent gastrointestinal bleeding this admission, now stable. RECOMMENDATION: 1. In light of the patient's ongoing refusal for treatment, I recommend beginning physical therapy and rehab to allow the patient to return to her pre-illness physical activity. 2. With regard to the nausea with vomiting, I will check an abdominal ultrasound as well as amylase and lipase to determine the cause. 3. The patient has been extremely somnolent. Therefore, I recommend a urine tox screen to assess for substances that may account for her sleepiness. She may also benefit from a BAL to assess for blood alcohol. She has been usually somnolent this admission. If these are negative, she may need re-evaluation for metabolic encephalopathy. 4. I will also check an ammonia level today. 5. Regarding her disposition, her daughter has been admitted to [facility] with acute alcohol intoxication according to the nurses and the primary team. Her discharge will be somewhat difficult to plan as she lives alone with a daughter who cares for her. Therefore, I will defer to the primary team as far as her disposition and management. cc: MD Nyla Monreal MD MTDD
[2017-03-12] MEDS: CARAFATE LIQUID PO SCH ×6 (00:44→23:13)
[2017-03-12] MEDS: NORCO-5 PO PRN ×2 (01:43→19:38)
[2017-03-12 04:10] LABS: UR AMPHETAMINES QUAL NONE DETECTED (NONE DETECT); UR BARBITUATES QUAL NONE DETECTED (NONE DETECT); UR BENZODIAZEPIN QUAL PRESUMPTIVE POSITIVE (NONE DETECT); UR CANNABINOIDS QUAL NONE DETECTED (NONE DETECT); UR COCAINE QUAL NONE DETECTED (NONE DETECT); UR METHADONE QUAL NONE DETECTED (NONE DETECT); UR OPIATES QUAL PRESUMPTIVE POSITIVE (NONE DETECT); UR OXYCODONE QUAL NONE DETECTED (NONE DETECT); UR PCP QUAL NONE DETECTED (NONE DETECT)
[2017-03-12] MEDS: PRILOSEC PO SCH (06:07)
[2017-03-12 06:12] LABS: HEMATOCRIT 27.4 % (37.0-47.0); HEMOGLOBIN 8.8 g/dL (12.0-16.0); MCH 32.6 PG (27-31); MCHC 32.1 g/dL (33-37); MCV 101.5 FL (81-99); MPV 10.1 FL (7.4-10.4); RBC 2.7 XMIL (4.2-5.4)
[2017-03-12 06:16] LABS: AMYLASE 55 U/L (20-200); LIPASE 111 U/L (13-60)
[2017-03-12 06:28] LABS: AGAP 8; BUN 10 mg/dL (8-22); CALCIUM 8.3 mg/dL (8.8-10.2); CHLORIDE 111 mmol/L (98-107); COSMO 277; POTASSIUM 4.2 mmol/L (3.5-5.1); SODIUM 140 mmol/L (136-145); TCO2 21 mmol/L (25-35)
--- NOTE | 2017-03-12 08:25 | Diag Imaging Result Doc PS360 ---
EXAM: US ABDOMEN-COMPLETE INDICATION: n/v, abd pain, inc LFTs, ETOH COMPARISON: None. FINDINGS: There has been a previous cholecystectomy. The common bile duct is normal in diameter for postcholecystectomy status. There are incidental bilateral pleural effusions. The liver echotexture is perhaps very slightly increased suggesting possible mild hepatic steatosis. Portal venous flow is hepatopedal. The visualized pancreas is unremarkable. The aorta and IVC are grossly unremarkable. The spleen is unremarkable. The kidneys are grossly unremarkable. IMPRESSION: 1.Questionable mild increased liver echotexture suggesting mild hepatic steatosis. 2.Incidental bilateral pleural effusions. Electronically signed by Emilio Manuel 03/12/2017 8:23 AM
[2017-03-12] MEDS: SANTYL OINT TOP SCH (08:45)
--- NOTE | 2017-03-12 17:03 | PROGRESS NOTE ---
DATE: 03/12/2017 SUBJECTIVE: The patient is resting comfortably in bed. She has no complaints. OBJECTIVE: Vital Signs: Temperature 98.1 degrees, blood pressure 113/65, heart rate 66, respirations 18, O2 saturations 100% on 2 L nasal cannula. General: This is an elderly female, lying in bed, in no acute distress. Head: Normocephalic, atraumatic. Heart: S1, S2. Normal. Regular rate and rhythm. Lungs: Clear to auscultation bilaterally. Abdomen: Positive bowel sounds. Soft, nontender, nondistended. Extremities: No edema. No cyanosis. LABORATORY: Hemoglobin 8.8, hematocrit 27, platelets 279,000. Sodium 140, potassium 4.2, chloride 111, CO2 21, BUN 10, creatinine 0.6, lipase 111. ASSESSMENT AND PLAN: 1. Abdominal pain. The patient's lipase was slightly elevated. The patient has not been eating very much lately. The ultrasound done today reveals mild hepatic steatosis. GI is following. 2. Alcohol dependence. The patient has been counseled extensively about alcohol cessation. However she states that she will continue to drink alcohol upon discharge. 3. Severe debility with weakness. The patient is on maximum assist. Therefore she is not safe for discharge home by herself. 4. Severe protein calorie malnutrition. Continue with Ensure with each meal. 5. Liver cirrhosis. Aware. 6. Suspected GI bleed. The patient's hemoglobin and hematocrit has dropped. We will continue to trend this closely and transfuse p.r.n. 7. Disposition. Senior Case Manager and case management are working on a safe discharge plan for this patient. We will continue with physical therapy while hospitalized. cc: Nyla Montenegro MD
[2017-03-13] MEDS: NORCO-5 PO PRN ×3 (01:52→10:05)
[2017-03-13] MEDS: PRILOSEC PO SCH ×2 (05:33→06:28)
[2017-03-13] MEDS: CARAFATE LIQUID PO SCH ×4 (05:33→23:14)
[2017-03-13 06:09] LABS: HEMATOCRIT 29.4 % (37.0-47.0); HEMOGLOBIN 9.4 g/dL (12.0-16.0); MCH 32.5 PG (27-31); MCV 101.7 FL (81-99); MPV 10.4 FL (7.4-10.4); RBC 2.89 XMIL (4.2-5.4)
[2017-03-13 06:10] LABS: AGAP 7; ALBUMIN 1.7 g/dL (3.5-5.0); ALKALINE PHOSPHATASE 157 U/L (32-104); BUN 11 mg/dL (8-22); CHLORIDE 108 mmol/L (98-107); COSMO 274; GOT 25 U/L (10-30); GPT 48 U/L (10-36); LIPASE 111 U/L (13-60); POTASSIUM 4.4 mmol/L (3.5-5.1); SODIUM 138 mmol/L (136-145); TCO2 23 mmol/L (25-35); TOTAL BILIRUBIN 0.32 mg/dL (0.20-1.00); TOTAL PROTEIN 4.2 g/dL (6.3-8.3)
[2017-03-13] MEDS: TYLENOL PO PRN (06:22)
[2017-03-13] MEDS: SANTYL OINT TOP SCH (10:00)
[2017-03-13] MEDS: DULCOLAX PR SCH (10:00)
--- NOTE | 2017-03-13 10:11 | PROGRESS NOTE ---
DATE: 03/13/2017 SUBJECTIVE: The patient states that she is feeling significantly better. She is currently tolerating her diet. She notes intermittent left upper quadrant pain that radiates to the left middle quadrant. She associates this pain with constipation and states that she has not had a recent bowel movement. The nausea with vomiting has resolved. The severe epigastric pain has resolved. Overall, she is feeling significantly better. OBJECTIVE: Vital signs: Her blood pressure is 108/60, pulse 64, respirations 12, temperature of 98.1 degrees. Pulmonary: Lungs are clear to auscultation with normal expiratory effort. Cardiovascular Examination: Reveals regular rate and rhythm with no gallops or rubs. Abdominal Exam: Reveals normoactive bowel sounds. The abdomen is soft with no tenderness that I am able to elicit on exam today. OBJECTIVE DATA: Reveals a hemoglobin of 9.4 with hematocrit of 29.4, and a white count of 6.58. She has 301,000 platelets. Sodium is 138, potassium 4.4, chloride 108, CO2 of 23, BUN 11, creatinine 0.7, and glucose of 83. Her calcium is 8.0, total bilirubin 0.32, AST 25, ALT 48, alkaline phosphatase 152, total protein 4.2, and albumin 1.7. Her lipase is mildly elevated at 111. IMPRESSIONS: 1. Gastrointestinal bleed, resolved. 2. Abdominal pain, improved. 3. Constipation. 4. Abnormal liver function tests, improving. 5. Protein calorie malnutrition. 6. Long-standing ethanol abuse. RECOMMENDATION: 1. For the constipation, I recommend a Dulcolax suppository on a daily basis as needed. 2. With regard to her gastrointestinal bleeding, that appears to have resolved with minimal intervention. I would continue conservative management. 3. The patient has a longstanding history of alcohol abuse and has stated that she has no desire to stop drinking. Her liver function tests have been abnormal. An extensive evaluation has been done during this admission and previous admissions with no cause being found. Her abdominal ultrasound shows fatty liver. The levels are elevated but are improving. She has had autoimmune studies performed. However, I do not see an acute viral hepatitis profile. That will be ordered today. I recommend conservative management. 4. Overall, from a GI perspective, she is relatively stable. It is reasonable to consider outpatient management once her constipation resolves. cc: PeytonMD Nyla Chambers MD [facility] MEDICAL CENTERMarcella
--- NOTE | 2017-03-13 19:53 | PROGRESS NOTE ---
DATE: 03/13/2017 SUBJECTIVE: The patient is resting comfortably in bed. She is attempting to eat lunch, but states that she does not have an appetite and she has been having abdominal pain. OBJECTIVE: Vital Signs: Temperature 98.7 degrees, blood pressure 113/66, heart rate 66, respirations 16, O2 saturation 94% on room air. General: This is an elderly female lying in bed in no acute distress. Head: Normocephalic, atraumatic. Heart: S1, S2. Normal. Regular rate and rhythm. Lungs: Clear to auscultation bilaterally. No crackles. No rales. Abdomen: Positive bowel sounds. Soft, nontender, nondistended. Extremities: No edema. No cyanosis. Neurologic: The patient is alert oriented x3. LABORATORY: White blood cell count 6.5, hemoglobin 9.4, hematocrit 29, platelets 301,000. Sodium 138, potassium 4.4, chloride 108, CO2 23, BUN 11, creatinine 0.7, lipase 111, albumin 1.7. AST 25, ALT 48, alkaline phosphatase 157. ASSESSMENT AND PLAN: 1. Gastrointestinal bleed. Resolved. 2. Abdominal pain. Slowly improving. 3. Elevated liver function tests. Improved. 4. Alcoholism. The patient has been counseled extensively about alcohol cessation. 5. Severe debility with weakness. Continue with physical therapy. 6. Liver cirrhosis. Aware. 7. Disposition. services host is currently working on a discharge plan for the patient. Continue with physical therapy daily. cc: Nyla Montenegro MD
[2017-03-14 05:49] LABS: HEMATOCRIT 27.1 % (37.0-47.0); HEMOGLOBIN 8.8 g/dL (12.0-16.0); MCH 32.5 PG (27-31); MCHC 32.5 g/dL (33-37); MPV 10.1 FL (7.4-10.4); RBC 2.71 XMIL (4.2-5.4)
[2017-03-14 06:21] LABS: AGAP 7; ALBUMIN 1.7 g/dL (3.5-5.0); ALKALINE PHOSPHATASE 144 U/L (32-104); BUN 9 mg/dL (8-22); CALCIUM 8.2 mg/dL (8.8-10.2); CHLORIDE 110 mmol/L (98-107); COSMO 279; GOT 20 U/L (10-30); GPT 43 U/L (10-36); POTASSIUM 3.5 mmol/L (3.5-5.1); SODIUM 141 mmol/L (136-145); TCO2 24 mmol/L (25-35); TOTAL BILIRUBIN 0.38 mg/dL (0.20-1.00)
[2017-03-14] MEDS: NORCO-5 PO PRN ×3 (06:33→22:15)
[2017-03-14] MEDS: PRILOSEC PO SCH (06:33)
[2017-03-14] MEDS: CARAFATE LIQUID PO SCH ×4 (06:33→22:15)
[2017-03-14] MEDS: DULCOLAX PR SCH (08:58)
[2017-03-14] MEDS: SANTYL OINT TOP SCH (08:59)
[2017-03-14 09:47] LABS: HEPATITIS PROFILE ACUTE SEE COMMENTS
--- NOTE | 2017-03-14 13:44 | PROGRESS NOTE ---
DATE: 03/14/2017 SUBJECTIVE: The patient is resting comfortably in bed. She has no complaints at this time. OBJECTIVE: Vital Signs: Temperature is 98.6 degrees, blood pressure 117/71, heart rate 72, respirations 18, O2 saturation 100% on room air. General: This is an elderly female lying in bed in no acute distress. Head: Normocephalic, atraumatic. Heart: S1, S2. Normal. Regular rate and rhythm. Lungs: Clear to auscultation bilaterally. Abdomen: Positive bowel sounds. Soft, nontender, nondistended. Extremities: No edema. No cyanosis. No calf tenderness. Neurologic: The patient is alert and oriented x3. LABS: Reviewed. ASSESSMENT AND PLAN: 1. Gastrointestinal bleed. Resolved. 2. Abdominal pain. Improved. 3. Alcoholism. Aware. 4. Severe debility with generalized weakness. Continue with physical therapy. 5. Liver cirrhosis. Aware. 6. Disposition. Social service is currently waiting on a safe discharge plan for the patient. cc: Nyla Montenegro MD
[2017-03-14] MEDS: TYLENOL PO PRN (23:13)
[2017-03-15 06:32] LABS: HEMATOCRIT 26.8 % (37.0-47.0); HEMOGLOBIN 8.6 g/dL (12.0-16.0); MCH 32.2 PG (27-31); MCHC 32.1 g/dL (33-37); MCV 100.4 FL (81-99); MPV 10.1 FL (7.4-10.4); RBC 2.67 XMIL (4.2-5.4)
[2017-03-15] MEDS: PRILOSEC PO SCH (06:32)
[2017-03-15] MEDS: CARAFATE LIQUID PO SCH ×4 (06:32→23:21)
[2017-03-15 06:56] LABS: AGAP 6; ALBUMIN 1.8 g/dL (3.5-5.0); ALKALINE PHOSPHATASE 132 U/L (32-104); BUN 10 mg/dL (8-22); CALCIUM 7.8 mg/dL (8.8-10.2); CHLORIDE 109 mmol/L (98-107); COSMO 279; GOT 18 U/L (10-30); GPT 40 U/L (10-36); POTASSIUM 3.2 mmol/L (3.5-5.1); SODIUM 141 mmol/L (136-145); TCO2 26 mmol/L (25-35); TOTAL BILIRUBIN 0.35 mg/dL (0.20-1.00)
[2017-03-15] MEDS ORDERED: KLOR-CON PO ONE (07:01)
[2017-03-15] MEDS: SANTYL OINT TOP SCH (08:00)
[2017-03-15] MEDS: CALMOSEPTINE OINTMENT TOP PRN (09:46)
[2017-03-15] MEDS: DULCOLAX PR SCH (09:46)
[2017-03-15] MEDS: NORCO-5 PO PRN (22:48)
[2017-03-16] MEDS: NORCO-5 PO PRN ×2 (04:37→21:12)
[2017-03-16 05:42] LABS: HEMATOCRIT 28.1 % (37.0-47.0); HEMOGLOBIN 8.9 g/dL (12.0-16.0); MCH 31.9 PG (27-31); MCHC 31.7 g/dL (33-37); MCV 100.7 FL (81-99); RBC 2.79 XMIL (4.2-5.4)
[2017-03-16 06:02] LABS: AGAP 11; ALBUMIN 1.8 g/dL (3.5-5.0); ALKALINE PHOSPHATASE 138 U/L (32-104); BUN 10 mg/dL (8-22); CALCIUM 8.1 mg/dL (8.8-10.2); CHLORIDE 108 mmol/L (98-107); COSMO 282; GOT 16 U/L (10-30); GPT 40 U/L (10-36); MAGNESIUM 1.5 mg/dL (1.5-2.7); POTASSIUM 3.4 mmol/L (3.5-5.1); SODIUM 142 mmol/L (136-145); TCO2 23 mmol/L (25-35); TOTAL BILIRUBIN 0.34 mg/dL (0.20-1.00); TOTAL PROTEIN 4.4 g/dL (6.3-8.3)
[2017-03-16] MEDS: PRILOSEC PO SCH (06:18)
[2017-03-16] MEDS: CARAFATE LIQUID PO SCH ×4 (06:18→22:26)
[2017-03-16] MEDS ORDERED: KLOR-CON PO ONE (07:20)
[2017-03-16] MEDS ORDERED: MAGNESIUM SULFATE 2 GM/S.W.I. 2 GM/50 ML IVPB IV ONE (07:20)
[2017-03-16] MEDS: ZOFRAN ODT PO PRN ×2 (10:38→15:05)
[2017-03-16] MEDS: DULCOLAX PR SCH (10:42)
[2017-03-16] MEDS ORDERED: MAG-OX PO ONE (12:21)
[2017-03-16] MEDS: SANTYL OINT TOP SCH (12:59)
[2017-03-17] MEDS: CARAFATE LIQUID PO SCH ×3 (04:14→17:32)
[2017-03-17] MEDS: NORCO-5 PO PRN ×2 (04:14→14:34)
[2017-03-17] MEDS: PRILOSEC PO SCH (06:14)
[2017-03-17 06:23] LABS: AGAP 8; ALBUMIN 1.9 g/dL (3.5-5.0); BUN 11 mg/dL (8-22); CALCIUM 8.5 mg/dL (8.8-10.2); CHLORIDE 110 mmol/L (98-107); COSMO 284; MAGNESIUM 1.6 mg/dL (1.5-2.7); SODIUM 143 mmol/L (136-145); TCO2 25 mmol/L (25-35)
[2017-03-17 06:24] LABS: HEMATOCRIT 27.9 % (37.0-47.0); HEMOGLOBIN 8.8 g/dL (12.0-16.0); MCH 32.1 PG (27-31); MCHC 31.5 g/dL (33-37); MCV 101.8 FL (81-99); RBC 2.74 XMIL (4.2-5.4)
[2017-03-17] MEDS: DULCOLAX PR SCH (09:49)
[2017-03-17] MEDS: SANTYL OINT TOP SCH (10:08)
[2017-03-17] MEDS ORDERED: MAG-OX PO ONE (13:32)
[2017-03-18] MEDS: CARAFATE LIQUID PO SCH ×6 (00:18→23:21)
[2017-03-18] MEDS: NORCO-5 PO PRN ×2 (02:49→15:46)
--- NOTE | 2017-03-18 04:52 | PROGRESS NOTE ---
DATE: 03/15/2017 SUBJECTIVE: The patient is resting comfortably in bed. She has no complaints today. OBJECTIVE: Vital Signs: Temperature 98 degrees, blood pressure 109/66, heart rate 79, respirations 21, O2 saturations 100% on room air. General: This is a elderly female lying in bed in no acute distress. Head: Normocephalic, atraumatic. Heart: S1, S2. Normal. Regular rate and rhythm. Lungs: Clear to auscultation bilaterally. Abdomen: Positive bowel sounds. Soft, nontender, nondistended. Extremities: No edema. No cyanosis. No calf tenderness. Neurologic: The patient is alert and oriented x3. LABS: Hemoglobin 8.6, hematocrit 26, potassium 3.2, chloride 109, CO2 26, BUN 10, creatinine 0.6, alkaline phosphatase 132, total protein 4, albumin 1.8. ASSESSMENT AND PLAN: 1. Gastrointestinal bleed. Resolved. 2. Alcoholism. Aware. 3. Liver cirrhosis. Aware. 4. Severe debility with generalized weakness. Continue with physical therapy. 5. Disposition. manager creative services is working on a safe discharge plan. cc: Nyla Montenegro MD
--- NOTE | 2017-03-18 04:54 | PROGRESS NOTE ---
DATE: 03/16/2017 SUBJECTIVE: The patient is resting comfortably in bed. She has no complaints at this time. No acute events noted overnight. OBJECTIVE: Vital Signs: Temperature 97 degrees, blood pressure 135/81 heart rate 68, respirations 18, O2 saturation 100% on room air. General: This is an elderly female lying in bed in no acute distress. Head: Normocephalic, atraumatic. Heart: S1, S2. Normal. Regular rate and rhythm. Lungs: Clear injury bilaterally, no crackles, no rales. Abdomen: Positive bowel sounds. Soft, nontender, nondistended. Extremities: No edema. No cyanosis. Neurologic: The patient is awake and alert. LABS: White blood cell count 5, hemoglobin 8.9, hematocrit 28, platelets 328,000. Potassium 3.4, sodium 142, BUN 10, creatinine 0.7, albumin 1.8. ASSESSMENT AND PLAN: 1. Gastrointestinal bleed. Resolved. 2. Anemia of chronic disease. The patient's hemoglobin and hematocrit are stable. 3. Alcoholism. Aware. 4. Liver cirrhosis. Aware. 5. Severe debility with generalized weakness. Continue with physical therapy. 6. Disposition. Body Former and case management are working on a safe discharge plan for the patient. cc: Nyla Montenegro MD
--- NOTE | 2017-03-18 04:55 | PROGRESS NOTE ---
DATE: 03/17/2017 SUBJECTIVE: The patient is resting comfortably in bed. She has no complaints. OBJECTIVE: Vital Signs: Temperature 98 degrees, blood pressure 121/68, heart rate 74, respirations 18, O2 saturations 100% on room air. General: This is a elderly female lying in bed in no acute distress. Head: Normocephalic, atraumatic. Heart: S1, S2. Normal. Regular rate and rhythm. Lungs: Clear to auscultation bilaterally. No wheezes, no rales. No rhonchi. Abdomen: Positive bowel sounds. Soft, nontender, nondistended. Extremities: No edema. No cyanosis. No calf tenderness. Neurologic: The patient is alert and oriented. LABORATORY: Hemoglobin 8.8, hematocrit 27, platelets 333,000, potassium 4, BUN 11, creatinine 0.5, magnesium 1.6. ASSESSMENT AND PLAN: 1. Abdominal pain. Improved. 2. Gastrointestinal bleed. Resolved. 3. Alcoholism. Aware. 4. Liver cirrhosis. Aware. 5. Disposition. Assistant Paralegal is working on a discharge plan for the patient. cc: Nyla Montenegro MD MTDD
[2017-03-18 05:33] LABS: AGAP 7; ALBUMIN 1.8 g/dL (3.5-5.0); BUN 11 mg/dL (8-22); CHLORIDE 108 mmol/L (98-107); COSMO 280; MAGNESIUM 1.5 mg/dL (1.5-2.7); POTASSIUM 3.7 mmol/L (3.5-5.1); SODIUM 141 mmol/L (136-145); TCO2 26 mmol/L (25-35)
[2017-03-18 05:47] LABS: HEMATOCRIT 26.7 % (37.0-47.0); HEMOGLOBIN 8.5 g/dL (12.0-16.0); MCH 32.4 PG (27-31); MCHC 31.8 g/dL (33-37); MCV 101.9 FL (81-99); RBC 2.62 XMIL (4.2-5.4)
[2017-03-18] MEDS: PRILOSEC PO SCH (05:59)
[2017-03-18] MEDS: DULCOLAX PR SCH (09:15)
[2017-03-18] MEDS: SANTYL OINT TOP SCH (10:49)
[2017-03-18 13:54] LABS: BILIRUBIN URINE NEGATIVE (NEGATIVE); BLOOD URINE NEGATIVE (NEGATIVE); COLOR YELLOW; GLUCOSE URINE NEGATIVE (NEGATIVE); LEUKOCYTES URINE LARGE (NEGATIVE); NITRITE URINE NEGATIVE (NEGATIVE); PH URINE 8.5; PROTEIN URINE TRACE mg/dL (NEGATIVE); SP GRAVITY URINE 1.011; TURBIDITY URINE HAZY (CLEAR); UR EPITHELIAL CELLS >10 /HPF (<10); URINE BACTERIA 4+ /HPF; URINE MICRO REVIEW NEEDED? YES; URINE RBC <10 /HPF (<10); URINE SOURCE CLEAN CATCH; UROBILINOGEN URINE NORMAL (NORMAL)
[2017-03-18 14:03] LABS: URINE SMALL ROUND CELLS NONE SEEN
[2017-03-18] MEDS: KEFLEX PO SCH ×2 (15:46→21:51)
--- NOTE | 2017-03-18 18:04 | PROGRESS NOTE ---
DATE: 03/18/2017 SUBJECTIVE: The patient is resting comfortably in bed. She states that she wants to go home. The patient is unable to walk by herself. OBJECTIVE: Vital Signs: Temperature 98 degrees, blood pressure 116/72, heart rate 77, respirations 18, O2 saturation is 98% on room air. General: This is an elderly female, lying in bed, in no acute distress. Head: Normocephalic, atraumatic. Heart: S1, S2. Normal. Regular rate and rhythm. Lungs: Clear to auscultation bilaterally. Abdomen: Positive bowel sounds. Soft, NT, ND. Extremities: No edema. No cyanosis. No calf tenderness. Neurologic: The patient is awake and alert. LABS: White blood cell count 4.8, hemoglobin 8.5, hematocrit 26, Sodium 141, potassium 3.7, chloride 108, CO2 26, BUN 11, creatinine 0.5, glucose 80, magnesium 1.5, albumin 1.8. ASSESSMENT AND PLAN: 1. Abdominal pain. Improved. 2. Urinary tract infection. The urine culture is currently pending. We will start the patient on Keflex. 3. Hypomagnesemia. We will start the patient on scheduled magnesium by mouth. 4. Alcoholism. Aware. 5. Disposition. Case management and social insurance administrator are working on the a safe discharge plan for the patient. cc: Nyla Montenegro MD MTDD
[2017-03-18] MEDS: MAG-OX PO SCH (21:51)
[2017-03-19] MEDS: NORCO-5 PO PRN ×3 (03:35→15:41)
[2017-03-19 06:09] LABS: HEMOGLOBIN 8.2 g/dL (12.0-16.0); MCH 32.2 PG (27-31); MCHC 31.5 g/dL (33-37); MPV 9.8 FL (7.4-10.4); RBC 2.55 XMIL (4.2-5.4)
[2017-03-19 06:24] LABS: AGAP 8; ALBUMIN 1.8 g/dL (3.5-5.0); BUN 10 mg/dL (8-22); CALCIUM 8.1 mg/dL (8.8-10.2); CHLORIDE 110 mmol/L (98-107); COSMO 286; MAGNESIUM 1.5 mg/dL (1.5-2.7); POTASSIUM 3.5 mmol/L (3.5-5.1); SODIUM 144 mmol/L (136-145); TCO2 26 mmol/L (25-35)
[2017-03-19] MEDS: CARAFATE LIQUID PO SCH ×4 (06:36→22:06)
[2017-03-19] MEDS: PRILOSEC PO SCH (06:36)
[2017-03-19] MEDS: MAG-OX PO SCH ×2 (08:09→22:06)
[2017-03-19] MEDS: KEFLEX PO SCH ×2 (08:09→22:06)
[2017-03-19] MEDS: DULCOLAX PR SCH (08:10)
[2017-03-19] MEDS: ZOFRAN ODT PO PRN (23:54)
[2017-03-20] MEDS: NORCO-5 PO PRN ×2 (02:00→18:54)
[2017-03-20] MEDS: SANTYL OINT TOP SCH ×2 (02:01→08:05)
--- NOTE | 2017-03-20 03:46 | PROGRESS NOTE ---
DATE: 03/19/2017 SUBJECTIVE: The patient states that she is ready to go home today. OBJECTIVE: Vital Signs: Temperature 98 degrees, blood pressure 123/71, heart rate 67, respirations 16, O2 saturations 100% on room air. General: This is a elderly female sitting up in a chair in no acute distress. Head: Normocephalic, atraumatic. Heart: S1, S2. Normal. Regular rate and rhythm. Lungs: Clear to auscultation bilaterally. No wheezes, no rales. No rhonchi. Abdomen: Positive bowel sounds. Soft, nontender, nondistended. Extremities: No edema. No cyanosis. Neurologic: The patient is awake and alert but confused at times. LABS: Hemoglobin 8.2, hematocrit 26, platelets 337,000. Potassium 3.5, sodium 144, BUN 10, creatinine 0.6, magnesium 1.5. ASSESSMENT AND PLAN: 1. Abdominal pain. Improved. 2. Urinary tract infection. The urine culture is growing gram-negative rods. Will await the final identification of the organism. Continue on Keflex. 3. Hypomagnesemia. Will increase the oral magnesium supplementation. 4. Alcoholism. Aware. 5. Anemia. The patient's hemoglobin and hematocrit are slowly trending downward. We will continue to monitor this closely. 6. Disposition. The patient does not have a safe discharge plan at this time. support services coordinator is working on it. cc: Nyla Montenegro MD
[2017-03-20] MEDS: CARAFATE LIQUID PO SCH ×4 (05:44→23:55)
[2017-03-20] MEDS: PRILOSEC PO SCH ×2 (05:44→06:19)
[2017-03-20 06:12] LABS: HEMATOCRIT 25.6 % (37.0-47.0); MCH 32.1 PG (27-31); MCHC 31.3 g/dL (33-37); MCV 102.8 FL (81-99); MPV 9.9 FL (7.4-10.4); RBC 2.49 XMIL (4.2-5.4)
[2017-03-20 06:29] LABS: AGAP 9; ALBUMIN 1.9 g/dL (3.5-5.0); BUN 13 mg/dL (8-22); CALCIUM 7.9 mg/dL (8.8-10.2); CHLORIDE 107 mmol/L (98-107); COSMO 284; POTASSIUM 3.6 mmol/L (3.5-5.1); SODIUM 143 mmol/L (136-145); TCO2 27 mmol/L (25-35)
[2017-03-20] MEDS: MAG-OX PO SCH ×3 (08:05→21:53)
[2017-03-20] MEDS: DULCOLAX PR SCH ×2 (08:05→17:47)
[2017-03-20] MEDS: KEFLEX PO SCH ×3 (08:05→21:53)
[2017-03-20] MEDS: MIRALAX PO SCH ×3 (11:37→20:03)
--- NOTE | 2017-03-20 14:42 | PROGRESS NOTE ---
DATE: 03/20/2017 SUBJECTIVE: The patient is sitting up in bed. She states that she wants to go home. She has been having regular bowel movements and she is tolerating her diet. OBJECTIVE: Vital Signs: Temperature is 98.4 degrees, blood pressure 103/67, heart rate 71, respirations 16, O2 saturation is 100% on room air. General: This is a chronically ill- appearing, elderly female, sitting up in bed, in no acute distress. Heart: S1, S2. Normal. Regular rate and rhythm. Lungs: Clear to auscultation bilaterally. No wheezing. No rales. No rhonchi. Abdomen: Positive bowel sounds. Soft, nontender, nondistended. Extremities: The patient has multiple ecchymotic lesions on her arms and legs. No edema. No cyanosis. Neurologic: The patient is alert and oriented x3. LABS: White blood cell count 4.9, hemoglobin 8, hematocrit 25, platelets 360,000. Sodium 143, potassium 3.6, chloride 107, CO2 27, BUN 13, creatinine 0.5, glucose 85, magnesium 1.6, phosphorus 3.4, albumin 1.9. ASSESSMENT AND PLAN: 1. Urinary tract infection secondary to Escherichia coli and Proteus. Continue on Keflex. 2. Alcoholism. Aware. 3. Gastrointestinal bleed. The patient's hemoglobin and hematocrit are slowly trending downward. Will discuss with Dr. Martinez. We will also check stool for occult blood. 4. Anemia. Stool for occult blood has been ordered. The patient may require a transfusion. 5. Hypomagnesemia. Continue with oral magnesium supplementation. cc: Nyla Montenegro MD
[2017-03-21] MEDS: CARAFATE LIQUID PO SCH ×3 (04:22→17:25)
[2017-03-21] MEDS: PRILOSEC PO SCH ×2 (05:46→06:05)
[2017-03-21 06:30] LABS: AGAP 6; BUN 13 mg/dL (8-22); CALCIUM 8.3 mg/dL (8.8-10.2); CHLORIDE 111 mmol/L (98-107); COSMO 286; POTASSIUM 3.6 mmol/L (3.5-5.1); SODIUM 144 mmol/L (136-145); TCO2 27 mmol/L (25-35)
[2017-03-21 06:52] LABS: HEMATOCRIT 24.7 % (37.0-47.0); HEMOGLOBIN 7.7 g/dL (12.0-16.0); MCH 32.1 PG (27-31); MCHC 31.2 g/dL (33-37); MCV 102.9 FL (81-99); MPV 9.9 FL (7.4-10.4); RBC 2.4 XMIL (4.2-5.4)
[2017-03-21] MEDS: MAG-OX PO SCH ×2 (08:29→22:12)
[2017-03-21] MEDS: KEFLEX PO SCH ×2 (08:29→22:12)
[2017-03-21] MEDS: MIRALAX PO SCH ×2 (08:29→22:12)
[2017-03-21] MEDS: DULCOLAX PR SCH (11:17)
[2017-03-21] MEDS: ZOFRAN ODT PO PRN (14:34)
[2017-03-21] MEDS ORDERED: DILAUDID IV ONE ×2 (14:49→20:12)
--- NOTE | 2017-03-21 18:04 | PROGRESS NOTE ---
DATE: 03/21/2017 SUBJECTIVE: This patient is sitting up in bed. When I saw her, she was really anxious and she was almost crying. The problem is that she does not remember why she was confused upon admission and also she told me that she was drunk at that time. She is willing to quit drinking. Apparently, also her daughter was admitted this month at [facility] secondary to alcohol intoxication. Since she is really anxious today. I will start this patient on a low dose of Xanax and I will ask for physical therapy to work with her. OBJECTIVE: Vital Signs: Temperature 97.9, pulse 98, respiratory rate 18, blood pressure 116/69, oxygen saturation 99 on room air. HEENT: Head normocephalic. No trauma. PERRLA. Neck: Supple. No JVD. No masses. Central trachea. Chest: Clear to auscultation. No wheezing. No rales. Abdomen: Soft, nontender, nondistended. No hepatosplenomegaly. Extremities: This patient has multiple ecchymoses at the level of the arms and legs. No edema. No cyanosis. Neurological: The patient is alert and oriented x3. No focal deficits. Anxiety. LABORATORY: WBC 5.6, hemoglobin 7.7, hematocrit 24.7, platelets 371. Sodium 144, potassium 3.6, chloride 111, BUN 13, creatinine 0.5, glucose 84, calcium 8.3, albumin 2.0. ASSESSMENT AND PLAN: 1. Urinary tract infection secondary to E. coli and Proteus. Continue on Keflex. We will continue to monitor. 2. Gastrointestinal bleed. This patient's hemoglobin and hematocrit are slowly trending downward, I will check the hemoglobin and hematocrit again tomorrow and I will discuss the case with Dr. Martinez. Occult blood in the stool was ordered and it is negative. 3. Alcoholism. I had a really large conversation with this patient about alcohol. She states that she is not an alcoholic. She drinks twice or 3 times a week a low amount of alcohol and sometimes she gets drunk. 4. Anemia. Continue to monitor. 5. Hypomagnesemia. Magnesium today is 1.8. Will monitor. 6. Anxiety. I will start this patient on a low dose of Xanax. Will monitor. cc: Og Cervantes MD [facility]ITAL[facility]ella
[2017-03-21] MEDS: XANAX PO SCH (22:20)
[2017-03-22] MEDS: NORCO-5 PO PRN ×3 (00:20→12:19)
[2017-03-22] MEDS: CARAFATE LIQUID PO SCH ×5 (00:22→23:22)
[2017-03-22 05:28] LABS: HEMATOCRIT 25.8 % (37.0-47.0); MCH 32.4 PG (27-31); MCV 104.5 FL (81-99); MPV 9.6 FL (7.4-10.4); RBC 2.47 XMIL (4.2-5.4)
[2017-03-22 05:49] LABS: AGAP 6; ALBUMIN 2.1 g/dL (3.5-5.0); BUN 11 mg/dL (8-22); CALCIUM 8.4 mg/dL (8.8-10.2); CHLORIDE 107 mmol/L (98-107); COSMO 278; POTASSIUM 3.7 mmol/L (3.5-5.1); SODIUM 141 mmol/L (136-145); TCO2 28 mmol/L (25-35)
[2017-03-22] MEDS: XANAX PO SCH ×3 (06:04→21:25)
[2017-03-22] MEDS: PRILOSEC PO SCH (06:04)
[2017-03-22] MEDS: KEFLEX PO SCH ×2 (11:01→21:25)
[2017-03-22] MEDS: DULCOLAX PR SCH (11:02)
[2017-03-22] MEDS: MAG-OX PO SCH ×2 (11:02→21:25)
[2017-03-22] MEDS: MIRALAX PO SCH ×2 (11:03→21:25)
[2017-03-22] MEDS: SANTYL OINT TOP SCH (11:19)
--- NOTE | 2017-03-22 16:02 | PROGRESS NOTE ---
DATE: 03/22/2017 SUBJECTIVE: This patient states that she is feeling better. No acute events overnight. She does not look anxious today. OBJECTIVE: Vital Signs: Temperature 97.9 degrees, pulse 72, respiratory rate 20, blood pressure 103/59, oxygen saturation 99% on room air. HEENT: Head normocephalic. No trauma. PERRLA. Neck: Supple. No JVD. No masses. Central trachea. Chest: Clear to auscultation. No wheezing. No rales. Abdomen: Soft, nontender, nondistended. No hepatosplenomegaly. Extremities: Multiple ecchymoses at the level of the arms and legs. No edema. No cyanosis. Neurologic: The patient is alert and oriented x3. No focal neurological deficits. LABORATORY: WBC 6.3, hemoglobin 8, hematocrit 25.8, platelets 380,000. Sodium 141, potassium 3.7, chloride 107, bicarbonate 28, BUN 11, creatinine 0.6, glucose 59, calcium 8.4, albumin 2.1. ASSESSMENT AND PLAN: 1. Urinary tract infection secondary to Escherichia coli and Proteus. Continue on Keflex. We will continue to monitor. 2. Gastrointestinal bleed. This patient's hemoglobin and hematocrit are stable. Hemoccult is negative. 3. Alcoholism. I will continue with daily cessation education. This patient has been highly advised against alcohol abuse. 4. Macrocytic anemia. Continue to monitor. This is likely secondary to alcohol. B12 and folate are normal. 5. Anxiety. Continue with Xanax. She feels better today. cc: Og Cervantes MD
[2017-03-23] MEDS: NORCO-5 PO PRN ×4 (00:36→21:04)
[2017-03-23] MEDS: XANAX PO SCH ×3 (05:08→21:04)
[2017-03-23] MEDS: CARAFATE LIQUID PO SCH ×4 (05:09→23:00)
[2017-03-23 05:47] LABS: AGAP 8; ALBUMIN 2.1 g/dL (3.5-5.0); BUN 9 mg/dL (8-22); CHLORIDE 108 mmol/L (98-107); COSMO 285; POTASSIUM 3.8 mmol/L (3.5-5.1); SODIUM 143 mmol/L (136-145); TCO2 27 mmol/L (25-35)
[2017-03-23] MEDS: PRILOSEC PO SCH (06:00)
[2017-03-23] MEDS: MAG-OX PO SCH ×2 (10:06→21:03)
[2017-03-23] MEDS: KEFLEX PO SCH ×2 (10:06→21:04)
[2017-03-23] MEDS: MIRALAX PO SCH ×2 (10:07→21:04)
[2017-03-23] MEDS: DULCOLAX PR SCH (10:07)
--- NOTE | 2017-03-23 14:08 | PROGRESS NOTE ---
DATE: 03/23/2017 SUBJECTIVE: This patient states that she is feeling better. No acute events overnight. No anxiety. OBJECTIVE: Vital Signs: Temperature 98.5 degrees, pulse 77, respiratory rate 20, blood pressure 119/72, oxygen saturation 100% on room air. HEENT: Head normocephalic. No trauma. PERRLA. Neck: Supple. No JVD. No masses. Central trachea. Chest: Clear to auscultation. No wheezing. No rales. Abdomen: Soft, nontender, nondistended. No hepatosplenomegaly. Extremity: She has multiple ecchymoses at the level of the arms and legs. No edema. No cyanosis. Neurologic: The patient is alert and oriented x3. No focal neurological deficits. LABORATORY: Sodium 143, potassium 3.8, chloride 108, bicarbonate 27, BUN 9, creatinine 0.6, glucose 115, calcium 9, albumin 2.1. ASSESSMENT AND PLAN: 1. Urinary tract infection secondary to Escherichia coli and Proteus. Continue on Keflex. We will continue to monitor. 2. Gastrointestinal bleed. This patient hemoglobin and hematocrit has been stable. Hemoccult is negative. 3. Alcoholism. I will continue with daily cessation education. Patient has been highly advised against alcohol abuse. 4. Macrocytic anemia. Continue to monitor. This is likely secondary to alcohol abuse. B12 and folate are normal. 5. Anxiety. Continue with Xanax. She feels better. This patient is ready to be discharged but she cannot live by herself because she is still weak, she does not have insurance and for these reasons she cannot go to a rehab center or get physical therapy at home. Her daughter who lives with her she is hospitalized also in another facility. cc: Og Cervantes MD
[2017-03-24] MEDS: CARAFATE LIQUID PO SCH ×4 (05:32→20:10)
[2017-03-24] MEDS: PRILOSEC PO SCH ×2 (05:32→06:55)
[2017-03-24] MEDS: NORCO-5 PO PRN (05:32)
[2017-03-24] MEDS: XANAX PO SCH ×3 (05:33→20:11)
[2017-03-24] MEDS: MAG-OX PO SCH ×2 (09:45→20:11)
[2017-03-24] MEDS: KEFLEX PO SCH ×2 (09:45→20:10)
[2017-03-24] MEDS: CALMOSEPTINE OINTMENT TOP PRN (10:34)
[2017-03-24] MEDS: MIRALAX PO SCH ×2 (10:34→20:10)
[2017-03-24] MEDS: DULCOLAX PR SCH (10:36)
[2017-03-24] MEDS: SANTYL OINT TOP SCH (10:36)
--- NOTE | 2017-03-24 16:45 | PROGRESS NOTE ---
DATE: 03/24/2017 SUBJECTIVE: This patient is feeling better. No acute events overnight. No anxiety. OBJECTIVE: Vital Signs: Temperature 98.8 degrees, pulse 100, respiratory rate 18, blood pressure 100/62, oxygen saturation 96% on room air. HEENT: Head normocephalic. No trauma. PERRLA. Neck: Supple. No JVD. No masses. Central trachea. Chest: Clear to auscultation. No wheezing. No rales. Abdomen: Soft, nontender, nondistended. No hepatosplenomegaly. Extremity: She has multiple ecchymoses at the level of arms and legs. No edema. No clubbing. No cyanosis. Neurological: The patient is alert and oriented x3. No focal neurological deficits. LABORATORY: No laboratory work today. ASSESSMENT AND PLAN: 1. Urinary tract infection secondary to Escherichia coli and Proteus. Continue on Keflex. We will continue to monitor. 2. Gastrointestinal bleed. This patient's hemoglobin and hematocrit have been stable. Hemoccult is negative. I will monitor the hemoglobin and hematocrit tomorrow. 3. Alcoholism. I will continue with daily cessation education. Patient has been highly advised against alcohol abuse, apparently her daughter which is the one taking care of her is an alcoholic as well, and apparently she is hospitalized at [facility]. 4. Microcytic anemia. Continue to monitor. This is likely secondary to alcohol abuse. B12 and folate are normal. 5. Anxiety. Continue with Xanax. She feels better. 6. Physical deconditioning. Physical Therapy is on board. She is still weak. cc: Og Cervantes MD
[2017-03-24] MEDS: ZOFRAN ODT PO PRN (20:10)
[2017-03-25] MEDS: NORCO-5 PO PRN ×3 (01:25→18:49)
[2017-03-25] MEDS: CARAFATE LIQUID PO SCH ×5 (02:50→22:17)
[2017-03-25] MEDS: XANAX PO SCH ×2 (05:30→22:17)
[2017-03-25] MEDS: PRILOSEC PO SCH ×2 (05:30→06:42)
[2017-03-25] MEDS: MAG-OX PO SCH ×2 (08:15→22:17)
[2017-03-25] MEDS: KEFLEX PO SCH ×2 (08:15→22:17)
[2017-03-25] MEDS: DULCOLAX PR SCH (08:16)
[2017-03-25] MEDS: MIRALAX PO SCH ×2 (08:16→22:17)
--- NOTE | 2017-03-25 11:42 | PROGRESS NOTE ---
DATE: 03/25/2017 SUBJECTIVE: This patient states that she is feeling fine. She still has generalized weakness. No acute events overnight. No anxiety. OBJECTIVE: Vital Signs: Temperature 98.1 degrees, pulse 92, respiratory rate 16, blood pressure 120/58, oxygen saturation 100% on room air. HEENT: Head normocephalic. No trauma. PERRLA. Neck: Supple. No JVD. No masses. Central trachea. Chest: Clear to auscultation. No wheezing. No rales. Abdomen: Soft, nontender, nondistended. No hepatosplenomegaly. Extremities: She has multiple ecchymoses at the level of the arm and legs. No edema. No clubbing. No cyanosis. Neurological Examination: The patient is alert and oriented x3. No focal neurological deficits. Laboratory: No lab work done today. ASSESSMENT AND PLAN: 1. Urinary tract infection secondary to E. coli and Proteus. Continue on Keflex. We will continue to monitor. 2. Gastrointestinal bleed. This patient's hemoglobin and hematocrit have been stable. Hemoccult is negative. I will monitor the hemoglobin and hematocrit tomorrow. 3. Alcoholism. I will continue with daily cessation education. Patient has been highly advised against alcohol abuse. Apparently, her daughter, which is the one taking care of her, is an alcoholic as well. Apparently, she has been hospitalized at [facility]. 4. Macrocytic anemia. Continue to monitor. This is likely secondary to alcohol abuse. B12 and folate are normal. 5. Anxiety. Continue with Xanax but I will decrease the frequency. She will take Xanax just during one time during the night. Eventually, I will stop it. 6. Physical deconditioning. Continue physical therapy, although sometimes she is refusing physical therapy. cc: Og Cervantes MD
[2017-03-26] MEDS: PRILOSEC PO SCH (06:02)
[2017-03-26] MEDS: CARAFATE LIQUID PO SCH ×4 (06:02→23:25)
[2017-03-26] MEDS: NORCO-5 PO PRN ×4 (06:02→23:25)
[2017-03-26] MEDS: DULCOLAX PR SCH (08:08)
[2017-03-26] MEDS: KEFLEX PO SCH ×2 (08:08→20:01)
[2017-03-26] MEDS: MIRALAX PO SCH ×2 (08:08→20:01)
[2017-03-26] MEDS: MAG-OX PO SCH ×2 (08:08→20:01)
[2017-03-26] MEDS: SANTYL OINT TOP SCH (11:02)
--- NOTE | 2017-03-26 14:43 | PROGRESS NOTE ---
DATE: 03/26/2017 SUBJECTIVE: This patient states that she is feeling fine. She is still complaining of generalized weakness and mild abdominal discomfort. She has been asking for pain medication. No anxiety. OBJECTIVE: Vital Signs: Temperature 98 degrees, pulse 63, respiratory rate 20, blood pressure 128/69, oxygen saturation 100% on room air. HEENT: Head normocephalic. No trauma. PERRLA. Neck: Supple. No JVD. No masses. Central trachea. Chest: Clear to auscultation. No wheezing. No rales. Abdomen: Soft. Mild tenderness to palpation at the level of the right flank. Otherwise normal. Extremities: No edema. No clubbing. No cyanosis. Neurological: The patient is alert and oriented x3. No focal deficits. LABORATORY: No lab work done today. ASSESSMENT AND PLAN: 1. Urinary tract infection secondary to Escherichia coli and Proteus. Continue with Keflex. We will continue to monitor. 2. Gastrointestinal bleed. Hemoglobin and hematocrit are stable. Hemoccult is negative. Continue with the same management. 3. Alcoholism. I will continue with daily cessation education. Patient has been highly advised against alcohol abuse. Apparently her daughter which she is the 1 taking care of her is an alcoholic as well. Apparently she has been hospitalized at [facility]. 4. Macrocytic anemia. Continue to monitor. This is likely secondary to alcohol abuse. B12 and folate are normal. 5. Anxiety. I will continue with Xanax but only during the night. 6. Physical deconditioning. Continue with physical therapy. cc: Og Cervantes MD
[2017-03-26] MEDS: XANAX PO SCH (20:01)
[2017-03-27] MEDS: CARAFATE LIQUID PO SCH ×5 (04:27→23:47)
[2017-03-27 05:47] LABS: MANUAL DIFF NEEDED? NO
[2017-03-27] MEDS: PRILOSEC PO SCH (06:06)
[2017-03-27 06:13] LABS: BASO% 0.6 % (0.0-0.8); EOS# 0.27 X1000 (0.0-0.7); EOS% 5.3 % (0.0-10.0); HEMOGLOBIN 7.9 g/dL (12.0-16.0); LYMPH# 1.83 X1000 (1.2-3.4); MCH 30.6 PG (27-31); MCHC 30.4 g/dL (33-37); MCV 100.8 FL (81-99); MONO# 0.74 X1000 (0.11-0.59); MONO% 14.6 % (1.7-9.3); MPV 9.3 FL (7.4-10.4); NEUT% 43.5 % (42.2-75.2); PLT 361 X1000 (130-400); RBC 2.58 XMIL (4.2-5.4)
[2017-03-27 06:18] LABS: INR 0.98; PROTIME 10.3 Seconds (9.2-11.7); PTT 26.1 Seconds (22.0-36.0)
[2017-03-27 06:33] LABS: AGAP 10; BUN 11 mg/dL (8-22); CALCIUM 8.5 mg/dL (8.8-10.2); CHLORIDE 108 mmol/L (98-107); COSMO 287; POTASSIUM 4.2 mmol/L (3.5-5.1); SODIUM 145 mmol/L (136-145); TCO2 27 mmol/L (25-35)
[2017-03-27] MEDS ORDERED: XYLOCAINE-MPF 2% ONE ×2 (10:01)
[2017-03-27] MEDS ORDERED: DIPRIVAN 1% ONE (10:02)
[2017-03-27] MEDS ORDERED: KEFZOL 1 GM/D5W 1 GM/50 ML IVPB ONE (10:17)
[2017-03-27] MEDS ORDERED: NEO-SYNEPHRINE ONE (10:40)
[2017-03-27] MEDS ORDERED: HYDROGEN PEROXIDE SOLUTION ONE (10:43)
[2017-03-27] MEDS: DILAUDID ONE ×2 (11:22→11:28)
--- NOTE | 2017-03-27 11:41 | OPERATIVE NOTE ---
PROCEDURE DATE: 02/26/2017 PREOPERATIVE DIAGNOSIS: Necrotic wound, left hip. POSTOPERATIVE DIAGNOSIS: Necrotic wound, left hip. PROCEDURE: Debridement with anaerobic and aerobic cultures. Debridement was 7 x 5 x 2 cm. Wound VAC was deployed. The patient has brought to the operating room. After satisfactory induction of IV and LMA anesthesia, she was turned slightly onto her right side. Her left hip was prepped and draped. The thickened necrotic eschar was sharply excised with decompression of purulent material. Anaerobic and aerobic cultures were obtained. The wound margins were 7 x 5 x 2. The wound VAC was subsequently deployed. The patient was awakened and extubated in the operating room and transferred to recovery. ESTIMATED BLOOD LOSS: Around 10 mL. cc: Bhupendra Hwang MD
[2017-03-27] MEDS ORDERED: MORPHINE IV PRN (12:51)
[2017-03-27] MEDS ORDERED: ZOFRAN PO PRN (12:52)
[2017-03-27] MEDS ORDERED: NS 1,000 ML ONE (12:55)
[2017-03-27] MEDS: KEFLEX PO SCH (13:50)
[2017-03-27] MEDS: MAG-OX PO SCH ×2 (13:50→21:26)
[2017-03-27] MEDS: MIRALAX PO SCH ×2 (13:50→23:47)
[2017-03-27] MEDS: DULCOLAX PR SCH (13:51)
[2017-03-27] MEDS: KEFZOL 1 GM/D5W 1 GM/50 ML IVPB IV SCH ×2 (15:52→23:47)
[2017-03-27] MEDS: DEMEROL IV PRN ×2 (15:52→21:26)
--- NOTE | 2017-03-27 15:56 | CONSULTATION ---
DATE OF CONSULTATION: 03/27/2017 CONCLUSION: The patient is status post debridement of a left hip necrotic wound. This occurred when the patient fell on her hip and for some hours just laid on the hip. The patient's culture is pending. The Gram stain did show any bacteria. The patient's urine is growing Escherichia coli and Proteus. Either one or both of these organisms may be involved in the patient's necrotic hip wound in view of the fact that the patient was laying on her hip. She possibly urinated and this then might have gotten into her wound. RECOMMENDATIONS: I discontinued Keflex and placed the patient on cefazolin pending final culture results. DISCUSSION: The patient fell on her left hip. This was approximately a month ago. She was laying on her hip for an unspecified number of hours. She gradually developed an infection in there. It became necrotic, and she was admitted to the hospital. Dr. Hwang debrided the necrotic left hip wound in surgery. Cultures are pending from the wound and the Gram stain, as mentioned above did not show any bacteria. PAST MEDICAL HISTORY/REVIEW OF SYSTEMS: Eyes and ears: She denies difficulty hearing or seeing. Neck: No stiffness. Respiratory: No cough or shortness of breath. Cardiac: No chest pain or palpitations. GI: No nausea, vomiting, or diarrhea. : No dysuria or flank pain. Bones, joints, muscles: No joint pain or muscle aches. Endocrine: The patient is not a diabetic, and she does not have thyroid disease. LABORATORY STUDIES: The patient's laboratory study shows a CBC with a white count of 5080, hemoglobin 7.9 and platelet count 361,000. Creatinine was 0.6. GFR is greater than 60. Urine culture grew Escherichia coli and Proteus. Left hip gram stain showed no organisms and the culture is pending. HEALTH CARE COACH HISTORY: She is a 3, para 2, AB 1. She indicated to me that she had some sort of procedure done for what sounded like either cancer of the cervix or a precancerous lesion on the cervix. PREVIOUS HOSPITALIZATIONS AND OPERATIONS: She has had a gastric bypass. She has had some type of gynecological procedure for her cervix for what sounds like a precancerous lesion. Two labor and deliveries and one miscarriage. MEDICAL DISEASES: Anxiety, depression, and some type of cervical pathology, not sure exactly what it is. INFECTIOUS DISEASE HISTORY: Negative for pneumonia and UTI. FAMILY HISTORY: Positive for diabetes mellitus and hypertension. SOCIAL HISTORY: The patient lives in [place]. She drinks alcohol daily. She does not smoke or abuse drugs. She is . She lives with her daughter. The patient states that she is disabled. ALLERGIES: She has no known drug allergies. HOME MEDICATIONS: There are no home medications. PHYSICAL EXAMINATION: Vital Signs: Temperature is 98 degrees, pulse 67, respirations 15, blood pressure 140/76. Patient is 4 feet 11 inches tall and weighs 122 pounds. General: This is a somewhat malnourished-appearing, middle-aged female. She is in no acute distress. Head, eyes, ears, nose, and throat: She can hear my spoken words and see near objects. She is edentulous. Neck: No meningismus. Thorax: No increased AP diameter of the chest. Lungs: Clear to auscultation. Cardiovascular: Heart rate is regular. Peripheral pulses are diminished. Abdomen: Soft and nontender. Extremities: The patient has the VAC present on the left hip. There is some surrounding erythema around the VAC. Neurologic: Patient is alert. She can move her extremities. There is no tremor. Her sensation was intact to touch. Her memory, as regarding her medical history, was diminished. Thank you for the consult. cc: Shad Fink MD
--- NOTE | 2017-03-27 15:56 | PROGRESS NOTE ---
DATE: 03/27/2017 SUBJECTIVE: This patient states that she is feeling fine. Today she went to the OR to get a debridement with anaerobic and aerobic cultures of a necrotic wound of about 7 x 5 x 2, and a wound VAC was deployed. Also, some purulent material was removed. OBJECTIVE: Vital Signs: Temperature 97.5 degrees, pulse 67, respiratory rate 15, blood pressure 140/76, oxygen saturation 97% on room air. HEENT: Head normocephalic. No trauma. PERRLA. Neck: Supple. No JVD. No masses. Central trachea. Chest: Clear to auscultation. No wheezing. No rales. Abdomen: Soft, nontender, nondistended. No hepatosplenomegaly. Extremity: She has a new left hip dressing with a wound VAC in place. Neurological: The patient is alert and oriented x3. No focal deficits. LABORATORY: WBC 5, hemoglobin 7.9, hematocrit 26, platelets 361,000. Sodium 145, potassium 4.2, chloride 108, bicarbonate 27, BUN 11, creatinine 0.6, glucose 76, calcium 8.5. ASSESSMENT AND PLAN: 1. Urinary tract infection secondary to Escherichia coli and Proteus. Continue with Keflex. We will continue to monitor. 2. Gastrointestinal bleed. Hemoglobin and hematocrit are stable. Hemoccult is negative. Continue with the same management. 3. Left hip necrotic wound. Today she received a debridement with anaerobic and aerobic cultures, the wound size is around 7 x5 x 2 cm. A wound VAC was deployed and some purulent material was removed. 4. Alcoholism. I will continue with daily cessation education. This patient has been highly advised against alcohol abuse. Apparently her daughter which is the one taking care of her is an alcoholic as well. Apparently she has been hospitalized at [facility] secondary to recurrent pancreatitis. 5. Microcytic anemia. Continue to monitor. This is likely secondary to alcohol abuse. B12 and folate are normal. 6. Anxiety. She is getting Xanax, but only during the night. 7. Physical deconditioning. Continue with physical therapy. cc: Og Cervantes MD
[2017-03-27] MEDS: BENADRYL PO PRN ×2 (16:47→21:26)
[2017-03-27] MEDS: NORCO-10 PO PRN ×2 (16:48→23:52)
[2017-03-27] MEDS: PERIDEX MT SCH (21:26)
[2017-03-27] MEDS: XANAX PO SCH (21:26)
[2017-03-28] MEDS: PRILOSEC PO SCH ×2 (05:18→06:11)
[2017-03-28] MEDS: CARAFATE LIQUID PO SCH ×4 (05:18→23:40)
[2017-03-28 05:59] LABS: MANUAL DIFF NEEDED? NO
[2017-03-28 06:13] LABS: BASO% 0.5 % (0.0-0.8); EOS# 0.28 X1000 (0.0-0.7); EOS% 4.8 % (0.0-10.0); HEMATOCRIT 28.6 % (37.0-47.0); HEMOGLOBIN 8.8 g/dL (12.0-16.0); IMM GRAN# 0.02 X1000 (0.0-0.04); IMM GRAN% 0.3 % (0.0-0.5); LYMPH# 1.74 X1000 (1.2-3.4); LYMPH% 29.8 % (20.5-51.1); MCHC 30.8 g/dL (33-37); MCV 100.7 FL (81-99); MONO# 0.82 X1000 (0.11-0.59); MONO% 14.1 % (1.7-9.3); MPV 9.5 FL (7.4-10.4); NEUT% 50.5 % (42.2-75.2); PLT 388 X1000 (130-400); RBC 2.84 XMIL (4.2-5.4)
[2017-03-28 06:30] LABS: AGAP 10; BUN 9 mg/dL (8-22); CALCIUM 8.5 mg/dL (8.8-10.2); CHLORIDE 104 mmol/L (98-107); COSMO 279; POTASSIUM 3.8 mmol/L (3.5-5.1); SODIUM 141 mmol/L (136-145); TCO2 27 mmol/L (25-35)
[2017-03-28] MEDS: PERIDEX MT SCH ×2 (08:08→21:08)
[2017-03-28] MEDS: DULCOLAX PR SCH (08:08)
[2017-03-28] MEDS: ZOFRAN IV PRN (08:09)
[2017-03-28] MEDS: MAG-OX PO SCH ×2 (08:09→21:09)
[2017-03-28] MEDS: KEFZOL 1 GM/D5W 1 GM/50 ML IVPB IV SCH ×3 (08:10→23:40)
[2017-03-28] MEDS: DEMEROL IV PRN ×4 (11:55→17:47)
[2017-03-28] MEDS: NORCO-10 PO PRN ×3 (12:22→23:17)
[2017-03-28] MEDS: MIRALAX PO SCH ×2 (12:24→21:09)
[2017-03-28] MEDS: BENADRYL PO PRN ×2 (14:04→23:18)
[2017-03-28] MEDS: SANTYL OINT TOP SCH (14:35)
--- NOTE | 2017-03-28 16:09 | PROGRESS NOTE ---
DATE: 03/28/2017 SUBJECTIVE: This patient is not complaining of pain right now. Apparently she fell because she tried to go to the bedside commode but she did not hit her head and she is not complaining of pain for that. She went to the OR yesterday to get debridement of a necrotic wound located at the level of the left hip and she has a wound VAC that is working. OBJECTIVE: Vital Signs: Temperature 98.8 degrees, pulse 89, blood pressure 135/85, oxygen saturation 100% on room air. HEENT: Head normocephalic. No trauma. PERRLA. Neck: Supple. No JVD. No masses. Central trachea. Chest: Clear to auscultation. No wheezing. No rales. Abdomen: Soft, nontender, nondistended. No hepatosplenomegaly. Extremities: She has a new left hip dressing with a wound VAC in place. Neurological: She is alert and oriented x3. No deficits. LABORATORY: WBC 5.8, hemoglobin 8.8, hematocrit 28.6, platelets 388,000. Sodium 141, potassium 3.8, chloride 104, bicarbonate 27, BUN 9, creatinine 0.6, glucose 73, calcium 8.5. ASSESSMENT AND PLAN: 1. Left hip necrotic wound. Yesterday she received a debridement with anaerobic and aerobic cultures. The wound size is around 7 x 5 x 2 cm. Wound VAC is still in place and working, some purulent material was removed. Infectious Disease Department is following this patient and they placed this patient on antibiotics. 2. Urinary tract infection secondary to E. coli and Proteus. Continue with IV antibiotics as per Infectious Disease Department. 3. Gastrointestinal bleed. Hemoglobin and hematocrit are stable. Hemoccult is negative. Continue with the same treatment. 4. Alcoholism. I had a really large conversation today again about alcohol abuse with this patient, and she seems to understand that she has a problem with alcohol. She has been here 29 days without drinking and she says that she can handle that at home. I will continue with daily cessation education. 5. Macrocytic anemia. Continue to monitor. This is likely secondary to alcohol abuse. B12 and folate are normal. 6. Anxiety. She is getting but only during the night. 7. Physical deconditioning. Continue physical therapy. cc: Og Cervantes MD
--- NOTE | 2017-03-28 16:35 | PROGRESS NOTE ---
DATE: 03/28/2017 PRESENT ILLNESS: The patient is status post debridement of an infected left hip necrotic wound. Culture from the wound is growing a Gram-negative brit. The patient had urine which grew Escherichia coli and Proteus. MEDICATIONS: The patient is receiving Ancef 1 g IV every 8 hours. PHYSICAL EXAMINATION: Vital Signs: Temperature is 98.8 degrees, pulse 89, respirations 16, blood pressure 135/85. General: This is a small middle-aged female who is in no acute distress. Lungs: Clear to auscultation. Cardiovascular: Regular heart rate. Abdomen: Soft and nontender. Integument: There were multiple areas of dark reddish skin lesions on the arms and chest. Left hip: The VAC is in place. All the erythema there was around the VAC has almost completely cleared. LABORATORY AND X-RAY: CBC for today shows a white count of 5830, hemoglobin 8.8, and platelet count 388,000. The patient's wound is growing a gram-negative brit as mentioned above. There is no new radiographic study. ASSESSMENT AND PLAN: 1. The patient has an infected necrotic wound. The plan is to continue with Ancef pending culture results. 2. Comorbidities include anxiety and depression. Also the patient has had many falls and during this one, she was down on her hip for hours and it may be that she was incontinent of urine and the urine then ended up getting in the patient's left hip wound. cc: Shad Fink MD
[2017-03-28] MEDS: XANAX PO SCH (21:09)
[2017-03-29] MEDS ORDERED: ZYPREXA ZYDIS PO PRN (00:12)
[2017-03-29] MEDS ORDERED: ZYPREXA ZYDIS PO ONE (00:12)
[2017-03-29 05:56] LABS: MANUAL DIFF NEEDED? NO
[2017-03-29 06:07] LABS: BASO% 0.5 % (0.0-0.8); EOS# 0.15 X1000 (0.0-0.7); EOS% 3.7 % (0.0-10.0); HEMATOCRIT 25.6 % (37.0-47.0); HEMOGLOBIN 7.9 g/dL (12.0-16.0); IMM GRAN# 0.02 X1000 (0.0-0.04); IMM GRAN% 0.5 % (0.0-0.5); LYMPH# 1.57 X1000 (1.2-3.4); LYMPH% 38.6 % (20.5-51.1); MCH 31.2 PG (27-31); MCHC 30.9 g/dL (33-37); MCV 101.2 FL (81-99); MONO# 0.57 X1000 (0.11-0.59); MPV 9.3 FL (7.4-10.4); NEUT% 42.7 % (42.2-75.2); PLT 318 X1000 (130-400); RBC 2.53 XMIL (4.2-5.4)
[2017-03-29 06:19] LABS: AGAP 7; BUN 7 mg/dL (8-22); CALCIUM 8.3 mg/dL (8.8-10.2); CHLORIDE 110 mmol/L (98-107); COSMO 283; POTASSIUM 3.8 mmol/L (3.5-5.1); SODIUM 144 mmol/L (136-145); TCO2 27 mmol/L (25-35)
[2017-03-29] MEDS: CARAFATE LIQUID PO SCH ×4 (06:27→22:56)
[2017-03-29] MEDS: PRILOSEC PO SCH (06:27)
[2017-03-29] MEDS: KEFZOL 1 GM/D5W 1 GM/50 ML IVPB IV SCH ×3 (06:28→22:57)
[2017-03-29 06:35] LABS: PROTIME 10.5 Seconds (9.2-11.7)
[2017-03-29] MEDS ORDERED: NS 250 ML ONE (09:19)
[2017-03-29] MEDS: NORCO-10 PO PRN ×3 (10:08→18:42)
[2017-03-29] MEDS: MIRALAX PO SCH ×2 (10:11→22:51)
[2017-03-29] MEDS: PERIDEX MT SCH ×2 (10:12→22:56)
[2017-03-29] MEDS: MAG-OX PO SCH ×2 (10:12→22:56)
[2017-03-29] MEDS: DULCOLAX PR SCH (10:13)
[2017-03-29] MEDS: MORPHINE IV PRN ×3 (11:39→23:10)
--- NOTE | 2017-03-29 12:40 | PROGRESS NOTE ---
DATE: 03/29/2017 PRESENT ILLNESS: The patient is status post debridement of an infected and necrotic left hip wound. A culture from the wound is growing gram-negative brit. The patient's urine grew Escherichia coli and Proteus and one or both of those organisms may well be causing the patient's left hip wound infection. MEDICATION: The patient is on Ancef 1 g IV every 8 hours. She has been on antibiotics for her hip incision and drainage since she came in. She has had following surgery 2 days of antibiotics. PHYSICAL EXAMINATION: Vital Signs: Temperature is 98 degrees, pulse 86, respirations 14, blood pressure 123/73. Generally, this is a somewhat ill-appearing middle-aged female who is in no acute distress. Lungs clear to auscultation. Cardiovascular: Regular heart rate. Abdomen soft and nontender. The patient has a PICC in the left arm. The site is not erythematous or swollen. She also has a VAC present in the left hip which is where she had debridement of the wound which consisted of a lot of necrotic tissue. LAB AND X-RAY: CBC-WBC 4.04, hgb 7.9, platelets 318K. Creatinine 0.5. GFR->60. No new radiographic study. ASSESSMENT AND PLAN: The patient is status post debridement of a necrotic wound. The plan is to continue with Ancef pending identification and antibiotic susceptibility of the gram-negative brit growing from the patient's wound. COMORBIDITIES: The patient's comorbidities include depression. She has fallen in the past and this time fell and was on her hip for hours which undoubtedly caused her infection. cc: Shad Fink MD MTDD
--- NOTE | 2017-03-29 13:20 | PROGRESS NOTE ---
DATE: 03/29/2017 SUBJECTIVE: This patient is now complaining of left hip pain. She went to the OR a couple days ago to get debridement of a necrotic wound located at the level of the left hip. She has a wound VAC that is working fine. OBJECTIVE: Vital Signs: Temperature 98 degrees, pulse 86, respiratory rate 14, blood pressure 123/73, O2 saturation 96 on room air. HEENT: Head normocephalic. No trauma. PERRLA. Neck: Supple. No JVD. No masses. Central trachea. Chest: Clear to auscultation. No wheezing. No rales. Abdomen: Soft, nontender, nondistended. No hepatosplenomegaly. Extremities: She has a left hip dressing with a wound VAC in place. No edema, no cyanosis. Neurological examination: The patient is alert and oriented x3. No focal deficits. LABORATORY: WBC 4, hemoglobin 7.9, hematocrit 25.6, platelet 318. Sodium 144, potassium 3.8, chloride 110, bicarbonate 27, BUN 7, creatinine 0.5, glucose 73, calcium 8.3. ASSESSMENT AND PLAN: 1. Left hip necrotic wound. A couple days ago she received a debridement with anaerobic and aerobic cultures. So far one of the cultures showed gram-negative rods. Infectious disease is following this patient. 2. Urinary tract infection secondary to Escherichia coli and Proteus. This patient already received antibiotics. She is not complaining of burning sensation or any pain at the level of the suprapubic area. 3. Gastrointestinal bleed. Hemoglobin and hematocrit decreased a little bit, but Hemoccult is negative. Continue with the same treatment. 4. Alcoholism. This patient has been highly advised against alcohol abuse. We will continue with daily cessation education. 5. Macrocytic anemia. Continue to monitor. This is likely secondary to alcohol abuse. B 12 and folate are normal. 6. Anxiety. She is stable. She is getting Xanax, but just during the night. 7. Physical deconditioning. Continue physical therapy. cc: Og Cervantes MD
[2017-03-29] MEDS: XANAX PO SCH (22:56)
[2017-03-30] MEDS: NORCO-10 PO PRN ×2 (01:42→12:32)
[2017-03-30 06:11] LABS: HEMATOCRIT 25.7 % (37.0-47.0); HEMOGLOBIN 7.8 g/dL (12.0-16.0)
[2017-03-30] MEDS: PRILOSEC PO SCH (07:04)
[2017-03-30] MEDS: CARAFATE LIQUID PO SCH ×3 (07:04→21:38)
[2017-03-30] MEDS: PERIDEX MT SCH ×2 (09:49→21:24)
[2017-03-30] MEDS: MAG-OX PO SCH ×2 (09:49→21:24)
[2017-03-30] MEDS: MIRALAX PO SCH ×2 (09:49→21:24)
[2017-03-30] MEDS: DULCOLAX PR SCH (09:49)
[2017-03-30] MEDS: SANTYL OINT TOP SCH (09:51)
[2017-03-30] MEDS: ZOSYN 3.375 GM/NS 3.375 GM/50 ML IVPB IV SCH ×3 (10:05→21:24)
--- NOTE | 2017-03-30 14:49 | PROGRESS NOTE ---
DATE: 03/30/2017 SUBJECTIVE: This patient is still complaining of left hip pain. She went to the OR a few days ago to get debridement of a necrotic wound located at the level of the left hip. She has a wound VAC that is working fine. OBJECTIVE: Vital Signs: Temperature 98.7 degrees, pulse 80, respiratory rate 18, blood pressure 129/72, oxygen saturation 98 on room air. HEENT: Head normocephalic. No trauma. PERRLA. Neck: Supple. No JVD. No masses. Central trachea. Chest: Clear to auscultation. No wheezing. No rales. Abdomen: Soft, nontender, nondistended. No hepatosplenomegaly. Extremities: She has left hip dressing with a wound VAC in place. No edema, no cyanosis. Neurological examination: The patient is alert and oriented x3. No focal neurological deficits. LABORATORY: Hemoglobin 7.8, hematocrit 25.7. ASSESSMENT AND PLAN: 1. Left hip necrotic wound. A few days ago she received debridement. Cultures are showing Proteus penneri and Escherichia coli. Urine culture is showing Escherichia coli and Proteus mirabilis, all of them sensitive to Zosyn. We will continue with the same management. 2. Urinary tract infection, secondary to Escherichia coli and Proteus. Continue with antibiotics. 3. Gastrointestinal bleed. Hemoglobin and hematocrit decreased a little bit, but stable. We will continue to follow. 4. Alcoholism. This patient has been highly advised against alcohol abuse. We will continue with daily cessation education. 5. Macrocytic anemia. Continue to monitor. This is likely secondary to alcohol abuse. B 12 and folate are normal. 6. Anxiety. She is stable. Continue with Xanax nightly. 7. Physical deconditioning. Continue physical therapy. This patient is still complaining of left hip pain. I have switched the [place] 10 that she has been getting for Percocet. I will continue to monitor. cc: Og Cervantes MD
[2017-03-30] MEDS: PERCOCET-10 PO PRN ×2 (15:51→23:49)
[2017-03-30] MEDS: XANAX PO SCH (21:24)
[2017-03-30] MEDS: MORPHINE IV PRN (21:38)
[2017-03-31] MEDS: ZOSYN 3.375 GM/NS 3.375 GM/50 ML IVPB IV SCH ×4 (02:22→21:37)
[2017-03-31] MEDS: CARAFATE LIQUID PO SCH ×4 (02:23→19:11)
[2017-03-31] MEDS: MORPHINE IV PRN ×4 (05:13→21:27)
[2017-03-31] MEDS: PRILOSEC PO SCH (07:04)
[2017-03-31] MEDS: PERCOCET-10 PO PRN ×3 (07:05→19:11)
[2017-03-31] MEDS: PERIDEX MT SCH ×2 (08:10→21:27)
[2017-03-31] MEDS: DULCOLAX PR SCH (08:10)
[2017-03-31] MEDS: MAG-OX PO SCH ×2 (08:10→21:27)
[2017-03-31] MEDS: MIRALAX PO SCH ×2 (08:10→21:29)
[2017-03-31 08:53] LABS: BASO% 3.2 % (0.0-0.8); EOS# 0.26 X1000 (0.0-0.7); EOS% 4.1 % (0.0-10.0); HEMATOCRIT 27.1 % (37.0-47.0); HEMOGLOBIN 8.4 g/dL (12.0-16.0); LYMPH# 1.94 X1000 (1.2-3.4); LYMPH% 30.9 % (20.5-51.1); MANUAL DIFF NEEDED? NO; MCH 31.7 PG (27-31); MCV 102.3 FL (81-99); MONO# 0.89 X1000 (0.11-0.59); MONO% 14.2 % (1.7-9.3); MPV 9.2 FL (7.4-10.4); NEUT% 47.6 % (42.2-75.2); PLT 308 X1000 (130-400); RBC 2.65 XMIL (4.2-5.4)
[2017-03-31 09:09] LABS: AGAP 9; BUN 7 mg/dL (8-22); CALCIUM 8.8 mg/dL (8.8-10.2); CHLORIDE 104 mmol/L (98-107); COSMO 280; POTASSIUM 3.8 mmol/L (3.5-5.1); SODIUM 142 mmol/L (136-145); TCO2 29 mmol/L (25-35)
--- NOTE | 2017-03-31 15:20 | PROGRESS NOTE ---
DATE: 03/31/2017 SUBJECTIVE: This patient looks stable, she is complaining of mild to moderate left hip pain. She will go to the OR tomorrow for more debridement, she has a wound VAC that is working fine. OBJECTIVE: Vital Signs: Temperature is 98.3 degrees, pulse 79, respiratory rate 20, blood pressure 117/69, oxygen saturation 100% on room air. HEENT: Head normocephalic. No trauma. PERRLA. Neck: Supple. No JVD. No masses. Central trachea. Chest: Clear to auscultation. No wheezing. No rales. Abdomen: Soft, nontender, nondistended. No hepatosplenomegaly. Extremity: She has a left hip dressing with a wound VAC in place. No edema, no cyanosis. Neurological: The patient is alert and oriented x3. No focal deficits. LABORATORY: WBC 6.2, hemoglobin 8.7, hematocrit 27.1, platelets 308,000. Sodium 142, potassium 3.8, chloride 104, bicarbonate 29, BUN 7, creatinine 0.6, glucose 87, calcium 8.8. ASSESSMENT AND PLAN: 1. Left hip necrotic wound, she will go to the OR tomorrow for more debridement, surgery department is following this patient. Will continue with the antibiotics. 2. Urinary tract infection secondary to Escherichia coli and Proteus. Continue with antibiotics. 3. Gastrointestinal bleed. Hemoglobin and hematocrit is getting better, stable. Will continue to monitor. Hemoccult has been negative. 4. Alcoholism. This patient has been highly advised against abuse. Will continue with daily cessation education. She has been admitted before with the same problem. 5. Macrocytic anemia. Continue to monitor. This is likely secondary to alcohol abuse. B12 and folate are normal. 6. Anxiety stable. Continue with Xanax but I will decrease the dose of Xanax from 0.25 mg at night to 0.125. 7. Physical deconditioning. Continue with physical therapy. cc: Og Cervantes MD
[2017-03-31] MEDS: XANAX PO SCH (21:36)
[2017-04-01] MEDS: CARAFATE LIQUID PO SCH ×4 (04:28→18:07)
[2017-04-01] MEDS: ZOSYN 3.375 GM/NS 3.375 GM/50 ML IVPB IV SCH ×4 (04:47→22:00)
[2017-04-01 06:31] LABS: MANUAL DIFF NEEDED? NO
[2017-04-01 07:05] LABS: AGAP 7; BUN 8 mg/dL (8-22); CALCIUM 8.9 mg/dL (8.8-10.2); CHLORIDE 107 mmol/L (98-107); COSMO 282; POTASSIUM 4.2 mmol/L (3.5-5.1); SODIUM 143 mmol/L (136-145); TCO2 29 mmol/L (25-35)
[2017-04-01 07:35] LABS: BASO% 0.4 % (0.0-0.8); EOS# 0.16 X1000 (0.0-0.7); EOS% 3.4 % (0.0-10.0); HEMATOCRIT 27.1 % (37.0-47.0); HEMOGLOBIN 8.4 g/dL (12.0-16.0); LYMPH% 31.4 % (20.5-51.1); MCH 32.2 PG (27-31); MCV 103.8 FL (81-99); MONO# 0.75 X1000 (0.11-0.59); MONO% 15.7 % (1.7-9.3); MPV 9.4 FL (7.4-10.4); NEUT% 49.1 % (42.2-75.2); PLT 325 X1000 (130-400); RBC 2.61 XMIL (4.2-5.4)
[2017-04-01] MEDS: PRILOSEC PO SCH (07:57)
[2017-04-01] MEDS ORDERED: DIPRIVAN 1% ONE (09:35)
[2017-04-01] MEDS ORDERED: XYLOCAINE-MPF 2% ONE (09:36)
[2017-04-01] MEDS ORDERED: KEFZOL ONE (10:02)
[2017-04-01] MEDS ORDERED: MURI-LUBE MINERAL OIL ONE (10:03)
--- NOTE | 2017-04-01 10:13 | PROGRESS NOTE ---
DATE: 04/01/2017 SUBJECTIVE: This patient looks stable. She is going today to the OR for more debridement of the right hip wound. She has a wound VAC that is working fine. As per the nurse, she slept the whole night, and she is not asking for pain medication. OBJECTIVE: Vital Signs: Temperature 98.2, pulse 84, respiratory rate 17, blood pressure 117/74, oxygen saturation 98 on room air. HEENT: Head normocephalic. No trauma. PERRLA. Neck: Supple. No JVD. No masses. Central trachea. Chest: Clear to auscultation. No wheezing. No rales. Abdomen: Soft, nontender, nondistended. No hepatosplenomegaly. Extremities: She has a left hip dressing with a wound VAC in place. No edema. No cyanosis. Neurological: The patient is alert and oriented x3. No focal deficits. LABORATORY: WBC 4.7, hemoglobin 8.4, hematocrit 27.1, platelets 325. Sodium 143, potassium 4.2, chloride 107, bicarbonate 29, BUN 8, creatinine 0.6, glucose 75, calcium 8.9. ASSESSMENT AND PLAN: 1. Left hip necrotic wound. She will go to the OR today for more debridement. Surgery department is following this patient closely. She has a wound VAC. 2. Urinary tract infection secondary to E. coli and Proteus, continue with antibiotics. 3. Gastrointestinal bleed. Hemoglobin and hematocrit are stable. We will continue to monitor. Hemoccult has been negative. 4. Alcoholism. This patient has been highly advised against alcohol abuse. We will continue with daily cessation education. She has been admitted before with the same problem and apparently she has been talking to the nurses and telling them that she is planning to continue drinking. 5. Macrocytic anemia. Continue to monitor. This is likely secondary to alcohol abuse. B12 and folate are normal. 6. Anxiety, stable. Continue with Xanax, that was decreased from 0.25 mg at night to 0.125. Will continue to monitor. 7. Physical deconditioning. Continue physical therapy. cc: Og Cervantes MD
[2017-04-01] MEDS ORDERED: ZOFRAN ONE (10:46)
[2017-04-01] MEDS ORDERED: DECADRON ONE (10:46)
[2017-04-01] MEDS ORDERED: FENTANYL ONE (10:49)
[2017-04-01] MEDS: DILAUDID ONE ×2 (11:29→11:37)
[2017-04-01] MEDS ORDERED: DILAUDID ONE (11:53)
[2017-04-01] MEDS ORDERED: ATROPINE ONE (12:06)
[2017-04-01] MEDS ORDERED: NEO-SYNEPHRINE ONE (12:06)
[2017-04-01] MEDS: MORPHINE IV PRN ×3 (13:04→22:07)
[2017-04-01] MEDS: MIRALAX PO SCH ×2 (13:04→22:00)
[2017-04-01] MEDS: DULCOLAX PR SCH (13:05)
[2017-04-01] MEDS: PERIDEX MT SCH ×2 (13:05→22:00)
[2017-04-01] MEDS: SANTYL OINT TOP SCH ×2 (13:05→13:06)
[2017-04-01] MEDS: PERCOCET-10 PO PRN (14:18)
[2017-04-01] MEDS: ZOFRAN IV PRN (14:22)
[2017-04-01] MEDS: MAG-OX PO SCH ×2 (14:22→22:00)
[2017-04-01] MEDS ORDERED: SODIUM CHLORIDE 0.9% INJ PRN (15:04)
[2017-04-01] MEDS ORDERED: TRANSDERM-SCOP TD ONE (15:05)
[2017-04-01] MEDS: PHENERGAN IV PRN (15:57)
--- NOTE | 2017-04-01 16:38 | OPERATIVE NOTE ---
PROCEDURE DATE: 04/01/2017 PREOPERATIVE DIAGNOSIS: Chronic wound left hip, status post debridement, with wound vacuum assisted closure. PROCEDURE: Wound vacuum assisted closure removal, split-thickness graft from donor site right thigh, replacement of wound VAC. SURGEON: Bhupendra Hwang MD DESCRIPTION OF PROCEDURE: The patient has brought to the operating room. After satisfactory induction of IV and LMA anesthesia, her right and left thighs were prepped and draped in the appropriate manner after wound VAC removal. There was good granulation tissue in the chronic wound. It was measured out to be 7 x 4 x 1 cm. The split-thickness graft was taken from the right thigh meshed to 1 to 1.5 and tacked down with stainless steel clips. The area was covered nicely. Margins again were 7 x 4 x 1 cm. Mepitel and a fresh wound VAC were redeployed. A satisfactory seal was obtained. The thigh on the right side underwent Xeroform gauze and Kerlix. The patient was subsequently awakened and extubated in the operating room and transferred to recovery. ESTIMATED BLOOD LOSS: Around 10 mL. cc: Bhupendra Hwang MD
--- NOTE | 2017-04-01 16:52 | PROGRESS NOTE ---
DATE: 04/01/2017 PRESENT ILLNESS: Patient is status post debridement of her infected and necrotic left hip. Dr. Cervantes' note indicates that she will be undergoing another debridement today. Cultures from the hip and the urine are growing Escherichia coli and Proteus. The Proteus in the 2 wounds is by different species of Proteus. MEDICATIONS: The patient is receiving Zosyn as the antibiotic. PHYSICAL EXAMINATION: Vital Signs: Temperature is 98.7 degrees, pulse 82, respirations 19, blood pressure 148/95. General: This is an ill-appearing, middle-aged female who is in no acute distress. Lungs: Clear to auscultation. Cardiovascular: Regular heart rate. Abdomen: Soft and nontender. Extremities: The patient's left hip has the VAC in place. There is no erythema. The area is not swollen and it was not tender. LAB AND X-RAY: Today the patient's CBC showed a white count of 4,770, hemoglobin 8.4, and platelet count 325,000. Creatinine is 0.6. GFR is greater than 60. ASSESSMENT AND PLAN: The patient is status post debridement of a necrotic wound. She has the VAC in place and we are giving her antibiotics. Patient's comorbidities include depression. The patient also fell and was down for hours. There also is a history of alcoholism. cc: Shad Fink MD
[2017-04-01] MEDS: XANAX PO SCH (22:00)
[2017-04-02] MEDS: PERCOCET-10 PO PRN ×2 (00:04→06:04)
[2017-04-02] MEDS: CARAFATE LIQUID PO SCH ×5 (00:04→18:03)
[2017-04-02] MEDS: MORPHINE IV PRN ×2 (02:53→08:05)
[2017-04-02] MEDS: ZOSYN 3.375 GM/NS 3.375 GM/50 ML IVPB IV SCH ×5 (04:28→22:07)
[2017-04-02] MEDS: PRILOSEC PO SCH (06:04)
[2017-04-02 06:11] LABS: MANUAL DIFF NEEDED? NO
[2017-04-02 06:30] LABS: BASO% 0.2 % (0.0-0.8); EOS# 0.01 X1000 (0.0-0.7); EOS% 0.2 % (0.0-10.0); HEMATOCRIT 24.3 % (37.0-47.0); HEMOGLOBIN 7.4 g/dL (12.0-16.0); LYMPH# 1.22 X1000 (1.2-3.4); LYMPH% 21.2 % (20.5-51.1); MCH 30.8 PG (27-31); MCHC 30.5 g/dL (33-37); MCV 101.3 FL (81-99); MONO% 15.7 % (1.7-9.3); MPV 9.7 FL (7.4-10.4); NEUT% 62.7 % (42.2-75.2); PLT 301 X1000 (130-400)
[2017-04-02 06:40] LABS: AGAP 9; BUN 11 mg/dL (8-22); CALCIUM 8.5 mg/dL (8.8-10.2); CHLORIDE 103 mmol/L (98-107); COSMO 282; POTASSIUM 4.2 mmol/L (3.5-5.1); SODIUM 141 mmol/L (136-145); TCO2 29 mmol/L (25-35)
[2017-04-02] MEDS: MAG-OX PO SCH ×2 (08:01→22:08)
[2017-04-02] MEDS: PERIDEX MT SCH ×2 (08:02→22:08)
[2017-04-02] MEDS: MIRALAX PO SCH ×2 (08:02→22:07)
[2017-04-02] MEDS: DULCOLAX PR SCH (08:06)
[2017-04-02] MEDS ORDERED: NS 250 ML IV ONE (11:48)
[2017-04-02] MEDS: TORADOL PO PRN ×2 (12:43→18:57)
--- NOTE | 2017-04-02 14:22 | PROGRESS NOTE ---
DATE: 04/02/2017 SUBJECTIVE: Patient reports feeling fine. Reports mild pain in both hips 1 from the changing the wound VAC in left hip and the other right hip because of the graft that was taken off from. Denies any fever, chills. OBJECTIVE: Vital Signs: Temperature 98.3 degrees, heart rate 58, respiratory 20, blood pressure 112/63, O2 saturation 100% on room air. General: This is a chronically ill-looking and definitely looking older than her age 61-year-old female lying in bed in no acute distress. HEENT: Head is normocephalic, atraumatic. Anicteric sclerae and pale conjunctivae. Mucous membranes moist. Neck: Supple. No JVD noted. No carotid bruits. No lymphadenopathy. No thyromegaly. Cardiovascular: S1 and S2 heard. No murmurs, gallops, or rubs. Regular rate and rhythm. Respiratory: Clear bilaterally to auscultation. No wheezing or crackles noted. The patient is not using any accessory muscles or having work of breathing. Abdomen: Soft, nontender to palpation. Bowel sounds present. No organomegaly. Extremities: No clubbing, cyanosis, or edema. Peripheral pulses present in both legs. Neurological: Patient alert oriented x3. Able to move 4 extremities. No clubbing, cyanosis, edema. She had a left hip dressing with a wound VAC in place. No edema, no cyanosis. Neurological exam: Patient alert, oriented x3. Moves 4 extremities. LABORATORY DATA: White cell count 5.75, hemoglobin 7.4, hematocrit 23.3, platelets 301,000. BMP unremarkable. ASSESSMENT AND PLAN: 1. Left hip necrotic wound status post wound vacuum-assisted closure change. Dr. Hwang following this patient. Will follow his recommendations. 2. Proteus urinary tract infection. Will continue with Zosyn. Dr. Fink from infectious disease is following this patient. 3. Gastrointestinal bleed. Hemoglobin and hematocrit has dropped a little bit so if tomorrow hemoglobin is around 7 or less we are going to transfuse 2 units of blood. 4. Chronic alcoholism. As per previous note patient has been extensively advised about quitting alcohol abuse but apparently nurses were notified this patient is going to continue drinking. 5. Microcytic anemia most likely secondary to alcohol abuse. Will continue with the same management. 6. Anxiety. Patient is on Xanax. Will continue with the same dose of medication. 7. Physical deconditioning. Will continue with physical therapy and she may need to go to rehab facility. cc: Grayson Razo MD
--- NOTE | 2017-04-02 18:18 | PROGRESS NOTE ---
DATE: 04/02/2017 PRESENT ILLNESS: The patient yesterday had a skin graft removed from the right hip and put over the patient's left hip wound. MEDICATIONS: The patient continues to receive Zosyn as a single antibiotic. PHYSICAL EXAMINATION: Vital Signs: Temperature is 98.3 degrees, pulse is 70, respirations 20, blood pressure 124/70. General: This is a somewhat ill-appearing, middle-aged female. She is in no acute distress. Lungs: Clear to auscultation. Cardiovascular: Heart rate was regular. Abdomen: Soft and nontender. Extremities: The patient's right hip wound where the skin was removed has a dressing around it. It is intact. The patient's left hip where the graft was placed has the VAC in place. There is no erythema noted. LAB AND X-RAY: The CBC for today shows a white count of 5750, hemoglobin 7.4 and platelet count 301,000. Creatinine is 0.6. GFR is greater than 60. ASSESSMENT AND PLAN: The patient is status post debridement and skin grafting of her necrotic left hip wound. The VAC has been placed back on. COMORBIDITIES: Include depression and a history of alcoholism and the fact that when she fell on her hip she was down for hours. cc: Shad Fink MD
[2017-04-02] MEDS: XANAX PO SCH (22:07)
[2017-04-02] MEDS: OFIRMEV 1000 MG/ISOTONIC SOLN 1,000 MG/100 ML BOTTLE IV SCH (22:08)
[2017-04-03] MEDS: CARAFATE LIQUID PO SCH ×4 (03:27→20:41)
[2017-04-03] MEDS: ZOSYN 3.375 GM/NS 3.375 GM/50 ML IVPB IV SCH ×5 (04:42→22:29)
[2017-04-03] MEDS: OFIRMEV 1000 MG/ISOTONIC SOLN 1,000 MG/100 ML BOTTLE IV SCH ×3 (04:42→20:42)
[2017-04-03] MEDS: PRILOSEC PO SCH (06:47)
[2017-04-03] MEDS: DULCOLAX PR SCH (09:02)
[2017-04-03] MEDS: MIRALAX PO SCH ×2 (09:02→20:46)
[2017-04-03] MEDS: TORADOL PO PRN ×3 (09:07→20:41)
[2017-04-03] MEDS: MAG-OX PO SCH ×2 (09:07→20:41)
[2017-04-03] MEDS: PERIDEX MT SCH ×2 (09:08→20:41)
[2017-04-03 09:10] LABS: MANUAL DIFF NEEDED? NO
--- NOTE | 2017-04-03 09:15 | PROGRESS NOTE ---
DATE: 05/04/2017 SUBJECTIVE: Patient reports feeling fine. Pain in both hips and mostly in the left where they placed the wound VAC yesterday. She reports that with the change in her pain medication she is feeling much better. She denies any fever or chills. OBJECTIVE: Vital Signs: Temperature 98.4 degrees, heart rate 68, respiratory rate 16, blood pressure 123/63, O2 saturation 97% on room air. General: This is a chronically ill-looking, frail-looking, older than her age, 61-year-old female lying in bed, in no acute distress. HEENT: Head is normocephalic, atraumatic. Anicteric sclerae and pale conjunctivae. Mucous membranes moist. Neck: Supple. No JVD noted. No carotid bruits. No lymphadenopathy. No thyromegaly. Cardiovascular: S1, S2 heard. No murmurs, gallops, or rubs. Regular rate and rhythm. Respiratory: Clear bilaterally to auscultation. No work of breathing or using accessory muscles. Abdomen: Soft. Nontender to palpation. Bowel sounds present. No organomegaly. Extremities: No clubbing, cyanosis, or edema. Peripheral pulses present in both legs. Neurological: Patient is alert and oriented x3. Able to move 4 extremities. LABORATORY DATA: Pending. ASSESSMENT AND PLAN: 1. Left hip necrotic wound status post wound VAC placed. Dr. Hwang is following this patient from General Surgery. We will follow his recommendations. 2. Proteus mirabilis urinary tract infection. Patient is on Zosyn. Dr. Fink from infectious disease is following this patient. 3. Gastrointestinal bleeding. The hemoglobin and hematocrit has dropped to 7.4 today and the CBC is pending from today. If that is close to 7 or below we are going to transfuse 2 units of blood. 4. Chronic alcoholism. The patient advised to stopped drinking alcohol. 5. Macrocytic anemia. Most likely related to alcohol abuse. Will continue with the same management. 6. Anxiety. Patient is on Xanax. Will continue with the same management. 7. Physical deconditioning. The patient reports that she was trying to get up and tried to walk around but she is so weak. So we are going to consult physical therapy, but most likely she will need to go to a rehab facility. cc: Grayson Razo MD
[2017-04-03 09:24] LABS: BASO% 0.5 % (0.0-0.8); EOS# 0.13 X1000 (0.0-0.7); EOS% 2.2 % (0.0-10.0); HEMATOCRIT 36.4 % (37.0-47.0); HEMOGLOBIN 11.7 g/dL (12.0-16.0); LYMPH# 1.76 X1000 (1.2-3.4); MCH 30.9 PG (27-31); MCHC 32.1 g/dL (33-37); MONO# 0.75 X1000 (0.11-0.59); MONO% 12.8 % (1.7-9.3); MPV 9.6 FL (7.4-10.4); NEUT% 54.5 % (42.2-75.2); PLT 292 X1000 (130-400); RBC 3.79 XMIL (4.2-5.4)
[2017-04-03 10:11] LABS: AGAP 10; BUN 9 mg/dL (8-22); CALCIUM 8.8 mg/dL (8.8-10.2); CHLORIDE 105 mmol/L (98-107); COSMO 280; POTASSIUM 3.8 mmol/L (3.5-5.1); SODIUM 142 mmol/L (136-145); TCO2 27 mmol/L (25-35)
[2017-04-03] MEDS: SANTYL OINT TOP SCH (10:49)
--- NOTE | 2017-04-03 16:07 | Diag Imaging Result Doc PS360 ---
EXAM: HEAD W/O CONTRAST HISTORY: non reactive left pupil TECHNIQUE: CT brain without. Dose reduction protocol. COMPARISON: None. FINDINGS: No parenchymal hemorrhage. No epidural or subdural hematoma. No subarachnoid hemorrhage. No mass identified on this noncontrasted exam. No hydrocephalus. Mild atrophy. No sinus opacification. IMPRESSION: No hemorrhage. No change since the prior exam. Electronically signed by Jm Brink 04/03/2017 4:04 PM
--- NOTE | 2017-04-03 16:50 | PROGRESS NOTE ---
DATE: 04/03/2017 PRESENT ILLNESS: The patient has had debridement of a necrotic left hip wound. This is been followed by placement of a split-thickness skin graft, all done by Dr. Hwang. MEDICATIONS: Patient is on day 4 of treatment with Zosyn. PHYSICAL EXAMINATION: Vital Signs: The temperature is 98.5 degrees, pulse 68, respirations 14, blood pressure 181/90. General: This is a somewhat ill-appearing, middle-aged female. She is in no acute distress. Cardiovascular: Heart rate is regular. Lungs: Clear to auscultation. Abdomen: Soft and nontender. Extremities: On the left side the patient has a VAC in place. There is no surrounding erythema. On the right side there is a large dressing around the site where the split-thickness skin graft was taken. LAB AND X-RAY: CBC shows a white count of 5,870, hemoglobin 11.7, and platelet count 292,000. Creatinine is 0.7. GFR is greater than 60. ASSESSMENT AND PLAN: The patient had an infected, necrotic hip wound which has been debrided and now has a graft on it. My plan is to continue Zosyn for the time being. The patient's comorbidities include alcoholism and the fact that when the patient fell she was down for hours on her hip. The patient also has a history of depression. cc: Shad Fink MD
[2017-04-03] MEDS: MORPHINE IV PRN ×2 (16:54→22:38)
[2017-04-03] MEDS: XANAX PO SCH (20:40)
[2017-04-04] MEDS: ZOSYN 3.375 GM/NS 3.375 GM/50 ML IVPB IV SCH ×4 (05:05→22:17)
[2017-04-04] MEDS: TORADOL PO PRN (05:40)
[2017-04-04] MEDS: PRILOSEC PO SCH ×2 (05:40→06:03)
[2017-04-04] MEDS: OFIRMEV 1000 MG/ISOTONIC SOLN 1,000 MG/100 ML BOTTLE IV SCH ×3 (05:40→22:13)
[2017-04-04 05:59] LABS: MANUAL DIFF NEEDED? NO
[2017-04-04 06:24] LABS: BASO% 0.7 % (0.0-0.8); EOS# 0.16 X1000 (0.0-0.7); EOS% 2.8 % (0.0-10.0); HEMATOCRIT 32.2 % (37.0-47.0); HEMOGLOBIN 10.4 g/dL (12.0-16.0); LYMPH# 2.07 X1000 (1.2-3.4); LYMPH% 36.5 % (20.5-51.1); MCH 31.8 PG (27-31); MCHC 32.3 g/dL (33-37); MCV 98.5 FL (81-99); MONO# 0.82 X1000 (0.11-0.59); MONO% 14.5 % (1.7-9.3); MPV 9.6 FL (7.4-10.4); NEUT% 45.5 % (42.2-75.2); PLT 277 X1000 (130-400); RBC 3.27 XMIL (4.2-5.4)
[2017-04-04 06:31] LABS: AGAP 8; BUN 9 mg/dL (8-22); CALCIUM 8.6 mg/dL (8.8-10.2); CHLORIDE 109 mmol/L (98-107); COSMO 282; POTASSIUM 3.7 mmol/L (3.5-5.1); SODIUM 143 mmol/L (136-145); TCO2 26 mmol/L (25-35)
[2017-04-04] MEDS: MIRALAX PO SCH ×2 (07:59→22:17)
[2017-04-04] MEDS: DULCOLAX PR SCH (07:59)
[2017-04-04] MEDS: PERIDEX MT SCH ×2 (07:59→22:17)
[2017-04-04] MEDS: MAG-OX PO SCH ×2 (07:59→22:17)
--- NOTE | 2017-04-04 08:13 | PROGRESS NOTE ---
DATE: 04/04/2017 PRESENT ILLNESS: The patient is status post debridement of a necrotic left hip wound. She recently had placement of a split-thickness skin graft on the wound. All the patient's surgeries have been done by Dr. Hwang. MEDICATIONS: The patient is on Zosyn, and this is day 5 of treatment with that antibiotic. PHYSICAL EXAMINATION: Vital Signs: Temperature is 97.6 degrees, pulse 66, respirations 18, blood pressure 128/75. In general, this is a somewhat ill-appearing, middle-aged female. She is in no acute distress. Lungs clear to auscultation. Cardiovascular: Heart rate is regular. Abdomen is soft and not tender. The patient's left leg has a VAC in place. There is no erythema. The patient's right leg, where the skin graft was taken from it, has a dressing on it. The dressing is intact. The patient's IV site is not erythematous or swollen. LABORATORY DATA AND X-RAY: CBC today shows a white count of 5670. Hemoglobin 10.4, and platelet count 277,000. Creatinine is 0.6. GFR is greater than 60. Yesterday, the patient had a CT scan of the head and it showed that there was no parenchymal hemorrhage. There was mild atrophy and there was no sinus opacification. ASSESSMENT AND PLAN: The patient has a necrotic left hip wound. She will continue to receive Zosyn, and she has had split-thickness skin grafts applied to the wound. The patient's comorbidities include history of alcoholism and the fact that, when the patient fell down on her hip, she was there for hours. The patient also has a history of depression. cc: Shad Fink MD
--- NOTE | 2017-04-04 10:58 | PROGRESS NOTE ---
DATE: 04/04/2017 SUBJECTIVE: The patient reports some pain around the left hip where she got the skin graft. Also patient reports worrying and chronic anxiety. Denies fever or chills. OBJECTIVE: Vital Signs: Temperature 97.6 degrees, heart rate 66, respiratory rate 18 and blood pressure 128/75, O2 saturation 98% on room air. General Examination: This is a chronically ill- looking, frail, looking older than her age, 61-year-old female, lying in bed in no acute distress. HEENT: Head is normocephalic, atraumatic. Anicteric sclerae and pale conjunctivae. Mucous membranes moist. Neck: Supple. No JVD noted. No carotid bruits. No lymphadenopathy. No thyromegaly. Cardiovascular exam: S1, S2 heard. No murmurs, gallops, or rubs. Regular rate and rhythm. Respiratory: Clear bilaterally to auscultation. No work of breathing or using accessory muscles. Abdomen: Soft, nontender to palpation. Bowel sounds present. No organomegaly. Extremities: No clubbing, cyanosis, or edema. Peripheral pulses present in both legs. Neurological exam: Patient alert and oriented x3. Moves 4 extremities. LABORATORY DATA: Reviewed. ASSESSMENT AND PLAN: 1. Left hip necrotic wound status post wound VAC placed. Dr. Hwang following this patient. Apparently he is planning to keep this patient until next Saturday. Will follow up his recommendations. 2. Proteus mirabilis urinary tract infection. Patient is on Zosyn. Dr. Fink is following this patient. 3. Gastrointestinal bleeding. Hemoglobin is so far stable. He has recently received 2 days ago 2 units of blood and hemoglobin is now 10.4. We will continue checking complete blood count. 4. Chronic alcoholism. The patient has been advised to stopped drinking alcohol. 5. Microcytic anemia. Of course, most likely related to alcohol abuse. We will continue checking complete blood count and we will provide thiamine as well. 6. Chronic anxiety. Patient is on Xanax, but she reports that is not controlling her anxiety. So, we are going to switch to Klonopin 0.5 mg oral twice daily. We will see how she does. 7. Physical deconditioning. Patient apparently was able to walk around with a walker before surgery, but now she has become very weak. Will see what physical therapy has to say. That will be really difficult for this patient if she needs to go to rehabilitation because she does not have any insurance. I will follow recommendations from physical therapy. cc: Grayson Razo MD
[2017-04-04] MEDS: KLONOPIN PO SCH ×2 (11:03→22:17)
[2017-04-04] MEDS: MORPHINE IV PRN (12:20)
[2017-04-04] MEDS: ZOFRAN IV PRN (18:07)
[2017-04-05 04:10] VITALS: BP 135/77
[2017-04-05] MEDS: ZOSYN 3.375 GM/NS 3.375 GM/50 ML IVPB IV SCH ×2 (05:03→16:25)
[2017-04-05] MEDS: OFIRMEV 1000 MG/ISOTONIC SOLN 1,000 MG/100 ML BOTTLE IV SCH ×2 (05:03→16:25)
[2017-04-05 05:37] LABS: MANUAL DIFF NEEDED? NO
[2017-04-05 05:48] LABS: BASO% 0.6 % (0.0-0.8); EOS% 3.8 % (0.0-10.0); HEMATOCRIT 32.7 % (37.0-47.0); HEMOGLOBIN 10.4 g/dL (12.0-16.0); LYMPH# 1.82 X1000 (1.2-3.4); LYMPH% 34.6 % (20.5-51.1); MCH 30.8 PG (27-31); MCHC 31.8 g/dL (33-37); MCV 96.7 FL (81-99); MONO# 0.67 X1000 (0.11-0.59); MONO% 12.7 % (1.7-9.3); MPV 9.7 FL (7.4-10.4); NEUT% 48.3 % (42.2-75.2); PLT 275 X1000 (130-400); RBC 3.38 XMIL (4.2-5.4)
[2017-04-05 06:00] LABS: AGAP 7; BUN 8 mg/dL (8-22); CHLORIDE 107 mmol/L (98-107); COSMO 275; POTASSIUM 3.7 mmol/L (3.5-5.1); SODIUM 139 mmol/L (136-145); TCO2 25 mmol/L (25-35)
[2017-04-05] MEDS: PRILOSEC PO SCH (09:25)
[2017-04-05] MEDS: KLONOPIN PO SCH (09:25)
[2017-04-05] MEDS: PERIDEX MT SCH (09:25)
[2017-04-05] MEDS: MAG-OX PO SCH (09:25)
[2017-04-05] MEDS: MIRALAX PO SCH (09:26)
[2017-04-05] MEDS: PHENERGAN IV PRN (09:26)
[2017-04-05] MEDS: DULCOLAX PR SCH (09:26)
[2017-04-05] MEDS: MORPHINE IV PRN ×2 (09:27→12:40)
--- NOTE | 2017-04-05 11:15 | PROGRESS NOTE ---
DATE: 04/05/2017 The patient is to be sent home today. Dr. Hwang will determine what kind wound dressings she needs. The patient is going to be sent home on Levaquin 500 mg daily p.o. for another 7 days. The patient will have follow up with Dr. Hwang. I am available to see the patient on a p.r.n. basis. cc: Shad Fink MD
--- NOTE | 2017-04-05 19:02 | DISCHARGE SUMMARY ---
ADMISSION DATE: 02/27/2017 DISCHARGE DATE: 04/05/2017 CONSULTATIONS: 1. Aldo Shah MD with Gastroenterology. 2. Bhupendra Hwang MD with General Surgery. 3. Shad Fink MD with Infectious Disease. PERTINENT PROCEDURES: 1. Abdominal x-ray showed left lower lobe infiltrate most consistent with atelectasis or pneumonia, mild retained fecal material within the rectum, no evidence of obstruction. 2. Head CT showed mild atrophy, no hemorrhage. 3. Abdominal ultrasound showed questionable mild increase in liver echotexture suggesting mild hepatic steatosis, incidental bilateral pleural effusions. 4. Debridement of a left necrotic hip wound 7x2x2 cm where a wound VAC was deployed by Dr. Bhupendra Hwang. 5. Wound vacuum assisted closure, removal of split thickness graft from donor site on the right side, replacement of wound VAC by Dr. Bhupendra Hwang. 6. Head CT showed no hemorrhage, no change since prior examination. DISCHARGE DIAGNOSES: 1. Left hip necrotic wound status post debridement with wound VAC placement and then wound VAC assisted closure removal with split-thickness graft from donor site of the right thigh with replacement of wound VAC by Dr. Hwang. She will be discharged home today. Dr. Hwang has spoke with the daughter as well as Jihan the wound care nurse. They have been taught wound care and given instructions. 2. Proteus mirabilis urinary tract infection. The patient is being discharged home on p.o. Levaquin. 3. GI bleed. Hemoglobin and hematocrit is stable status post 2 units of PRBCs. 4. Chronic alcoholism. The patient has been advised daily on alcohol cessation. 5. Macrocytic anemia secondary to alcohol abuse. 6. Chronic anxiety. 7. Physical deconditioning. The patient has worked with Physical Therapy. Their recommendation was rehabilitation, however, she has no insurance. Social workers were involved in placement of the patient. R was also involved. The patient will be returning home with her daughter. 8. Altered mental status, multifactorial, resolved. 9. Dehydration resolved. 10. Electrolyte imbalances multifactorial including hypokalemia, hyponatremia, resolved. 11. Bipolar disorder. Aware. 12. Rhabdomyolysis resolved. 13. Acute kidney injury resolved. 14. Elevated LFTs improved. HOSPITAL COURSE: Ms. Freeman is a 61-year-old female who has a past medical history of alcohol abuse, depression, hyponatremia who presented to [place] ED after being found on the floor covered in vomit and urine after police were called for a welfare check. Apparently the daughter had not heard from her mother in a week. On arrival to the emergency room the patient was alert. She was able to give her name, date of but she was not able to give much more information. She was noted to have bruising to the right side of her face around her eye, left cheek as well as bilateral arms. She was unable to give any history of events over the last week. CT of the head revealed mild atrophy with no hemorrhage. She had a white count of 11 as well as a potassium of 2.8 and CPK of 910. She was given a banana bag in the ED and was admitted to the ICU and continued on hydration on D5 and half given her hyponatremia with supplementation of her electrolytes. She was monitored closely for any DTs or alcohol withdrawal. On admission, patient did have a Hemoccult stool, however, her hemoglobin and hematocrit was stable. They felt that this was due to her chronic alcohol use, however, she did have an acute drop in her hemoglobin and hematocrit from 8 to 6. She was transfused with 2 units and transferred to [facility] with a GI consult where we just continued with supportive care. Wound Care has been following the patient since her admission due to multiple wounds to the right and left buttock , sacral area, left lateral thigh. Dr. Bhupendra Hwang was also consulted in reference to the left hip wound. Despite wound care it became necrotic. He did debridement with anaerobic and aerobic cultures. The debridement was 7 x 2 x 2 cm with wound VAC deployed. She was also followed by Dr. Shad Fink with Infectious Disease. She did have a urine culture that was growing E. coli and Proteus for which she was started on IV antibiotics. On 04/01/2017, Dr. Hwang went in and did a wound VAC assisted closure removal of split thickness graft from the donor site on the right thigh and replacement of a wound VAC. The patient spent several days in the hospital secondary to her daughter having a medical condition and not being able to be home to care for her. She was unable to be placed in any type of rehabilitation due to not having any insurance. Cover Inspector did try to get her placement. They did get DHR involved. They did deem that she could be discharged home with her daughter. The daughter is here today. They have spoken with Dr. Worrell, Dr. Hwang, as well as the wound care nurse. They have done teaching on how to care for her wound. Dr. Fink is sending her home on Levaquin 500 mg p.o. daily for another 7 days. She will follow up with Dr. Hwang and Dr. Fink is available on a p.r.n. basis to see the patient. VITAL SIGNS AT TIME OF DISCHARGE: Temperature is 98.8 degrees, heart rate 66, respirations 16, blood pressure 135/77, O2 is 96% on room air. DISCHARGE DIET: GI soft. DISCHARGE MEDICATIONS PER DR. WORRELL: 1. Klonopin 0.5 mg p.o. b.i.d. 2. Collyer 10/325, 1 each p.o. q.4 hours p.r.n. 3. Levaquin 500 mg p.o. daily. 4. Multivitamin 1 each p.o. daily. 5. Prilosec 20 mg p.o. daily. 6. Zofran 4 mg p.o. q.4 hours p.r.n. 7. MiraLAX 17 g p.o. b.i.d. FOLLOWUP: Ms. Freeman is being discharged home with her daughter. They will do wound care as instructed by Dr. Hwang. She will continue with her antibiotics for 5 days. They will call Dr. Hwang office on Saturday for an appointment time. She can return to the ED for any worsening of symptoms. DISCHARGE TIME: Greater than 40 minutes. Dictated by MEHRDAD Betancourt for Grayson Razo MD cc: Grayson Razo MD [facility]PT[facility] HOSPITALMarcella
[2017-04-29] MEDS ORDERED: NS 1,000 ML ONE (22:12)
== END 2017-04-05 16:39 | disposition home or self-care (01) ==
LOC: P.ED 22:00 → SUATTDRO 02-27 00:53 → P.ICU 02-27 00:53 → P.MEDSURG 03-02 14:35 → UNDODISIN 03-03 20:10 → 4N 03-03 21:03
PROVIDERS: ATTEND Internal Medicine

== ENCOUNTER 2017-05-10 12:58 | Inpatient (IN) ==
[2017-05-10] MEDS ORDERED: SODIUM BICARBONATE 8.4% ONE ×2 (13:13→15:00)
[2017-05-10] MEDS ORDERED: SODIUM BICARBONATE 8.4% IV PUSH ONE (13:13)
[2017-05-10 13:20] LABS: OCCULT BLOOD 1 POSITIVE (NEGATIVE)
[2017-05-10 13:26] LABS: EOS# 0.01 X1000 (0.0-0.7); EOS% 0.6 % (0.0-10.0); HEMATOCRIT 35.6 % (37.0-47.0); HEMOGLOBIN 11.7 g/dL (12.0-16.0); IMM GRAN# 0.01 X1000 (0.0-0.04); IMM GRAN% 0.6 % (0.0-0.5); LYMPH# 0.69 X1000 (1.2-3.4); LYMPH% 43.9 % (20.5-51.1); MANUAL DIFF NEEDED? NO; MCH 32.4 PG (27-31); MCHC 32.9 g/dL (33-37); MCV 98.6 FL (81-99); MONO# 0.15 X1000 (0.11-0.59); MONO% 9.6 % (1.7-9.3); NEUT% 45.3 % (42.2-75.2); PLT 131 X1000 (130-400); RBC 3.61 XMIL (4.2-5.4)
[2017-05-10 13:29] LABS: UR AMPHETAMINES QUAL NONE DETECTED (NONE DETECT); UR BARBITUATES QUAL NONE DETECTED (NONE DETECT); UR BENZODIAZEPIN QUAL NONE DETECTED (NONE DETECT); UR CANNABINOIDS QUAL NONE DETECTED (NONE DETECT); UR COCAINE QUAL NONE DETECTED (NONE DETECT); UR MDMA QUAL NONE DETECTED (NONE DETECT); UR METHADONE QUAL NONE DETECTED (NONE DETECT); UR METHAMPHETAMINE QUAL NONE DETECTED (NONE DETECT); UR OPIATES QUAL NONE DETECTED (NONE DETECT); UR OXYCODONE QUAL NONE DETECTED (NONE DETECT); UR PCP QUAL NONE DETECTED (NONE DETECT); UR TCA QUAL NONE DETECTED (NONE DETECT)
[2017-05-10] MEDS ORDERED: NS 3,000 ML ONE (13:40)
[2017-05-10 13:41] LABS: INR 1.44 (0.86-1.15); PROTIME 18.7 Seconds (12.1-15.5)
--- NOTE | 2017-05-10 13:41 | Diag Imaging Result Doc PS360 ---
EXAM: CHEST-PORTABLE HISTORY: full arrest TECHNIQUE: Single view of the chest was performed portably. COMPARISON: 02/27/2017 FINDINGS: There is an endotracheal tube in appropriate position. An Angiocath projects right neck lung apex. There are surgical clips at gastroesophageal junction. The cardiomediastinal silhouette is within normal limits. The pulmonary vasculature is not congested. No infiltrate, effusion, or pneumothorax is appreciated. IMPRESSION: Satisfactory placement of the endotracheal tube. No acute cardiopulmonary abnormality is identified. Electronically signed by Khushboo Jean 05/10/2017 1:39 PM
[2017-05-10] MEDS ORDERED: LEVOPHED 8 MG in D5 1/2 NS 250 ML IV SCH ×2 (13:45→14:00)
[2017-05-10 13:51] LABS: BE -24.4 mmoll (-3.0-3.0); BLOOD TYPE ARTERIAL; METHB 1.4 % (0.0-1.5); O2(CT) 16.9 mL/dL (15.0-23.0); PO2(98.6) 563 mmHg (60-100); SAMPLE BLOOD; SAO2 100.5 % (95.0-100.0); THB 11.2 g/dL (11.5-17.4)
[2017-05-10 13:54] LABS: BE -20.7 mmoll (-3.0-3.0); BLOOD TYPE ARTERIAL; METHB 1.4 % (0.0-1.5); O2(CT) 12.7 mL/dL (15.0-23.0); PCO2(98.6) 34 mmHg (35-45); PO2(98.6) 59 mmHg (60-100); SAMPLE BLOOD; SAO2 88.4 % (95.0-100.0); SRATE 12 BPM; THB 10.6 g/dL (11.5-17.4); TVOL 350 mL
[2017-05-10 13:54] LABS: ALBUMIN 2.4 g/dL (3.5-5.0); MAGNESIUM 1.9 mg/dL (1.5-2.7); POTASSIUM 2.9 mmol/L (3.5-5.1); TOTAL BILIRUBIN 3.3 mg/dL (0.20-1.00); TOTAL PROTEIN 4.4 g/dL (6.3-8.3)
[2017-05-10 13:55] LABS: CALCIUM 5.3 mg/dL (8.8-10.2)
[2017-05-10 13:57] LABS: PCO2(98.6) 19 mmHg (35-45); pH(98.6) 7.02 (7.35-7.45)
[2017-05-10 13:58] LABS: ALLEN TEST NO; DRAW SITE R FEMORAL; MODALITY AMBU BAG
[2017-05-10 14:00] LABS: pH(98.6) 7.03 (7.35-7.45)
[2017-05-10 14:01] LABS: ALLEN TEST NO; DRAW SITE R FEMORAL; MODALITY VENTILATOR
[2017-05-10 14:08] LABS: BILIRUBIN URINE NEGATIVE (NEGATIVE); BLOOD URINE NEGATIVE (NEGATIVE); CLARITY CLEAR (CLEAR); COLOR AMBER; GLUCOSE URINE NEGATIVE (NEGATIVE); LEUKOCYTES URINE TRACE (NEGATIVE); NITRITE URINE NEGATIVE (NEGATIVE); PROTEIN URINE 1+(30 mg/dL) mg/dL (NEGATIVE)
[2017-05-10 14:13] LABS: URINE CAST NONE SEEN /LPF; URINE CRYSTAL NONE SEEN /HPF; URINE CULTURE PL NEEDED? YES; URINE EPITHELIAL CELLS <10 /HPF (<10); URINE RBC <10 /HPF (<10); URINE SOURCE CATH; URINE WBC <10 /HPF (<10)
[2017-05-10] MEDS ORDERED: ZOSYN 3.375 GM in NS 50 ML IV ONE (14:14)
[2017-05-10 14:23] LABS: UROBILINOGEN URINE 3+(8 mg/dL)
[2017-05-10] MEDS ORDERED: EPINEPHRINE ONE (14:59)
[2017-05-10] MEDS ORDERED: NS 250 ML ONE (15:00)
[2017-05-10] MEDS ORDERED: EPINEPHRINE SYRINGE ONE (15:00)
[2017-05-10] MEDS ORDERED: CALCIUM CHLORIDE SYRINGE ONE (15:00)
[2017-05-10] MEDS ORDERED: EPINEPHRINE 4 MG in NS 250 ML IV SCH ×2 (15:00→17:00)
[2017-05-10] MEDS ORDERED: NS ONE (15:00)
[2017-05-10] MEDS ORDERED: D5W 250 ML ONE (15:08)
[2017-05-10] MEDS ORDERED: NS 1,000 ML ONE (15:20)
--- NOTE | 2017-05-10 16:05 | Diag Imaging Result Doc PS360 ---
CT HEAD W/O CONTRAST - 05/10/2017 INDICATION: unresponsive, posturing TECHNIQUE: A CT dose reduction protocol was used. COMPARISON: 04/03/2017 FINDINGS: The ventricles and sulci are normal in size and contour. No intracranial mass or hemorrhage. The skull is intact. The sinuses mastoids and middle ears are clear. IMPRESSION: Negative exam. Electronically signed by Jonathan Piek 05/10/2017 4:02 PM
[2017-05-10] MEDS ORDERED: VANCOMYCIN IV PER PHARMACY MISC SCH (16:50)
[2017-05-10] MEDS ORDERED: SODIUM CHLORIDE 0.9% INJ SCH (16:50)
[2017-05-10] MEDS ORDERED: PROTONIX IV SCH (16:50)
[2017-05-10] MEDS ORDERED: ATIVAN IV PRN (17:30)
[2017-05-10] MEDS ORDERED: MORPHINE IV PRN (17:31)
[2017-05-10] MEDS: PROTONIX 80 MG in NS 80 ML IV SCH (17:40)
[2017-05-10] MEDS: EPINEPHRINE 8 MG in D5W 250 ML IV SCH (17:41)
[2017-05-10] MEDS ORDERED: SOLU-CORTEF IV ONE (17:44)
[2017-05-10] MEDS ORDERED: POTASSIUM CHLORIDE 40 MEQ in 1/2 NS 250 ML IV ONE (18:00)
[2017-05-10] MEDS ORDERED: VANCOMYCIN 1 GM/NS 1 GM/250 ML IVPB IV ONE (19:00)
[2017-05-10] MEDS: SODIUM BICARBONATE 8.4% 150 MEQ in D5W 1,000 ML IV SCH (19:00)
[2017-05-10] MEDS ORDERED: DOPAMINE 400 MG/D5W 400 MG/500 ML IV.SOLN IV SCH (19:30)
[2017-05-10] MEDS ORDERED: PITRESSIN 40 UNIT in NS 100 ML IV SCH (19:45)
[2017-05-10 20:25] LABS: ALLEN TEST YES; BE -23.9 mmoll (-3.0-3.0); BLOOD TYPE ARTERIAL; DRAW SITE L RADIAL; METHB 1.1 % (0.0-1.5); O2(CT) 8.8 mL/dL (15.0-23.0); PCO2(98.6) 44 mmHg (35-45); SAMPLE BLOOD; SAO2 60.3 % (95.0-100.0); SRATE 14 BPM; THB 10.6 g/dL (11.5-17.4); TVOL 500 mL
[2017-05-10 20:27] LABS: MODALITY VENTILATOR; PO2(98.6) 37 mmHg (60-100); pH(98.6) 6.89 (7.35-7.45)
[2017-05-10 20:40] LABS: CK INDEX 4.1 (0.0-2.5)
[2017-05-10 20:46] LABS: HEMATOCRIT 37.6 % (37.0-47.0); HEMOGLOBIN 11.9 g/dL (12.0-16.0)
[2017-05-10 20:47] LABS: ALBUMIN 1.7 g/dL (3.5-5.0); CALCIUM 5.8 mg/dL (8.8-10.2); POTASSIUM 4.1 mmol/L (3.5-5.1); TOTAL BILIRUBIN 3.29 mg/dL (0.20-1.00); TOTAL PROTEIN 3.4 g/dL (6.3-8.3)
[2017-05-10] MEDS ORDERED: D50W SYRINGE ONE (20:49)
[2017-05-10] MEDS ORDERED: M.V.I.-12 10 ML, FOLIC ACID 1 MG, MAGNESIUM SULFATE 1 GM, THIAMINE 100 MG in NS 1,000 ML IV SCH (21:00)
[2017-05-10] MEDS: LEVOPHED 8 MG in D5 1/2 NS 250 ML IV SCH (21:13)
[2017-05-10] MEDS ORDERED: LACRI-LUBE OPH OINT BOTH EYES PRN (21:19)
[2017-05-10] MEDS ORDERED: SODIUM BICARBONATE 8.4% IV ONE (21:41)
[2017-05-10] MEDS ORDERED: CALCIUM GLUCONATE 4.65 MEQ in NS 50 ML IV ONE (21:42)
[2017-05-10] MEDS ORDERED: NORCURON IV ONE (21:55)
[2017-05-10] MEDS ORDERED: STERILE WATER INJ. ONE (21:56)
[2017-05-10] MEDS ORDERED: NORCURON ONE (21:56)
[2017-05-10] MEDS: 1/2 NS 1,000 ML IV SCH (22:11)
--- NOTE | 2017-05-10 22:13 | Diag Imaging Result Doc PS360 ---
CHEST-PORTABLE - 05/10/2017 INDICATION: For Post NG Insertion TECHNIQUE: COMPARISON: 05/10/2017 FINDINGS: There is a new nasogastric tube with the tip in the stomach. There are numerous stable surgical clips in the region of the stomach. The bowels are all hyperinflated with gas diffusely. The reason is unclear. Stable endotracheal tube in good position. There may be a temperature probe in the esophagus. There are some new hazy bilateral perihilar infiltrates in the lungs. Heart size is top normal. IMPRESSION: No complication from support tube placement. Other nonspecific findings described above. Electronically signed by Jonathan Pike 05/10/2017 10:11 PM
[2017-05-10] MEDS: FENTANYL 1,000 MICROGM in NS 80 ML IV SCH (22:22)
[2017-05-10] MEDS ORDERED: D50W SYRINGE IV PRN (22:43)
[2017-05-10] MEDS: DUONEB (A & A) INH SCH (22:44)
[2017-05-10] MEDS: ALBUMIN 25% IV SCH (23:01)
[2017-05-10 23:37] LABS: ALBUMIN 1.4 g/dL (3.5-5.0); CALCIUM 4.9 mg/dL (8.8-10.2); POTASSIUM 3.6 mmol/L (3.5-5.1); TOTAL PROTEIN 2.6 g/dL (6.3-8.3)
[2017-05-10] MEDS ORDERED: CALCIUM GLUCONATE 1 GM in NS 50 ML IV ONE (23:38)
[2017-05-11] MEDS: 1/2 NS 1,000 ML IV SCH ×2 (01:16)
[2017-05-11] MEDS: NORCURON IV PRN ×2 (03:13→10:21)
[2017-05-11] MEDS: LACTULOSE PO SCH ×2 (03:14→09:12)
[2017-05-11] MEDS: ALBUMIN 25% IV SCH ×3 (03:19→09:30)
[2017-05-11] MEDS: DUONEB (A & A) INH SCH ×4 (03:28→15:11)
[2017-05-11] MEDS: PROTONIX 80 MG in NS 80 ML IV SCH (04:04)
[2017-05-11 04:31] LABS: BE -19.2 mmoll (-3.0-3.0); BLOOD TYPE ARTERIAL; O2(CT) 8.6 mL/dL (15.0-23.0); SAMPLE BLOOD; SAO2 66.7 % (95.0-100.0); THB 9.4 g/dL (11.5-17.4)
[2017-05-11 04:32] LABS: ALLEN TEST YES; DRAW SITE R FEMORAL; SRATE 28 BPM; TVOL 500 mL
[2017-05-11 04:33] LABS: pH(98.6) 7.06 (7.35-7.45)
[2017-05-11 04:34] LABS: PCO2(98.6) 35 mmHg (35-45); PO2(98.6) 36 mmHg (60-100)
[2017-05-11 04:35] LABS: MODALITY VENTILATOR
[2017-05-11 06:11] LABS: EOS# 0.04 X1000 (0.0-0.7); EOS% 3.5 % (0.0-10.0); HEMATOCRIT 29.2 % (37.0-47.0); HEMOGLOBIN 9.6 g/dL (12.0-16.0); IMM GRAN# 0.04 X1000 (0.0-0.04); IMM GRAN% 3.5 % (0.0-0.5); LYMPH% 70.2 % (20.5-51.1); MANUAL DIFF NEEDED? YES; MCH 31.8 PG (27-31); MCHC 32.9 g/dL (33-37); MCV 96.7 FL (81-99); MONO# 0.03 X1000 (0.11-0.59); MONO% 2.6 % (1.7-9.3); MPV 9.5 FL (7.4-10.4); NEUT% 20.2 % (42.2-75.2); PLT 45 X1000 (130-400); RBC 3.02 XMIL (4.2-5.4)
[2017-05-11 06:16] LABS: ALBUMIN 2.4 g/dL (3.5-5.0); POTASSIUM 3.1 mmol/L (3.5-5.1); TOTAL BILIRUBIN 3.97 mg/dL (0.20-1.00); TOTAL PROTEIN 3.3 g/dL (6.3-8.3)
[2017-05-11] MEDS: LEVOPHED 8 MG in D5 1/2 NS 250 ML IV SCH ×2 (06:17→10:23)
[2017-05-11] MEDS: SODIUM BICARBONATE 8.4% 150 MEQ in D5W 1,000 ML IV SCH (06:17)
[2017-05-11] MEDS ORDERED: ZOSYN 2.25 GM in NS 50 ML IV SCH (07:00)
[2017-05-11 07:26] LABS: LYMPHS 70 % (21-51); MONO 10 % (1-9)
[2017-05-11] MEDS: EPINEPHRINE 8 MG in D5W 250 ML IV SCH (07:50)
[2017-05-11] MEDS: FENTANYL 1,000 MICROGM in NS 80 ML IV SCH (07:50)
[2017-05-11] MEDS ORDERED: CALCIUM GLUCONATE 4.65 MEQ in NS 50 ML IV ONE (08:37)
[2017-05-11] MEDS ORDERED: SOLU-CORTEF IV SCH ×2 (09:00)
--- NOTE | 2017-05-11 09:04 | Diag Imaging Result Doc PS360 ---
CHEST-PORTABLE - 05/11/2017 INDICATION: respiratory failure TECHNIQUE: COMPARISON: 05/10/2017 FINDINGS: Stable support lines and tubes. There is worsening in the central infiltrates bilaterally. Heart size remains normal. No pneumothorax or large effusion. IMPRESSION: Worsening bilateral central infiltrates. Electronically signed by Jonathan Pike 05/11/2017 9:01 AM
[2017-05-11] MEDS ORDERED: STERILE WATER INJ. ONE (10:19)
[2017-05-11] MEDS ORDERED: LEVAQUIN 750 MG/D5W 750 MG/150 ML IVPB IV SCH (11:00)
[2017-05-11 11:36] VITALS: BP 124/58
[2017-05-11] MEDS ORDERED: NS IV SCH (12:00)
[2017-05-11] MEDS ORDERED: MAXIPIME 1 GM in NS 50 ML IV SCH (12:00)
[2017-05-11] MEDS ORDERED: VITAMIN C IV SCH (12:00)
--- NOTE | 2017-05-11 12:30 | Diag Imaging Result Doc PS360 ---
KUB ABDOMEN - 05/11/2017 INDICATION: distension TECHNIQUE: COMPARISON: 02/27/2017 FINDINGS: There is severe gaseous distention of multiple loops of colon, mostly the ascending and transverse colon. There are some abnormally dilated loops of small bowel in the lower abdomen as well. There is rectal gas. No definite free air. No definite fecal impaction. IMPRESSION: Abnormally gas-distended loops of small and large bowel, particularly the colon. Appearance is nonspecific. Electronically signed by Jonathan Pike 05/11/2017 12:27 PM
[2017-05-11] MEDS ORDERED: EPINEPHRINE SYRINGE ONE (15:30)
[2017-05-11] MEDS ORDERED: NS ONE (15:30)
[2017-05-13] MEDS ORDERED: LEVAQUIN 250 MG/D5W 250 MG/50 ML IVPB IV SCH (11:00)
[2017-05-15] MEDS ORDERED: VANCOMYCIN 750 MG in NS 250 ML IV SCH (20:00)
[2017-05-17] MEDS ORDERED: VANCOMYCIN 500 MG/NS 500 MG/100 ML IVPB IV SCH (20:00)
== END 2017-05-11 15:40 | disposition expired ==
LOC: P.ED 12:58 → SUATTDRO 15:42 → P.ICU 15:42 → ICU 16:07 → 4N 05-11 13:28 → ICU 05-11 13:31
PROVIDERS: ATTEND Internal Medicine